=== PATIENT | female | born 1955 ===

== ENCOUNTER 2020-04-24 10:12 | Outpatient (REF) | payer MEDICARE, SELFPAY ==
[2020-04-24 12:14] LABS: Thyroid Stimulating Hormone 0.33 uIU/mL (0.32-4.0)
== END 2020-04-24 10:13 | disposition home or self-care (01) ==
LOC: HO.HMGCLDS 10:12
PROVIDERS: PCP Internal Medicine; Visit Provider Internal Medicine
DX: E03.9 Hypothyroidism, unspecified (principal)
CPT/HCPCS: 84439; 84443

== ENCOUNTER 2020-05-15 13:51 | Outpatient (REF) | payer MEDICARE, SELFPAY ==
--- NOTE | 2020-05-15 13:56 | XR_ITS ---
EXAMINATION: XR HAND, RIGHT CLINICAL INFORMATION: Dog bite injury. COMPARISON: None TECHNIQUE: PA, lateral, and oblique views of the right hand. FINDINGS: There is mild soft tissue swelling and laceration along the proximal fourth finger. No radiographic radiopaque foreign body are fracture seen. Mild degenerative changes are seen along the PIP and DIP joints. XR/XR hand RT min 3V IMPRESSION: Soft tissue swelling proximal fourth finger with laceration. No radiopaque foreign body or fracture seen.
== END 2020-05-15 13:52 | disposition home or self-care (01) ==
LOC: HO.HMGCX 13:51
PROVIDERS: PCP Internal Medicine; Visit Provider Nurse Practitioner Family
DX: Z13.89 Encounter for screening for other disorder (principal)
CPT/HCPCS: 73130

== ENCOUNTER 2020-05-15 17:43 | Outpatient (REF) | payer MEDICARE, SELFPAY | END 2020-05-15 17:44 | disposition home or self-care (01) | LOC: HO.LAB 17:43 | PROVIDERS: Visit Provider Nurse Practitioner Family | DX: L03.90 Cellulitis, unspecified (principal); S61.259A Open bite of unspecified finger without damage to nail, initial encounter; W54.0XXA Bitten by dog, initial encounter | CPT/HCPCS: 73130; 87071; 87205 ==

== ENCOUNTER 2020-05-30 11:43 | Emergency (ER) | payer MEDICARE, SELFPAY ==
--- NOTE | 2020-05-30 12:16 | ED_ITS ---
HPI - Animal Bite General Chief Complaint: Animal Bite Stated Complaint: dog bite on finger Time Seen by Provider: 05/30/20 12:06 Source: patient Mode of arrival: ambulatory Limitations: no limitations History of Present Illness HPI narrative: 64-year-old female with a past medical history of COPD, hypothyroidism here with right 4th digit swelling, pain. The patient tells me on May 15 she broke up a fight between 2 dogs and was bitten on the right hand. She was seen at urgent care and started on doxycycline for presumed cellulitis. She had x-rays done which was negative for any foreign body or evidence of osteomyelitis. A wound culture was sent from the site and grew pasteurella. The patient was changed to Levaquin 2 days later by Urgent Care. She completed her course 05/28. She tells me initially her our entire hand extending over the wrist was swollen and red. She tells me that this is imp roved but her 4th digit is still swollen, painful and she has difficulty bending and extending the finger. She tells me this digit is where the initial bite was. No fevers or chills. complaint: animal bite Onset (ago): week(s) Animal: dog Description of animal: immunizations UTD and appeared well Mechanism: bite Location - Extremities: right: hand Pain description: dull Context: animals fighting Related Data Home Medications Medication Instructions Recorded Confirmed albuterol sulfate 90 mcg/actuation 2 puff INHALATION Q6H PRN 05/01/20 05/01/20 aerosol inhaler budesonide-formoterol HFA 160 2 puff INHALATION Q12H 05/01/20 05/01/20 mcg-4.5 mcg/actuation aerosol inhaler cetirizine 10 mg tablet 5 mg PO DAILY PRN 05/01/20 05/01/20 cholecalciferol (vitamin D3) 50 50 mcg PO DAILY 05/01/20 05/01/20 mcg (2,000 unit) capsule fluticasone propionate 50 1 spray INTRANASAL DAILY 05/01/20 05/01/20 mcg/actuation nasal spray,suspension flu vacc [id number](65yr up)-PF 240 ml IM 05/15/20 mcg/0.7 mL intramuscular syringe Previous Rx's Medication Instructions Recorded levothyroxine 112 mcg tablet 112 mcg PO DAILY #90 tab 04/16/20 doxycycline hyclate 100 mg tablet 100 mg PO BID 10 Days #20 tab 05/15/20 levofloxacin 750 mg tablet 750 mg PO DAILY 10 Days #10 tab 05/18/20 Allergies Allergy/AdvReac Type Severity Reaction Status Date / Time penicillin V Allergy Unknown hives Verified 05/15/20 13:04 Bee stings Allergy Unknown hives Uncoded 05/15/20 13:04 Review of Systems Review of Systems: Yes all other systems are reviewed and are negative Constitutional: Constitutional: Reports no additional constitutional complaints, Denies body ache(s), Denies chills, Denies fever(s), Denies headache(s) and Denies weakness Eyes: Eyes: Reports no additional eye complaints and Denies change in vision ENT: Reports system reviewed and no additional complaints, except as documented, Denies dizziness, Denies headache(s), Denies nasal congestion, Denies nasal discharge and Denies neck pain Cardiovascular: Cardiovascular: Reports no additional cardiovascular complaints, Denies chest pain, Denies leg edema and Denies dyspnea Respiratory: Respiratory: Reports no additional respiratory complaints, Denies cough and Denies dyspnea Gastrointestinal: Gastrointestinal: Reports no additional gastrointestinal complaints, Denies abdominal pain, Denies diarrhea, Denies nausea and Denies vom iting Genitourinary: Genitourinary: Reports no additional female genitourinary complaints and Denies urinary incontinence Musculoskeletal: Musculoskeletal: Reports no additional musculoskeletal complaints, Denies back pain, Reports arthralgias, Reports joint swelling, Reports limited range of motion, Denies neck pain, Denies numbness and Denies tingling Integumentary/Breasts: Skin/Breast: Reports system reviewed and no additional complaints, except as docu and Denies rash Neurologic: Reports system reviewed and no additional complaints, except as documented, Denies Abnormal speech present, Denies dizziness, Denies he adache(s), Denies numbness, Denies tingling and Denies weakness ON LICENSE OF [facility] Past Medical History Attestation statement: The following information was validated with the patient. Source: old records reviewed and nursing notes reviewed Medical History Acquired hypothyroidism Allergic rhinitis Colonoscopy refused COPD (chronic obstructive pulmonary disease) Graves disease Herpes zoster Osteopenia of left hip Urinary, incontinence, stress female Surgical History No pertinent past surgical history Family History Family History Father Diabetes mellitus Mother Diabetes mellitus Brother Bone cancer Daughter No problems noted. Daughter No problems noted. Social History Social History Alcohol intake: never Smoking Status: Former smoker Smoked in Last 30 Days: No Use of substances other than those prescribed or required for medical reasons: No Advance Directives: No Advance Directives Information Provided: Yes Physical Exam Vital Signs: Vital Signs: Last Vital Signs Temp 98.1 F 05/30/20 13:19 Pulse 70 05/30/20 13:19 Resp 16 05/30/20 13:19 BP 104/63 05/30/20 13:19 Pulse Ox 97 05/30/20 13:19 Const: General: cooperative, healthy appearing, comfortable and no acute distress Orientation/consciousness: patient oriented x3 Limitations: no limitations HENMT: Head: Yes normal to inspection Ears: hearing grossly normal bilaterally General nose exam: Normal external nose present Face and sinus: Yes normal facial exam Mouth: Normal oral and palatal mucosa present Throat: Yes posterior oropharynx normal Eyes: General: appearance normal, both eyes and all related structures Pupils: Equal, round and reactive pupils present Neck: Neck: Yes normal visual inspection Chest: Chest palpation & inspection: normal inspection of the chest Resp: Effort & Inspection: normal respiratory effort Auscultation: clear to auscultation bilaterally Cardio: Rate: regular rate Rhythm: regular rhythm Peripheral pulses: Peripheral pulses 2+ throughout GI: Inspection: Yes normal to inspection Palpation (GI): Soft to palpation and nontender Auscultation: normal bowel sounds Back/Spine/Pelvis: Thoracic/Lumbar Spine: thoracic and lumbar spine normal to inspection Skin: General skin exam: no rashes or lesions noted Neuro: General: patient oriented x3, no focal motor deficits and normal sensation to monofilament Cranial nerves: Yes Equal, round and reactive pupils present Cognition (Neuro): normal cognition Speech: No Abnormal speech present Gait exam (Neuro): Normal gait present Motor exam (neuro): 5/5 motor strength present throughout Extrem: Other: Normal cap refill, NV intact distally. Finger is in a partially flexed position and she is able to flex approximately 15 degrees. Unable to full extend. I am passively able to extend the finger although there is some mild pain. At the PIP there is more swelling but no induration or abscess, only mild tenderness. General: Yes normal to inspection Course Course Course Narrative: 64 yo female here with Right hand 4th digit swelling, tenderness and difficulty flexing and extending the finger. Of note, 2 weeks ago patient suffered a dog bite to this hand and had a subsequent Pasteurella + cellulitis treated with 48 hrs of doxycyline then 10 days of levaquin which she completed 2 days ago. She tells me overall she is feeling improved and the cellulitis is much better then previous. No fevers. On exam patient has swelling/tenderness to the PIP of the 4th digit and finger is held in a slight flexion. She is unable to full extend the digit. She is able to flex the digit approximately 15 more degrees. Will repeat imaging to r/o osteomyelitis. Discuss with orthopedics. 1330-x-ray shows arthritic changes. No obvious osteomyelitis. Call out to Orthopedics to discuss [id number]-discussed with Meg VELASQUEZ from Orthopedics. Recommended follow-up 1 week in office with Dr. Alvarez. Warm soaks 3-4 times daily. Passive range of motion. Agrees less likely tenosynovitis as patient has no pain over palmar or dorsa aspect and I am able to passively move the digit (mild pain with this). More likely inflammation of the tendon from the previous injury or may be a small tear. Reviewed worrisome signs and symptoms and when to return to the emergency department. Comfortable with discharge home. MDM - Animal Bite MDM Narrative Medical decision making narrative: Tendon laceration, tenosynovitis, osteomyelitis Medical Records Attestation: I reviewed the patient's medical records. Lab Data Attestation: I reviewed the patient's lab results. Imaging Data hand xray: Attestation: I personally reviewed and interpreted this imaging study as follows: Radiologist's impression: EXAMINATION: XR HAND, RIGHT CLINICAL INFORMATION: Swelling fourth digit. COMPARISON: None TECHNIQUE: PA, lateral, and oblique views of the right hand. FINDINGS: There is loss of PIP and DIP joint space with mild periarticular spurring first digit. No visible acute fracture, dislocation or subluxation seen. The soft tissues are normal. XR/XR hand RT 2V IMPRESSION: Mild degenerative changes PIP and DIP joints. No visible acute fracture, dislocation or lytic process seen. Discharge Plan Discharge Clinical Impression: Tendon dysfunction Patient Disposition: Home, Self-Care Instructions: Tendinitis (ED) Additional Instructions: I think there is some inflammation that is in the tendon from your previous injury. There may also be a small tear to the tendon. I spoke to the orthopedic team. They recommended following up with them within 1 week in the office. I have attached the number. They also recommended doing soaks 3-4 times daily with warm water. Do passive range of motion with her other finger several times a day as well. Return for fevers, increasing redness up the hand as discussed Prescriptions: No Action levothyroxine 112 mcg tablet 112 mcg PO DAILY Qty: 90 RF: 0 levofloxacin 750 mg tablet 750 mg PO DAILY 10 Days Qty: 10 RF: 0 budesonide-formoterol [Symbicort] 160-4.5 mcg/actuation HFA aerosol inhaler 2 puff inhalation Q12H RF: 0 albuterol sulfate [ProAir HFA] 90 mcg/actuation HFA aerosol inhaler 2 puff inhalation Q6H PRNRF: 0 cholecalciferol (vitamin D3) 50 mcg (2,000 unit) capsule 50 mcg PO DAILY RF: 0 cetirizine [All Day Allergy (cetirizine)] 10 mg tablet 5 mg PO DAILY PRNRF: 0 fluticasone propionate [Allergy Relief (fluticasone)] 50 mcg/actuation spray,suspension 1 spray intranasal DAILY RF: 0 Fluzone HighDose Quad 20-21 PF 240 mcg/0.7 mL syringe IM RF: 0 doxycycline hyclate 100 mg tablet 100 mg PO BID 10 Days Qty: 20 RF: 0 Referrals: Chata Alvarez MD [Physician] - 1 week Interventions: ED Discharge Assessment Last Done: 05/30/20 13:59 Discharge Date/Time: 05/30/20 14:00
[2020-05-30 13:19] VITALS: BP 104/63; PULSE 70; RESP 16; TEMP 36.7; O2SAT 97
--- NOTE | 2020-05-30 13:59 | PC.NURSE ---
pt states she will follow with ortho as instructed and return if she develops worsening SX, fever or increased swelling.
== END 2020-05-30 14:00 | disposition home or self-care (01) ==
PROVIDERS: Emergency Provider Emergency Medicine; PCP Internal Medicine
DX: M77.8 Other enthesopathies, not elsewhere classified (principal); M79.644 Pain in right finger(s)
CPT/HCPCS: 73120; 99283; 99284

== ENCOUNTER 2020-06-18 12:37 | Outpatient (REF) | payer MEDICARE, SELFPAY | END 2020-06-18 12:38 | disposition home or self-care (01) | LOC: HO.HOSX 12:37 | PROVIDERS: Visit Provider Orthopaedic Surgery | DX: Z13.89 Encounter for screening for other disorder (principal) ==

== ENCOUNTER 2020-10-16 08:35 | Outpatient (REF) | payer MEDICARE, SELFPAY ==
[2020-10-16 11:24] LABS: MANUAL DIFF FLAG NO
[2020-10-16 11:28] LABS: Basophils Absolute Auto 0.1 X10*3/uL (0.0-0.2); Basophils Percent Auto 0.8 % (0-2); Eosinophils Absolute Auto 0.1 X10*3/uL (0.0-0.4); Eosinophils Percent Auto 1.3 % (0-4); Hematocrit 43.8 % (37-47); Hemoglobin 13.4 g/dl (12.0-16.0); Imm Gran Abs Auto 0.03 X10*3/uL (0.00-0.03); Imm Gran Pct Auto 0.3 % (0.0-0.4); Lymphocytes Absolute Auto 3.4 X10*3/uL (1.2-4.9); Lymphocytes Percent Auto 32.4 % (20-40); Mean Corpuscular HGB Conc 30.6 g/dl (31.0-35.0); Mean Corpuscular Hemoglobin 21.2 pg (27.0-33.0); Mean Corpuscular Volume 69.4 fL (80-98); Mean Platelet Volume 10.3 fL (9.4-12.3); Monocytes Absolute Auto 0.8 X10*3/uL (0.1-1.2); Monocytes Percent Auto 7.5 % (2-11); Neutrophils Percent Auto 57.7 % (45-73); Platelet Count 325 X10*3/uL (160-400); Red Blood Count 6.31 X10*6/uL (4.20-5.50); Red Cell Distribution Width 17.7 % (11.0-16.0); White Blood Count 10.4 X10*3/uL (4.8-10.8)
[2020-10-16 11:56] LABS: Alanine Aminotransferase 14 U/L (0-31); Anion Gap 13 (12-20); Aspartate Amino Transferase 15 U/L (5-31); Blood Urea Nitrogen 12 mg/dL (9-16); Calcium 9.3 mg/dL (8.4-10.2); Carbon Dioxide 27 mmol/L (22-29); Chloride 102 mmol/L (96-108); Cholesterol 167 mg/dL; Estimated Glomerular Filt Rate > 60; Glucose Fasting 88 mg/dL (60-99); HDL Cholesterol 54 mg/dL; LDL Cholesterol Calculated 96 mg/dl; Potassium 4.3 mmol/L (3.3-5.1); Sodium 138 mmol/L (135-145); Triglycerides 87 mg/dL
[2020-10-16 12:02] LABS: Free T4 (Free Thyroxine) 1.11 ng/dL (0.71-1.85); Thyroid Stimulating Hormone 2.29 uIU/mL (0.32-4.0)
== END 2020-10-16 08:36 | disposition home or self-care (01) ==
LOC: HO.HMGCLDS 08:35
PROVIDERS: PCP Internal Medicine; Visit Provider Internal Medicine
DX: M85.852 Other specified disorders of bone density and structure, left thigh (principal); J43.9 Emphysema, unspecified; E03.9 Hypothyroidism, unspecified; I10 Essential (primary) hypertension; Z78.0 Asymptomatic menopausal state
CPT/HCPCS: 36415; 80048; 80061; 82306; 84439; 84443; 84450; 84460; 85025

== ENCOUNTER 2021-05-06 10:26 | Outpatient (REF) | payer MEDICARE, SELFPAY ==
--- NOTE | ~2021-05-06 | CT_ITS ---
EXAMINATION: CT CHEST SCREENING CLINICAL INFORMATION: Nicotine dependence. COMPARISON: CT chest 01/10/2019. TECHNIQUE: Multidetector volumetric CT imaging of the chest is performed without contrast using low dose technique. Additional 2D coronal and sagittal reformatted images and axial 3D maximum intensity projection (MIP) images are generated on the CT workstation. This CT examination was performed using dose optimization techniques as appropriate, variously including the following: *Automated exposure control *Adjustment of mA and/or kV according to patient size (this includes techniques or standardized protocols for targeted exams where dose is matched to indication/reason for exam; i.e. extremities or head) *Use of iterative reconstruction technique DLP: 49 mGy-cm FINDINGS: LUNGS: There is centrilobular and paraseptal emphysema. There are subpleural reticular markings throughout both upper lobes especially right lung. There are bilateral lung nodules. Previously seen 3 mm pulmonary nodule right upper lobe is not visualized at this time. There is however a 2 mm nodule in the right upper lobe axial image 185/6. A 4 mm nodule in the right lower lobe on axial image 287/6 adjacent to the right major fissure is stable. 2 mm nodule left lower lobe axial image 348/6 appears new. Minimal atelectatic changes in the lung bases. MEDIASTINUM: The thyroid lobes are symmetrical and normal. Central trachea and the bronchi are widely patent. The heart size and the great vessels are normal caliber. No abnormal-sized mediastinal or hilar lymph node seen. There is no pericardial effusion. PLEURA: There is no pleural effusion. No pleural mass or thickening. AXILLA: No lymphadenopathy. UPPER ABDOMEN: Visualized liver, spleen, pancreas and bilateral adrenal glands are unremarkable. OSSEOUS STRUCTURES: There is mild spondylosis throughout dorsal spine. No lytic or sclerotic process seen. CT/CT lung screening IMPRESSION: Centrilobular and paraseptal emphysema predominately in the upper lobes. There are bilateral subcentimeter pulmonary nodules. One nodule has resolved and there is a new nodule measuring 2 mm suggestive of waxing and waning nodules. No acute consolidation. No abnormal mediastinal lymphadenopathy. ASSESSMENT: Lung-RADS category 2: Benign. RECOMMENDATION: Annual low-dose chest CT follow-up recommended.
== END 2021-05-06 10:27 | disposition home or self-care (01) ==
LOC: HO.CT 10:26
PROVIDERS: PCP Internal Medicine; Visit Provider Physician Assistant Medical
DX: Z12.2 Encounter for screening for malignant neoplasm of respiratory organs (principal); F17.210 Nicotine dependence, cigarettes, uncomplicated
CPT/HCPCS: 71271

== ENCOUNTER 2021-05-08 09:05 | Outpatient (REF) | payer MEDICARE, SELFPAY ==
[2021-05-08 12:11] LABS: Free T4 (Free Thyroxine) 1.02 ng/dL (0.71-1.85); Thyroid Stimulating Hormone 2.87 uIU/mL (0.32-4.0)
== END 2021-05-08 09:06 | disposition home or self-care (01) ==
LOC: HO.HMGCLDS 09:05
PROVIDERS: PCP Internal Medicine; Visit Provider Internal Medicine
DX: E03.9 Hypothyroidism, unspecified (principal)
CPT/HCPCS: 36415; 84439; 84443

== ENCOUNTER 2022-03-11 08:18 | Outpatient (REF) | payer MEDICARE, SELFPAY ==
[2022-03-11 12:29] LABS: Free T4 (Free Thyroxine) 1.69 ng/dL (0.71-1.85); Thyroid Stimulating Hormone 0.39 uIU/mL (0.32-4.0); Vitamin D 25-OH Total 56.1 ng/mL (>30)
== END 2022-03-11 08:19 | disposition home or self-care (01) ==
LOC: HO.HMGCLDS 08:18
PROVIDERS: PCP Internal Medicine; Visit Provider Internal Medicine
DX: M85.852 Other specified disorders of bone density and structure, left thigh (principal); N95.9 Unspecified menopausal and perimenopausal disorder; E03.9 Hypothyroidism, unspecified
CPT/HCPCS: 36415; 82306; 84439; 84443

== ENCOUNTER 2022-03-28 10:45 | Outpatient (REF) | payer MEDICARE, SELFPAY ==
--- NOTE | ~2022-03-28 | MM_ITS ---
EXAMINATION: BONE DENSITOMETRY CLINICAL INDICATION: Osteopenia. COMPARISON: Previous BD dated 01/22/2017 and baseline BD dated 01/09/2011. TECHNIQUE: Using a [employer] DXA System (software version: 13.1) manufactured by [employer], dual-energy x-ray absorptiometry was performed of the lumbar spine and left hip. The images are of good technical quality. Summary results are attached. FINDINGS: AP SPINE L1-L4: Current: BMD 1.010 g/cm2, Z-score 0.2, T-score -1.4, osteopenia, 1.5% decrease from previous, 8.0% decrease from baseline (<5% change is not significant). Prior: BMD 1.025 g/cm2. Baseline: BMD 1.098 g/cm2. LEFT FEMUR, NECK: Current: BMD 0.747 g/cm2, Z-score -0.5, T-score -2.1, osteopenia. Prior: BMD 0.801 g/cm2. Baseline: BMD 0.898 g/cm2. LEFT FEMUR, TOTAL: Current: BMD 0.760 g/cm2, Z-score -0.6, T-score -2.0, osteopenia, 9.4% decrease from previous, 21.9% decrease from baseline (<5% change is not significant). Prior: BMD 0.839 g/cm2. Baseline: BMD 0.973 g/cm2. IDENTIFIED RISK FACTORS: Menopause, tobacco use (current smoker). HISTORY OF FRACTURE: None listed. MEDICATIONS: Vitamin D. MM/XR DEXA axial skeleton IMPRESSION: 1. DIAGNOSIS: Osteopenia based on the lowest T-score value of -2.1 in the femoral neck applying World Health Organization criteria. 2. 10-YEAR FRACTURE RISK PREDICTION, FRAX: Major osteoporotic fracture (clinical spine, forearm, hip or shoulder) 12.4%. Hip fracture 3.8%. 3. Treatment Recommendations: NOF guidelines recommend consideration for treatment in postmenopausal women and men age 50 and older presenting with the following: -A hip or vertebral (clinical or morphometric) fracture. -T-score less than or equal to -2.5 at the femoral neck or spine after appropriate evaluation to exclude secondary causes. -Low bone mass at the hip or spine and a 10-year fracture probability by FRAX of greater than or equal to 3% for hip fracture or greater than or equal to 20% for major osteoporotic fracture based on the [place] adapted WHO algorithm. 4. Other Recommendations: All treatment decisions require clinical judgment and consideration of individual patient factors, including patient preferences, comorbidities, previous drug use, risk factors not captured in the FRAX model (e.g. frailty, falls, vitamin D deficiency, increased bone turnover, interval significant decline in bone density) and possible under or overestimation of fracture risk by FRAX. Additional medical evaluation for secondary cause of low bone mineral density may be appropriate. FUTURE SCAN RECOMMENDATION: People with diagnosed cases of osteoporosis or at high risk for fracture should have regular bone mineral density tests. For patients eligible for Medicare, routine testing is allowed once every 2 years. The testing frequency can be increased to one year for patients who have rapidly progressing disease, those who are receiving or discontinuing medical therapy to restore bone mass, or have additional risk factors. .
--- NOTE | ~2022-03-28 | MM_ITS ---
EXAMINATION: MM SCREENING DIGITAL BREAST TOMOSYNTHESIS, BILATERAL CLINICAL INFORMATION: Screening. Asymptomatic. The lifetime risk of breast cancer based on the Tyrer-Cuzick Model is 5%. COMPARISON: Mammography: 03/24/2018 and studies dating back to 04/05/2007. TECHNIQUE: Digital breast tomosynthesis is performed in both the craniocaudal and mediolateral oblique views along with computer-aided detection (CAD). Synthesized 2D images are generated from the tomosynthesis. FINDINGS: There are scattered areas of fibroglandular density (ACR BI-RADS breast composition Category b). There is a stable parenchymal pattern of the right breast. Question somewhat ill-defined density not seen on prior studies about the deep lateral aspect of the left breast, approximately 10 cm from the nipple, measuring 4 mm in diameter. Recommend spot compression view and rolled craniocaudal views for further evaluation. I do not see a corresponding mediolateral oblique image finding. MM/MM tomosynthesis screening BI IMPRESSION: Left breast density for further evaluation. ASSESSMENT: BI-RADS 0: Incomplete - Need Additional Imaging Evaluation RECOMMENDATION: 1. Additional views of the left breast. 2. Targeted ultrasound if warranted after review of the additional views. 3. Radiology department staff will contact the patient for additional imaging. This patient's information was entered into a reminder system with a target due date for their next mammogram.
== END 2022-03-28 10:46 | disposition home or self-care (01) ==
LOC: HO.MAMMO 10:45
PROVIDERS: PCP Internal Medicine; Visit Provider Internal Medicine
DX: Z12.31 Encounter for screening mammogram for malignant neoplasm of breast (principal); Z13.820 Encounter for screening for osteoporosis; M85.852 Other specified disorders of bone density and structure, left thigh; Z78.0 Asymptomatic menopausal state
CPT/HCPCS: 77063; 77067; 77080

== ENCOUNTER 2022-04-09 12:41 | Outpatient (REF) | payer MEDICARE, SELFPAY ==
--- NOTE | ~2022-04-09 | MM_ITS ---
EXAMINATION: MM DIAGNOSTIC DIGITAL BREAST TOMOSYNTHESIS, LEFT CLINICAL INFORMATION: Asymmetric density deep lateral aspect of the left breast. COMPARISON: Mammography: March 28, 2022 and studies dating back to January 09, 2011 TECHNIQUE: Digital breast tomosynthesis is performed. 2D images are generated from the tomosynthesis. The following views are obtained: Rolled craniocaudal views and spot compression view in craniocaudal projection. FINDINGS: There are scattered areas of fibroglandular density (ACR BI-RADS breast composition Category b). Additional views show no significant mass, architectural abnormality, or abnormal calcifications. Results are provided to the patient at time of visit by the technologist. MM/MM tomosynthesis added views L IMPRESSION: No persistent left breast abnormality appreciated. ASSESSMENT: BI-RADS 1: Negative RECOMMENDATION: Routine annual mammography screening. This patient's information was entered into a reminder system with a target due date for their next mammogram.
== END 2022-04-09 12:42 | disposition home or self-care (01) ==
LOC: HO.MAMMO 12:41
PROVIDERS: PCP Internal Medicine; Visit Provider Internal Medicine
DX: R92.2 Inconclusive mammogram (principal)
CPT/HCPCS: 77061; 77065

== ENCOUNTER 2023-01-02 09:58 | Outpatient (REF) | payer MEDICARE, SELFPAY ==
--- NOTE | ~2023-01-02 | CT_ITS ---
EXAMINATION: CT CHEST SCREENING CLINICAL INFORMATION: Current smoker. 50 pack-year history. COMPARISON: Previous chest CT most recent April 2021 TECHNIQUE: Multidetector volumetric CT imaging of the chest is performed without contrast using low dose technique. Additional 2D coronal and sagittal reformatted images and axial 3D maximum intensity projection (MIP) images are generated on the CT workstation. This CT examination was performed using dose optimization techniques as appropriate, variously including the following: *Automated exposure control *Adjustment of mA and/or kV according to patient size (this includes techniques or standardized protocols for targeted exams where dose is matched to indication/reason for exam; i.e. extremities or head) *Use of iterative reconstruction technique DLP: 35 mGy-cm FINDINGS: LUNGS: There is evidence of severe emphysema. There is biapical pleural and parenchymal scarring. There are increased peripheral reticular markings suggestive of interstitial lung disease. Pulmonary nodules are stable. Largest pulmonary nodule measures 4 mm in the right lower lobe axial image 302 series 5. There are scattered areas of mild bronchial wall thickening and bronchial soft tissue opacification or mucus plugging. No suspicious endobronchial or endotracheal lesion. MEDIASTINUM: Normal heart size. Normal caliber tortuous thoracic aorta. No enlarged hilar or mediastinal lymph nodes. CORONARY ARTERY CALCIFICATION: Mild PLEURA: There is no pleural effusion. No pleural mass or thickening. AXILLA: No lymphadenopathy. UPPER ABDOMEN: Atherosclerotic disease. Question partially visualized abdominal aortic aneurysm. This measures 3.2 cm in maximum AP dimension. OSSEOUS STRUCTURES: Degenerative changes of the spine. CT/CT lung screening IMPRESSION: Severe emphysema. Biapical pleural parenchymal scarring and question mild peripheral interstitial disease. Stable small pulmonary nodules. Question partially visualized abdominal aortic aneurysm. Follow-up abdominal aortic ultrasound recommended. ASSESSMENT: Lung-RADS category 2S RECOMMENDATION: Annual low-dose chest CT follow-up.Follow-up abdominal aortic ultrasound recommended.
== END 2023-01-02 09:59 | disposition home or self-care (01) ==
LOC: HO.CT 09:58
PROVIDERS: PCP Internal Medicine; Visit Provider Physician Assistant Medical
DX: Z12.2 Encounter for screening for malignant neoplasm of respiratory organs (principal); F17.210 Nicotine dependence, cigarettes, uncomplicated
CPT/HCPCS: 71271

== ENCOUNTER 2023-05-15 08:55 | Outpatient (REF) | payer MEDICARE, SELFPAY ==
[2023-05-15 13:17] LABS: Alanine Aminotransferase 10 U/L (0-31); Aspartate Amino Transferase 14 U/L (5-31); Cholesterol 125 mg/dL (<200); Glucose Fasting 101 mg/dL (60-99); HDL Cholesterol 47 mg/dL (>40); LDL Cholesterol Calculated 66 mg/dL (<100); Triglycerides 60 mg/dL (<150)
[2023-05-15 13:36] LABS: Thyroid Stimulating Hormone 0.29 uIU/mL (0.32-4.0); Vitamin D 25-OH Total 55.3 ng/mL (>30)
== END 2023-05-15 08:56 | disposition home or self-care (01) ==
LOC: HO.HMGCLDS 08:55
PROVIDERS: PCP Internal Medicine; Visit Provider Internal Medicine
DX: I71.40 Abdominal aortic aneurysm, without rupture, unspecified (principal); E03.9 Hypothyroidism, unspecified; M85.80 Other specified disorders of bone density and structure, unspecified site; J43.9 Emphysema, unspecified; F17.210 Nicotine dependence, cigarettes, uncomplicated; N39.3 Stress incontinence (female) (male); L03.90 Cellulitis, unspecified
CPT/HCPCS: 36415; 80061; 82306; 82947; 84443; 84450; 84460

== ENCOUNTER 2023-07-06 10:41 | Outpatient (AMB) | payer MEDICARE, SELFPAY ==
--- NOTE | 2023-07-06 12:44 | MHC.OFFWIV ---
Intake Vital Signs 07/06/23 13:12 Weight 114 lb 8 oz BP 132/78 Blood Pressure Location Rt brachial Position Sitting Pulse 82 Pulse Source Pulse Oximeter Temp 97.2 F Temp Source Temporal Artery Scan Pulse Oximetry (%) 95 Oxygen Delivery Method Room Air Intake Visit Reasons: EST/COPD flair up(carmine,black/hensley) Intake Note: Pt is here c/o COPD flair up. Pt states her ribs, back hurt when she coughs. Pt has history of bronchitis. Patient Tobacco Use Status: Current everyday Tobacco user Allergies penicillin V Allergy (Unknown, Verified 07/06/23 13:15) hives Bee stings Allergy (Unknown, Uncoded 07/06/23 13:15) hives HPI HPI Comments History of Present Illness Details Patient presents to the office today evaluation management of cough and shortness of breath for past 2 weeks Patient history of COPD, still smoking less than 1 pack a day. Using albuterol MDI at home with minimal improvement Reports cough minimally productive of clear to yellow sputum Endorses tightness in her back that is somewhat improves with albuterol. Denies fevers, chills, night sweats, chest pain, palpitations, edema, syncope, weakness [facility] Medical History (Updated 07/06/23 @ 13:34 by Elsa Avalos APRN, DRAIN TECHNICIAN) Nicotine dependence, cigarettes, uncomplicated Osteopenia (~2016) Colon cancer screening Dog bite of finger Allergic rhinitis Herpes zoster Colonoscopy refused Urinary, incontinence, stress female COPD (chronic obstructive pulmonary disease) Graves disease Acquired hypothyroidism (~2004) Surgical History No pertinent past surgical history Family History Father Diabetes mellitus Mother Diabetes mellitus Brother Bone cancer Daughter No problems noted. Daughter No problems noted. Social History Alcohol intake: never Patient Tobacco Use Status: Current everyday Tobacco user Review of Systems Const All systems reviewed & are unremarkable except as noted in HPI and below Physical Exam Vital Signs: Last Vital Signs Temp 97.2 F 07/06/23 13:12 Pulse 82 07/06/23 13:12 BP 132/78 07/06/23 13:12 Pulse Ox 95 07/06/23 13:12 Oxygen Delivery Method Room Air 07/06/23 13:12 General: awake, alert, oriented. Answers questions appropriately. Fully engaged in examination. Skin: warm, dry, intact HEENT: TMs intact bilaterally, without erythema or exudate. Posterior pharynx without erythema or exudate. Sclera without icterus or injection. Cardiac: External chest normal in appearance. Respiratory: Lung sounds diminished throughout with prolonged expiratory wheeze. Abdomen: without gross distension. Neurological: Oriented to person, place, time and situation. Thought process intact. Psychiatric: Appropriate mood and affect. Good judgment and insight. Office Procedures Nebulizer Treatment Nebulizer Treatment [id number] RX initial, or Nebulizer Subsequent Treatment Office Meds albuterol sulfate 2.5 mg/3 mL (0.083 %) solution for nebulization Performing Provider: Elsa Avalos APRN, DRAIN TECHNICIAN Performing Location: [facility] (formerly [facility]) Administered by: Mireya Armstrong RN on 07/06/23 14:12 Dose Route Admin Location Dispensed Lot Number Expiration Date [facility] Postal Clerk 2.5 mg inhalation 3 mL [id number] 08/06/24 74730-702-58 [facility] Results Reviewed Results Reviewed: Chest x-ray: No infiltrate or effusion Assessment & Plan Assessment & Plan (1) Shortness of breath: Code(s): R06.02 - Shortness of breath Plan COPD exacerbation: Symptoms improved after albuterol nebulizer treatment Chest x-ray ordered and independently reviewed, no effusion or infiltrate Ambulation trial, saturation remained above 93% Prednisone 40 mg p.o. daily for 5 days Azithromycin as directed Patient declined refill of her albuterol MDI. Continue to use as prescribed Patient advised to seek treatment in the emergency room for any new or worsening shortness of breath, chest pain, palpitations, syncope, weakness or other concerns Follow-up with PCP or return here as needed Orders: Orders XR chest 2V 07/06/23 R06.02 - Shortness of breath AMB Nebulizer Treatment 07/06/23 R06.02 - Shortness of breath Medications: New prednisone 40 mg (2 x 20 mg) PO DAILY 5 days 10 tabs 0RF azithromycin For 250 mg dose pack: take 500 mg today (day 1), then 250 mg for 4 days (days 2-5) PO 6 tabs 0RF Coding Level of Care Code Est Pt Level 4 (74466) Diagnoses Shortness of breath R06.02 CPT Codes Nebulizer Treatment - Nebulizer Treatment, initial or subsequent: [id number]/[id number] RX initial, or Nebulizer Subsequent Treatment ([id number])
[2023-07-06 13:12] VITALS: BP 132/78; PULSE 82; TEMP 36.2; O2SAT 95
== END 2023-07-06 15:17 | disposition home or self-care (01) ==
PROVIDERS: PCP Internal Medicine; Visit Provider Registered Nurse Emergency
DX: R06.02 Shortness of breath (principal)
CPT/HCPCS: 94640; 99214; J7613

== ENCOUNTER 2023-07-06 13:38 | Outpatient (REF) | payer MEDICARE, SELFPAY ==
--- NOTE | ~2023-07-06 | XR_ITS ---
EXAMINATION: XR CHEST CLINICAL INFORMATION: Shortness of breath. COMPARISON: None available. TECHNIQUE: 2 views of the chest were obtained. FINDINGS: The lungs are hyperinflated without acute consolidation. Heart size and pulmonary vascularity is normal. No gross bony abnormality seen. XR/XR chest 2V IMPRESSION: Hyperinflated lungs without acute process.
== END 2023-07-06 13:39 | disposition home or self-care (01) ==
LOC: HO.HMGCX 13:38
PROVIDERS: Visit Provider Registered Nurse Emergency
DX: R06.02 Shortness of breath (principal)
CPT/HCPCS: 71046

== ENCOUNTER 2023-07-13 08:15 | Outpatient (AMB) | payer MEDICARE, SELFPAY ==
--- NOTE | 2023-07-13 08:28 | A.OFFVIS_ITS ---
Intake Vital Signs 07/13/23 08:32 Height 5 ft 7 in Weight 116 lb BMI 18.2 BP 118/64 Blood Pressure Location Rt brachial Position Sitting Pulse 72 Pulse Source Pulse Oximeter Pulse Oximetry (%) 97 Oxygen Delivery Method Room Air Intake Visit Reasons: AWV Intake Note: Pt is here today for her AWV Allergies penicillin V Allergy (Unknown, Verified 07/13/23 08:38) hives Bee stings Allergy (Unknown, Uncoded 07/13/23 08:38) hives Medication List - Last Reconciled 07/13/23 by Kristin Miranda MD albuterol sulfate 90 mcg/actuation (ProAir HFA) 2 puffs inhalation Q6H PRN budesonide-formoterol 160-4.5 mcg/actuation (Symbicort) 2 puffs inhalation Q12H cholecalciferol (vitamin D3) 50 mcg PO DAILY levothyroxine 112 mcg PO DAILY HPI AWV HPI Details SWV ? 67 year old acquired hypothyroidism, osteopenia, COPD with emphysema, presents for her subsequent? Annual Wellness Visit,. She is up-to-date with her bone density scan done 03/28/2022 which showed presence of osteopenia in her left femoral neck and lumbar spine, due for her screening mammogram, last done in 2021, no longer gets Pap smears or cervical cancer screening, and has never had a colonoscopy, refused procedure but wants to do Cologuard testing instead . She is currently getting yearly low-dose CT scan for lung cancer screening, sees Dr. Reyna. She is up-to-date with her vaccines but has not yet had his shingles vaccine or the RSV vaccine. ? Medical / Social History Reviewed? Past Medical History ?Yes . ? [place] of Care / Care Team list updated ?Yes . ? Surgical/Hospitalization History ?Yes . ? Current Medications (including OTC and supplements) ?Yes . ? Family History ?Yes . ? Tobacco Control form ?Yes . ? AUDIT-C (Alcohol use) form ?Yes . ? Illicit drug use in Social History ?Yes . ? Current diagnosis of depression? ?No ? Appropriate PHQ2/PHQ9 completed ?Yes . ? Data entered by ?[employer] and reviewed by provider ? Fall Risk ? Fall History? Have you had any falls with injury in the past year? ?No . ? Have you had two or more falls in the past year? ?No . ? Fall Risk Assessment: ?No falls in the past year . ? HRA filled out by the patient, reviewed by Provider and scanned. ? IPPE/AWV ? Balance? Romberg ?Yes . ? Tandem walk ?Yes . ? Walk and Turn ?Yes . ? Rise from sit to stand ?Yes . ?Vision? Corrective lens ?Yes ? Vision screen ? Up-to-date, goes to [facility] ?Hearing? Whisper test ?pass . ?Written Plan?Completed. See Patient Documents.? HPI Comments History of Present Illness Details 67-year-old lady with severe emphysema, active cigarette smoker, has abdominal aortic aneurysm, acquired hypothyroidism, and osteopenia of multiple sites, here today wanting help with quitting smoking. Has been on bupropion and Chantix in the past which has helped, would like to try medications again to help quit has severe emphysema, still complaining of recurrent cough things spells accompanied by shortness of breath on exertion, currently on Symbicort and ProAir, Has been under lot of stress lately taking care of her who is ill, PHQ-9 and nicole score came back positive, [facility] Medical History (Updated 07/13/23 @ 09:25 by Kristin Miranda MD) Nicotine dependence, cigarettes, uncomplicated Osteopenia (~2016) Colon cancer screening Dog bite of finger Herpes zoster Colonoscopy refused Urinary, incontinence, stress female COPD (chronic obstructive pulmonary disease) Graves disease Acquired hypothyroidism (~2004) Surgical History No pertinent past surgical history Family History Father Diabetes mellitus Mother Diabetes mellitus Brother Bone cancer Daughter No problems noted. Daughter No problems noted. Social History Alcohol intake: never Patient Tobacco Use Status: Current everyday Tobacco user Questionnaire Medicare Wellness Checkup What [age]?: [age] What gender do you identify with?: female During the past 4 weeks, how much have you been bothered by emotional problems such as feeling anxious, depressed, irritable, sad or downhearted, and blue?: slightly During the past 4 weeks, has your physical & emotional health limited your social activities with family, friends, neighbors, or groups?: not at all During the past 4 weeks, how much bodily pain have you generally had?: mild pain During the past 4 weeks, was someone available to help you if you needed & wanted help?: yes, quite a bit During the past 4 weeks, what was the hardest physical activity you could do for at least 2 minutes?: moderate Can you get to places out of walking distance without help? (For eg., can you travel alone on buses, taxis or drive your car?): Yes Can you go shopping for groceries or clothes without someone's help?: Yes Can you prepare your own meals?: Yes Can you do your housework without help?: Yes Because of any health problems, do you need the help of another person with your personal care needs such as eating, bathing, dressing or getting around the house?: No Can you handle your own money without help?: Yes During the past 4 weeks, how would you rate your health in general?: good During the past 4 weeks how have things been going for you?: good & bad parts about equal Are you having difficulties driving your car?: no Do you always fasten your seat belt when you are in a car?: yes, usually During past 4 weeks, have you been bothered by the following: never: Problems using the telephone?, seldom: Falling or dizzy when standing up and Trouble eating well? and sometimes: Sexual problems?, Teeth or denture problems? and Tiredness or fatigue? Have you fallen 2 or more times in the past year?: No Are you afraid of falling?: No Are you a smoker?: yes, but I'm not ready to quit During the past 4 weeks, how many drinks of wine, beer, or other alcoholic beverages did you have?: no alcohol at all Do you exercise for about 20 minutes 3 or more times a week?: no, I usually do not exercise this much Have you been given information to help with the following?: yes: Hazards in your house that might hurt you? and yes: Keeping track of your medications? How often do you have trouble taking medicines the way you have been told to take them?: I always take medicine as prescribed How confident are you that you can control & manage most of your health problems?: very confident What is your race?: White Mini Mental State Exam (MMSE) Orientation What is the (year) (season) (date) (day) (month)?: year (2023), season (winter), date (07/13/23), day (Thursday) and month (july) Where are we (state) (county) (town or city) (hospital) (floor)?: state ([place]), [facility]), town or city ([place]) and hospital/clinic ([facility]) Score Score: 9 Activity of Daily Living Bathing - sponge bath, tub bath or shower: receives no assistance (gets in/out by self, if usual bathing means Dressing - getting clothes from closets & drawers, including inner/outer garments & fasteners.: gets clothes & gets completely dressed without help Transfer: moves in & out of bed and chair without help (may use support object) Continence: controls urination/bowel movements completely by self Feeding: feeds self without help Total Score: 0 Information obtained from: patient Using telephone: independent Traveling: independent Shopping: independent Preparing meals: independent Housework: independent Taking medicine: independent Managing money: independent PHQ-9 Over the last 2 weeks, how often have you been bothered by any of the following problems? 1. Little interest or pleasure in doing things: not at all 2. Feeling down, depressed, or hopeless: several days 3. Trouble falling or staying asleep, or sleeping too much: not at all 4. Feeling tired or having little energy: several days 5. Poor appetite or overeating: not at all 6. Feeling bad about yourself - or that you are a failure or have let yourself or your family down: not at all 7. Trouble concentrating on things, such as reading the newspaper or watching television: several days 8. Moving or speaking so slowly that other people could have noticed. Or the opposite - being so fidgety or restless that you have been moving around a lot more than usual: not at all 9. Thoughts that you would be better off or of hurting yourself in some way: not at all Total score: 3 Depression Screening Interpretation: Positive Depression Screening Follow-up: Existing condition, New Medication prescribed and Community Mental Health Worker F/U Depression Screening Done: Yes [id number] - PHQ-9 Billing: Yes Source: Developed by Drs. Gopi Hawkins, Rosanna Aguilar, Krishan Singh and colleagues, with an educational marlene from [email or web address]. Thrive Questionnaire Date Thrive assessed: 07/13/23 I am a: Patient What is your living situation today?: I have a steady place to live Within the past 12 months, did the food you bought not last and you didn't have the money to get more?: Never true Within the past 12 months, did you worry whether your food would run out before you got money to buy more?: Never true Do you have trouble paying for medicines?: No Do you have trouble getting transportation to medical appointments?: No Do you have trouble paying your heating and electricity bill?: No Do you have trouble taking care of your child, family member or friend?: No Do you have trouble with day-to-day activities such as bathing, preparing meals, shopping, managing finances, etc.?: No Are you currently unemployed and looking for a job?: No Are you interested in more education?: No THRIVE Score: 0 Review of Systems Const Denies body aches, Denies fever(s), Denies headache(s) and Denies weakness Eyes Details: Goes to [facility] Denies change in vision ENT Denies dizziness, Denies headache(s), Denies nasal congestion, Denies nasal discharge and Denies sore throat Card Denies chest pain, Denies lightheadedness, Denies palpitations and Reports dyspnea on exertion Resp Reports cough, Denies excessive phlegm production, Reports dyspnea on exertion and Denies wheezing GI Denies abdominal pain, Denies change in bowel habits and Denies heartburn Denies urinary frequency, Denies dysuria and Denies urinary urgency Skin/Breast Reports unusual bruising Neuro Denies Abnormal speech present, Denies dizziness, Denies headache(s) and Denies weakness Psych Reports no additional complaints and Reports as per HPI Endo Denies polydipsia, Denies polyuria and Denies palpitations Delroy/Lymph Reports easy bruising Aller/Immun Denies seasonal rhinorrhea and Denies wheezing Physical Exam Vital Signs: Last Vital Signs Pulse 72 07/13/23 08:32 BP 118/64 07/13/23 08:32 Pulse Ox 97 07/13/23 08:32 Oxygen Delivery Method Room Air 07/13/23 08:32 BMI result Body Mass Index 18.2 Const General: comfortable and no acute distress Nutritional Appearance: average body habitus Orientation/consciousness: patient oriented x3 HEENT Head: Yes normal to inspection Ears: hearing grossly normal bilaterally General nose exam: Normal external nose present Face and sinus: Yes face symmetric Mouth: Normal oral and palatal mucosa present, oropharynx normal and moist mucous membranes Throat: Yes posterior oropharynx normal Eyes General: appearance normal, both eyes and all related structures Pupils: Equal, round and reactive pupils present Neck Neck: Yes normal visual inspection, Yes full ROM, Yes no lymphadenopathy, Yes supple and Yes no JVD Resp Effort & Inspection: able to speak in complete sentences Auscultation: diminished lung sounds Cardio Rate: regular rate Rhythm: regular rhythm Bruits: no abdominal aortic bruits GI Inspection: Yes normal to inspection Palpation (GI): No Abdominal aortic bruit present, Soft to palpation and nontender Auscultation: normal bowel sounds Skin General skin exam: dry skin and ecchymosis (On hands and forearm) Neuro General: patient oriented x3, gait normal, moves all extremities, Normal light touch and pain sensation, no focal motor deficits, CN's II-XI intact bilaterally and normal sensation to monofilament Cranial nerves: Yes Equal, round and reactive pupils present Cognition (Neuro): normal cognition Speech: No Abnormal speech present Gait exam (Neuro): Normal gait present Motor exam (neuro): 5/5 motor strength present throughout Extrem General: Yes full ROM, Yes no clubbing, cyanosis or edema and Yes normal gait Psych Appearance: grossly normal and well kempt Mental Status: mental status grossly normal Speech and movement: Normal speech and movement present Affect: normal affect Attitude: cooperative Thought process: Normal thought process present Thought content: Normal thought content present Results Reviewed Results Reviewed: Name: Yaima Crowder Age/Sex: 67/F : 1955 Unit#: [id number] Attend Dr: Kristin Miranda MD Re05/15/23 Status: DEP REF Location: [facility] Disch: SPEC : [id number] PASCUAL: 05/15/23 STATUS: COMP REQ : [id number] RECD: 05/15/23-[address]: Kristin Miranda MD COMP: 05/15/23 ENTERED: 05/15/[address]: ORDERED: Glu Fasting, AST, ALT, Lipid Panel, Vitamin D 25-OH, TSH Test Result Flag Reference FBS 101 H 60-99 mg/dL A fasting glucose from 100-125 mg/dl is considered impaired (pre-diabetes). AST (GOT) 14 5-31 U/L ALT (GPT) 10 0-31 U/L Triglyceride 60 <150 mg/dL Desirable Triglyceride: less than 150 mg/dL Borderline High Triglyceride 150-199 mg/dL High Triglyceride: 200-499 mg/dL Very High Triglyceride: greater than or equal to 5OO mg/dL Cholesterol 125 <200 mg/dL Desirable Cholesterol: less than 200 mg/dL Borderline High Cholesterol: 200-239 mg/dL High Cholesterol: greater than 239 mg/dL LDL Calculated 66 <100 mg/dL Desirable LDL: less than 100 mg/dL Near Optimal/Above Optimal LDL: 110-129 mg/dL Borderline High LDL: 130-159 mg/dL High LDL: 160-189 mg/dL Very High LDL: greater than or equal to 190 mg/dL HDL 47 >40 mg/dL Desirable HDL: greater than 40 mg/dL Note: This HDL assay may give artificially low results in patients with liver disease. Vit D 25-OH Tot 55.3 >30 ng/mL Health Based Reference Values* < 20 ng/mL Deficient 20-30 ng/mL Insufficient > 30 ng/mL Sufficient *Wiley BARTLETT. N Engl J Med. 2007;[id number]:266-280 Care must be taken in interpreting Vitamin D results from different laboratories and methodologies. Published data demonstrated that results from patients undergoing hemodialysis may show a negative bias when tested with various automated 25-OH vitamin D assays when compared to LC-MS/MS. When testing samples from patients whose predominant fo rm of Vitamin D is Vitamin D2, such as patients receiving Vitamin D2 supplementation, results that are subtherapeutic should be confirmed with another method such as LC-MS/MS. TSH 3rd Gen. 0.29 L 0.32-4.0 uIU/mL TSH 3rd Generation ([facility]) Assessment & Plan Assessment & Plan (1) Encounter for subsequent annual wellness visit (AWV) in Medicare patient: Code(s): Z00.00 - Encounter for general adult medical examination without abnormal findings Plan: Medical wellness checklist discussed with patient, reviewed and updated. Patient already completed a MOLST form, healthcare proxy form given to patient, states she wants to bring it home to complete and will bring back a copy to be placed into her medical record. Advised to get RSV vaccine and shingles vaccine, patient states that she already submitted a Cologuard test in 2021 but never received the result. Will check with [facility] for results of Cologuard test (2) Abdominal aortic aneurysm: Comment: (Question partially visualized abdominal aortic aneurysm, measuring 3.2 cm on 01/02/23 LDCT) Code(s): I71.40 - Abdominal aortic aneurysm, without rupture, unspecified Qualifiers: Abdominal aorta location: unspecified Presence of rupture: without rupture Qualified Code(s): I71.40 - Abdominal aortic aneurysm, without rupture, unspecified Plan: Ordered an ultrasound to screen for abdominal aortic aneurysm to see if any change in size. Importance of getting blood pressure, cholesterol levels under controlled and to quit smoking. (3) COPD (chronic obstructive pulmonary disease): Code(s): J44.9 - Chronic obstructive pulmonary disease, unspecified Qualifiers: COPD type: emphysema Emphysema type: unspecified Qualified Code(s): J43.9 - Emphysema, unspecified Plan: Continue with Symbicort and albuterol inhaler/nebulizer as needed strongly advised to quit smoking, referred back to see Dr. Nathan (4) Nicotine dependence, cigarettes, uncomplicated: Code(s): F17.210 - Nicotine dependence, cigarettes, uncomplicated Plan: Prescription sent for started pack of varenicline, to take as directed, and also prescribed bupropion HCL 150 mg per tablet to take once in the morning. Start cutting back on smoking, see you back in 4 weeks for follow-up (5) Acquired hypothyroidism: Onset Date: ~2004 Comment: (hx Graves s/p radioactive iodine tx in 2004 - now post-ablative hypothyroidism) Code(s): E03.9 - Hypothyroidism, unspecified Plan: Continue with current dose of levothyroxine, repeat TSH and free T4 in August 2019 (6) Osteopenia: Onset Date: ~2016 Comment: (Bone Dexa Femoral T-score: -1.6 on 01/22/17) Code(s): M85.80 - Other specified disorders of bone density and structure, unspecified site Qualifiers: Osteopenia location: multiple sites Qualified Code(s): M85.89 - Other specified disorders of bone density and structure, multiple sites Plan: Reviewed results of bone density scan from 2021 with patient, continue with taking vitamin-D 3 supplements at least 2000 units daily, adequate calcium from dietary sources and do regular weight-bearing exercise. Strongly advised to quit smoking. Repeat another bone density scan this year together with screening mammogram Orders: Orders Free T4 (Free Thyroxine) 08/07/23 E03.9 - Hypothyroidism, unspecified US abdominal aortic aneurysm Today I71.40 - Abdominal aortic aneurysm, without rupture, unspecified Thyroid Stimulating Hormone 08/06/24 E03.9 - Hypothyroidism, unspecified MM tomosynthesis screening BI Today M85.80 - Other specified disorders of bone density and structure, unspecified site, Z12.31 - Encounter for screening mammogram for malignant neoplasm of breast, Z78.0 - Asymptomatic menopausal state XR DEXA axial skeleton Today M85.80 - Other specified disorders of bone density and structure, unspecified site, Z12.31 - Encounter for screening mammogram for malignant neoplasm of breast, Z78.0 - Asymptomatic menopausal state Referrals Pulmonary Medicine Referral J44.9 - Chronic obstructive pulmonary disease, unspecified Medications: New varenicline (Chantix Starting Month Box) PO PER PKG DIR 53 ea 0RF F17.210 - Nicotine dependence, cigarettes, uncomplicated, J44.9 - Chronic obstructive pulmonary disease, unspecified bupropion HCl 150 mg PO QAM 30 tabs 1RF Quality Reporting (2019) Depression/Bipolar (159/160/161/177) PHQ-9: Total score: 3 Coding Level of Care Code Medicare Subsequent (G0439) Est Pt Level 4 (06439) Diagnoses Encounter for subsequent annual wellness visit (AWV) in Medicare patient Z00.00 Abdominal aortic aneurysm (AAA) without rupture, unspecified part I71.40 Abdominal aorta location: unspecified Presence of rupture: without rupture Pulmonary emphysema, unspecified emphysema type J43.9 COPD type: emphysema Emphysema type: unspecified Nicotine dependence, cigarettes, uncomplicated F17.210 Acquired hypothyroidism E03.9 Osteopenia of multiple sites M85.89 Osteopenia location: multiple sites CPT Codes Advance Care Planning - Advance Care Planning discussion: On file, no changes ([id number]) Advance Care Planning - Time spent: 1-15 minutes, on File ([id number]) Advance Care Planning Advance Care Planning discussion: On file, no changes Date of discussion: 07/13/23 Who was present: Patient Forms completed: [facility] Time spent: 1-15 minutes, on File Actual minutes spent: 15
[2023-07-13 08:32] VITALS: BP 118/64; PULSE 72; O2SAT 97; BMI 18.2
== END 2023-07-13 09:24 | disposition home or self-care (01) ==
PROVIDERS: PCP Internal Medicine; Visit Provider Internal Medicine
DX: Z00.00 Encounter for general adult medical examination without abnormal findings (principal); I71.40 Abdominal aortic aneurysm, without rupture, unspecified; J43.9 Emphysema, unspecified; F17.210 Nicotine dependence, cigarettes, uncomplicated; E03.9 Hypothyroidism, unspecified; M85.89 Other specified disorders of bone density and structure, multiple sites
CPT/HCPCS: 1123F; 99214; G0439

== ENCOUNTER 2023-07-20 08:25 | Outpatient (REF) | payer MEDICARE, SELFPAY ==
--- NOTE | ~2023-07-20 | US_ITS ---
EXAMINATION: US RETROPERITONEAL LIMITED (AORTA) CLINICAL INFORMATION: Abdominal aortic aneurysm. History of smoking.. COMPARISON: Chest CT dated 01/02/2023. TECHNIQUE: Collazo-scale, color Doppler and spectral Doppler evaluation of the abdominal aorta. FINDINGS: The aorta is normal. The measurements of the aorta in maximum AP and transverse dimensions respectively are as follows: Proximal: 3.2 x 2.9 cm. Mid: 6.0 x 5.4 cm. Fusiform. Contains mural thrombus. Distal: 2.8 x 2.6 cm. PSV: 86 cm/s. The measurements of the common iliac arteries in maximum AP and TRV dimensions are as follows: Right Common Iliac Artery: 1.4 x 1.4 cm. Left Common Iliac Artery: 1.6 x 1.5 cm. US/US abdominal aortic aneurysm IMPRESSION: 6.0 x 5.4 cm, fusiform mid infrarenal abdominal aortic aneurysm containing mural thrombus. Recommend vascular surgical consultation.
== END 2023-07-20 08:26 | disposition home or self-care (01) ==
LOC: HO.HMGCX 08:25
PROVIDERS: PCP Internal Medicine; Visit Provider Internal Medicine
DX: I71.40 Abdominal aortic aneurysm, without rupture, unspecified (principal)
CPT/HCPCS: 76706

== ENCOUNTER 2023-07-22 08:17 | Outpatient (AMB) | payer MEDICARE, SELFPAY ==
[2023-07-22 08:36] VITALS: BP 120/78; PULSE 73; TEMP 36.4; O2SAT 98; BMI 17.9
--- NOTE | 2023-07-22 08:36 | AM.OFFWIN_ITS ---
Intake Vital Signs 07/22/23 08:36 Height 5 ft 7 in Weight 114 lb BMI 17.9 BP 120/78 Blood Pressure Location Lt brachial Position Sitting Pulse 73 Pulse Source Pulse Oximeter Temp 97.6 F Temp Source Oral Pulse Oximetry (%) 98 Oxygen Delivery Method Room Air Intake Visit Reasons: EP RT side pain No Cell in lobby Intake Note: pt is here for c/o right side pain Patient Tobacco Use Status: Current everyday Tobacco user Allergies penicillin V Allergy (Unknown, Verified 07/22/23 08:37) hives Bee stings Allergy (Unknown, Uncoded 07/13/23 08:38) hives Medication List - Last Reconciled 07/22/23 by Sirisha Matias MD albuterol sulfate 90 mcg/actuation (ProAir HFA) 2 puffs inhalation Q6H PRN budesonide-formoterol 160-4.5 mcg/actuation (Symbicort) 2 puffs inhalation Q12H bupropion HCl 150 mg PO QAM cholecalciferol (vitamin D3) 50 mcg PO DAILY levothyroxine 100 mcg PO DAILY 90 days varenicline (Chantix Starting Month Box) PO PER PKG DIR Do you need a note to return to daycare/school/sports/work: No HPI EP RT side pain No Cell in lobby HPI Details Patient is 67-year-old female came in today to be evaluated for right upper quadrant pain abdomen Which comes and goes, she has no nausea vomiting Patient is complaining of feeling constipated, she says that if she takes laxative then she started having diarrhea so she is struggling with that Also tells me that the bottle says that she can not take it more than 7 days. She has not had colonoscopy, I tried to convince her that we should have the procedure done. She said that she will think about it Meanwhile she is to balance the laxative so she can move her bowel daily, she can take MiraLax, Senokot, Colace, Dulcolax, whichever works for her or in combination Also need to drink more water I also noticed that her TSH level was low, patient says that she is taking 112 mcg of levothyroxine for years, however she is willing to try the lower dose I have sent 100 mcg Patient is to discuss it further with her primary care. Urinalysis does not show any signs of infection since her right upper quadrant pain sometimes radiates to the back. I have ordered abdominal ultrasound for the patient to rule out gallbladder stones She had labs done in May her LFTs were within normal limit. [facility] Medical History Nicotine dependence, cigarettes, uncomplicated Osteopenia (~2016) Colon cancer screening Dog bite of finger Herpes zoster Colonoscopy refused Urinary, incontinence, stress female COPD (chronic obstructive pulmonary disease) Graves disease Acquired hypothyroidism (~2004) Surgical History No pertinent past surgical history Family History Father Diabetes mellitus Mother Diabetes mellitus Brother Bone cancer Daughter No problems noted. Daughter No problems noted. Social History Alcohol intake: never Patient Tobacco Use Status: Current everyday Tobacco user Review of Systems Const Denies chills and Denies fever(s) ENT Denies epistaxis and Denies nasal discharge Card Denies chest pain Resp Denies chest congestion, Denies cough and Denies hemoptysis GI Denies nausea Skin/Breast Denies rash Neuro Reports no additional complaints Psych Reports no additional complaints Endo Reports no additional complaints Physical Exam Vital Signs: Last Vital Signs Temp 97.6 F 07/22/23 08:36 Pulse 73 07/22/23 08:36 BP 120/78 07/22/23 08:36 Pulse Ox 98 07/22/23 08:36 Oxygen Delivery Method Room Air 07/22/23 08:36 BMI result Body Mass Index 17.9 Const General: cooperative, comfortable and no acute distress Orientation/consciousness: patient oriented x3 HEENT Head: Yes normocephalic Eyes General: appearance normal, both eyes and all related structures Neck Other: Supple Neck: Yes supple Resp Effort & Inspection: normal respiratory effort, no cough and no stridor Cardio Rhythm: regular rhythm Heart sounds: S1 normal heart sound present and S2 normal heart sound present GI Other: No pain with palpation today, bowel sounds positive Skin General skin exam: turgor normal Neuro Other: Motor sensory intact General: patient oriented x3, tone normal and moves all extremities Extrem Other: No lower extremity swelling. Right lower extremity: no edema Left lower extremity: no edema Psych Other: Normal effect, speech clear Results AMB Urinalysis, Automated UA Leukoctes 0 Ludmila/uL Last Edit by Freedom Marquis CMA on 07/22/23 08:54 UA Nitrite Negative Last Edit by Freedom aMrquis CMA on 07/22/23 08:54 UA Urobilinogen 0.2 mg/dL Last Edit by Freedom Marquis CMA on 07/22/23 08 :54 UA Protein 0 mg/dL Last Edit by Freedom Marquis CMA on 07/22/23 08:54 UA pH 6.5 Last Edit by Freedom Marquis CMA on 07/22/23 08:54 UA Blood 0 Kenneth/uL Last Edit by Freedom Marquis CMA on 07/22/23 08:54 UA Specific [place] 1.015 Last Edit by Freedom Marquis CMA on 07/22/23 08:54 UA Ketone Negative Last Edit by Freedom Marquis CMA on 07/22/23 08:54 UA Bilirubin 0 mg/dL Last Edit by Freedom Marquis CMA on 07/22/23 08:54 UA Glucose 0 mg/dL Last Edit by Freedom Marquis CMA on 07/22/23 08:54 Results Reviewed Results Reviewed: Laboratory Last Values Urine pH (Auto) 6.5 07/22/23 08:46 Specific [place] (Auto) 1.015 07/22/23 08:46 Urine Protein (Auto) 0 mg/dL 07/22/23 08:46 Glucose (UA)(Auto) 0 mg/dL 07/22/23 08:46 Urine Ketones (Auto) Negative 07/22/23 08:46 Urine Blood (Auto) 0 Kenneth/uL 07/22/23 08:46 Urine Nitrite (Auto) Negative 07/22/23 08:46 Urine Bilirubin (Auto) 0 mg/dL 07/22/23 08:46 Urine Urobilinogen (Auto) 0.2 mg/dL 07/22/23 08:46 Leukocyte Esterase (Auto) 0 Ludmila/uL 07/22/23 08:46 Assessment & Plan Assessment & Plan (1) RUQ abdominal pain: Code(s): R10.11 - Right upper quadrant pain (2) Constipation by delayed colonic transit: Code(s): K59.01 - Slow transit constipation (3) Other specified hypothyroidism: Code(s): E03.8 - Other specified hypothyroidism (4) Colonoscopy refused: Code(s): Z53.20 - Procedure and treatment not carried out because of patient's decision for unspecified reasons Plan Patient is 67-year-old female came in today to be evaluated for right upper quadrant pain abdomen Which comes and goes, she has no nausea vomiting Patient is complaining of feeling constipated, she says that if she takes laxati ve then she started having diarrhea so she is struggling with that Also tells me that the bottle says that she can not take it more than 7 days. She has not had colonoscopy, I tried to convince her that we should have the procedure done. She said that she will think about it Meanwhile she is to balance the laxative so she can move her bowel daily, she can take MiraLax, Senokot, Colace, Dulcolax, whichever works for her or in combination Also need to drink more water I also noticed that her TSH level was low, patient says that she is taking 112 mcg of levothyroxine for years, however she is willing to try the lower dose I have sent 100 mcg Patient is to discuss it further with her primary care. Urinalysis does not show any signs of infection since her right upper quadrant pain sometimes radiates to the back. I have ordered abdominal ultrasound for the patient to rule out gallbladder stones She had labs done in May her LFTs were within normal limit. Orders: Orders AMB Urinalysis Automated Today Z13.9 - Encounter for screening, unspecified Beau Dempsey MD US abdomen complete Today R10.11 - Right upper quadrant pain Sirisha Matias MD Medications: Changed From levothyroxine 112 mcg PO DAILY 90 tabs 0RF To levothyroxine 100 mcg PO DAILY 90 days 90 tabs 0RF Sirisha Matias MD Coding Level of Care Code Est Pt Level 4 (31502) Diagnoses RUQ abdominal pain R10.11 Constipation by delayed colonic transit K59.01 Other specified hypothyroidism E03.8 Colonoscopy refused Z53.20
== END 2023-07-22 09:48 | disposition home or self-care (01) ==
PROVIDERS: PCP Internal Medicine; Visit Provider Internal Medicine
DX: R10.11 Right upper quadrant pain (principal); K59.01 Slow transit constipation; E03.8 Other specified hypothyroidism; Z53.20 Procedure and treatment not carried out because of patient's decision for unspecified reasons
CPT/HCPCS: 81003; 99214

== ENCOUNTER 2023-08-20 08:40 | Outpatient (REF) | payer MEDICARE, SELFPAY ==
[2023-08-20 10:04] LABS: Blood Urea Nitrogen 8 mg/dL (9-16); Estimated Glomerular Filt Rate > 60
[2023-08-20 10:26] LABS: Thyroid Stimulating Hormone 0.97 uIU/mL (0.32-4.0)
== END 2023-08-20 08:41 | disposition home or self-care (01) ==
LOC: HO.LAB 08:40
PROVIDERS: PCP Internal Medicine; Visit Provider Surgery Vascular Surgery
DX: I71.40 Abdominal aortic aneurysm, without rupture, unspecified (principal); E03.9 Hypothyroidism, unspecified
CPT/HCPCS: 36415; 82565; 84439; 84443; 84520

== ENCOUNTER 2023-08-21 09:36 | Outpatient (REF) | payer MEDICARE, SELFPAY ==
--- NOTE | ~2023-08-21 | CT_ITS ---
EXAMINATION: CT ANGIOGRAM ABDOMEN AND PELVIS CLINICAL INFORMATION: Abdominal aortic aneurysm without rupture. COMPARISON: Chest CT from 01/02/2023. Abdominal aorta ultrasound from 07/20/2023. TECHNIQUE: Multiple axial images were obtained through the abdomen and pelvis following the administration of 80 mL of Omnipaque 350 intravenous contrast. Images were acquired in the arterial phase, and standard multiplanar reformatted images and maximum intensity projection images were generated at the sterile processing technologist workstation. Note that no image postprocessing was performed on any independent workstations. There are no three-dimensional images. This CT examination was performed using dose optimization techniques as appropriate, variously including the following: *Automated exposure control *Adjustment of mA and/or kV according to patient size (this includes techniques or standardized protocols for targeted exams where dose is matched to indication/reason for exam; i.e. extremities or head) *Use of iterative reconstruction technique DLP: 252 mGy-cm FINDINGS: LUNG BASES: No pulmonary consolidation or pleural effusion. Centrilobular and paraseptal emphysema within the visualized bases. HEPATOBILIARY: Liver has normal size, shape, and attenuation. Gallbladder has a normal appearance. No dilated bile ducts. PANCREAS: No edema, pancreatic ductal dilatation or mass. SPLEEN: Unremarkable. ADRENAL GLANDS: Unremarkable. KIDNEYS AND URETERS: Kidneys are normal in size and enhance symmetrically. No stones, hydronephrosis or perinephric edema. Small simple cyst of the lower pole the left kidney. No renal imaging follow-up recommended. BLADDER: Normal. BOWEL AND PERITONEUM: Stomach and small bowel are unremarkable. No dilated loops. The appendix is normal. Multiple diverticula of the descending and sigmoid colon. There is no evidence of bowel wall hyperenhancement or mesenteric fat stranding. No abdominal free fluid or free air. ABDOMINAL WALL: Unremarkable. VASCULATURE: Atherosclerotic disease of a tortuous abdominal aorta. Because of the aorta tortuosity, measurements of aorta size acquired on axial images are less accurate than those obtained on coronal and sagittal reformatted images. Proximal abdominal aorta is 2.5 cm transverse and 2.5 cm AP. At the level of the renal arteries, the abdominal aorta is 2.6 cm transverse and 2.6 cm AP. Infrarenal abdominal aorta aneurysm begins approximately 3 cm below the level of the renal arteries. There is mild amount of inner wall thrombus of the aneurysm that measures up to 6 cm transverse and 5.5 cm AP. No aortic dissection. The aorta returns to normal caliber just above the bifurcation. The celiac artery and its branches are widely patent. Superior mesenteric artery is normal. There appears to be focal moderate stenosis at the origin of the inferior mesenteric artery from the aorta. There is no significant stenosis of renal arteries. Although there is extensive atherosclerotic plaque of iliac arteries, no evidence of any flow-limiting stenosis or vessel occlusion. The right and left common iliac arteries measure up to 1.4 cm and 1.8 cm maximum transverse diameter. The left internal iliac artery measures up to 1.3 cm and right internal iliac 0.9 cm transverse diameter. The external iliac, common femoral and superficial femoral arteries are normal in caliber. LYMPH NODES: No pathologic sized lymph nodes in the abdomen or pelvis. No inguinal lymphadenopathy. PELVIC VISCERA: No uterine or adnexal mass. No pelvic free fluid. MUSCULOSKELETAL: No acute or suspicious osseous abnormality. Moderate multilevel discovertebral degenerative changes of the lumbar spine. CT/CT angio abdomen pelvis IMPRESSION: * The fusiform infrarenal abdominal aorta aneurysm measures up to 6 cm maximum transverse diameter. * Colonic diverticulosis without diverticulitis.
[2023-08-21] MEDS: iohexoL 350 MG/ML 100 ML INFUS..BTL IV (11:08)
== END 2023-08-21 09:37 | disposition home or self-care (01) ==
LOC: HO.CT 09:36
PROVIDERS: PCP Internal Medicine; Visit Provider Surgery Vascular Surgery
DX: I71.40 Abdominal aortic aneurysm, without rupture, unspecified (principal)
CPT/HCPCS: 74174; Q9967

== ENCOUNTER 2023-08-25 12:52 | Outpatient (AMB) | payer MEDICARE, SELFPAY ==
--- NOTE | 2023-08-25 12:58 | A.OFFVIS_ITS ---
Intake Vital Signs 08/25/23 13:01 Height 5 ft 7 in Weight 116 lb BMI 18.2 Intake Visit Reasons: [employer]/PCP referral 6.0 AAA Intake Note: [employer] stat referral for AAA 6.0 cm. Had CTA Abd/pelvis 08/21/23 and Abd US for Abd pain 07/22/23 for Right flank pain at walk in clinic. AAA was partially seen on CT Lung last December 2022 Accompanied by: Self / Same As Patient Allergies penicillin V Allergy (Unknown, Verified 08/25/23 13:05) hives Bee stings Allergy (Unknown, Uncoded 08/25/23 13:05) hives HPI [employer]/PCP referral 6.0 AAA HPI Details Very pleasant 67-year-old female presents for evaluation for abdominal aortic aneurysm. This all began as routine surveillance workup. She has been asymptomatic from this. She denies any abdominal pain. She had an ultrasound which demonstrated an increase in size. Upon workup it was discovered that she had a [address] scan. She has a history of smoking and reports that it is less than a pack per day. She does have a prior history of COPD and occasionally uses an inhaler. She is able to walk several blocks and climb a flight of stairs. She now presents for vascular evaluation. COUNTS INCLUDE 234 BEDS AT THE [facility] Medical History Nicotine dependence, cigarettes, uncomplicated Osteopenia (~2016) Colon cancer screening Dog bite of finger Herpes zoster Colonoscopy refused Urinary, incontinence, stress female COPD (chronic obstructive pulmonary disease) Graves disease Acquired hypothyroidism (~2004) Surgical History No pertinent past surgical history Family History Father Diabetes mellitus Mother Diabetes mellitus Brother Bone cancer Daughter No problems noted. Daughter No problems noted. Social History Alcohol intake: never Patient Tobacco Use Status: Current everyday Tobacco user Review of Systems Const All systems reviewed & are unremarkable except as noted in HPI and below Reports no additional complaints ENT Reports Normal hearing present Card Denies chest pain, Denies chest pain at rest, Denies chest pain with activity and Denies pedal edema Resp Denies cough GI Denies abdominal pain Musc Denies abnormal gait, Denies muscle cramps and Denies radiating pain into limb Skin/Breast Denies skin ulcer and Denies wounds Neuro Reports Normal hearing present and Denies abnormal gait Psych Reports no additional complaints Physical Exam Vital Signs: BMI result Body Mass Index 18.2 Const General: cooperative, healthy appearing and comfortable Orientation/consciousness: oriented to person, oriented to place and oriented to time HEENT Head: Yes normal to inspection Neck Neck: Yes normal visual inspection Carotids: no bruits Chest Chest palpation & inspection: normal inspection of the chest Resp Effort & Inspection: normal respiratory effort and able to speak in complete sentences Auscultation: clear to auscultation bilaterally, no crackles, no rales, no rhonchi and no wheezes Cardio Rate: regular rate Rhythm: regular rhythm Heart sounds: S1 normal heart sound present and S2 normal heart sound present Bruits: no carotid bruits Peripheral pulses: Peripheral pulses 2+ throughout GI Inspection: Yes normal to inspection Skin Wounds: no wounds Hair: normal Neuro General: oriented to person, oriented to place and oriented to time Cranial nerves: Yes CN's II-XII intact bilaterally and Yes Normal hearing present Cognition (Neuro): normal cognition Motor exam (neuro): 5/5 motor strength present throughout Extrem Other: venous exam: No significant superficial varicosities or spider telangiectasias, minimal edema General: No clubbing, No cyanosis and No edema Psych Appearance: grossly normal Mental Status: mental status grossly normal Speech and movement: Normal speech and movement present Results Reviewed Results Reviewed: CT angiogram dated 08/21/2023 demonstrates 6 cm fusiform mid infrarenal abdominal aortic aneurysm. In true AP diameter is about 5.5 cm. Written report and images were reviewed. Assessment & Plan Assessment & Plan (1) AAA (abdominal aortic aneurysm) without rupture: Code(s): I71.40 - Abdominal aortic aneurysm, without rupture, unspecified Qualifiers: Abdominal aorta location: infrarenal aorta Qualified Code(s): I71.43 - Infrarenal abdominal aortic aneurysm, without rupture Plan: In short patient has radiologic evidence of a AAA on on CT of 6 cm. We have discussed the pathophysiology of aortic aneurysms and the risk of ruptures. We have discussed rupture risk based on size. The patient will require endovascular abdominal aortic aneurysm repair possible open repair. Risks benefits complications including but not limited to bleeding infection stroke and were discussed in detail with the patient. They are in agreement and would like to proceed. The patient will require cardiac risk stratification. In addition she does have a history of COPD and will require pulmonary risk stratification as well. Thank you for allowing us to assist in her care. If there are any questions or concerns please do not hesitate to contact us. Orders: Orders Creatinine 08/20/23 I71.40 - Abdominal aortic aneurysm, without rupture, unspecified CT angio abdomen pelvis 08/21/23 I71.40 - Abdominal aortic aneurysm, without rupture, unspecified Blood Urea Nitrogen 08/20/23 I71.40 - Abdominal aortic aneurysm, without rupture, unspecified Coding Level of Care Code New Pt Level 4 (70016) Diagnoses Infrarenal abdominal aortic aneurysm (AAA) without rupture I71.43 Abdominal aorta location: infrarenal aorta
[2023-08-25 13:01] VITALS: BMI 18.2
== END 2023-08-25 13:38 | disposition home or self-care (01) ==
PROVIDERS: PCP Internal Medicine; Visit Provider Surgery Vascular Surgery
DX: I71.43 Infrarenal abdominal aortic aneurysm, without rupture (principal)
CPT/HCPCS: 99204

== ENCOUNTER → 2023-08-25 12:52 | Outpatient (BNVA) | payer MEDICARE, SELFPAY | PROVIDERS: PCP Internal Medicine; Visit Provider Surgery Vascular Surgery | DX: I71.43 Infrarenal abdominal aortic aneurysm, without rupture (principal) | CPT/HCPCS: 99202 ==

== ENCOUNTER 2023-08-28 12:49 | Outpatient (AMB) | payer MEDICARE, SELFPAY ==
--- NOTE | 2023-08-28 12:20 | MHC.OFFVIS ---
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: Relay Mechanic offered & declined Accompanied by: Self / Same As Patient Allergies penicillin V Allergy (Unknown, Verified 08/28/23 13:26) hives Bee stings Allergy (Unknown, Uncoded 08/28/23 13:26) hives Medication List - Last Reconciled 08/28/23 by Tiana Posey LPN albuterol sulfate 90 mcg/actuation (ProAir HFA) 2 puffs inhalation Q6H PRN bupropion HCl 150 mg PO QAM cholecalciferol (vitamin D3) 50 mcg PO DAILY levothyroxine 100 mcg PO DAILY 90 days Symbicort 160-4.5 mcg/actuation (budesonide-formoterol) 2 puffs inhalation Q12H 3 months NS varenicline (Chantix Starting Month Box) PO PER PKG DIR HPI Pre Op - AAA Repair - 09/13 HPI Details Yaima is a pleasant 67 year old female, current 1.5 ppd smoker with 80+ pack year history with underlying aortic abdominal aneurysm, COPD, and Graves disease. She was referred by Dr. Day for perioperative pulmonary evaluation for upcoming AAA repair on 09/14/23. Recent imaging revealed AAA measuring 6 cm. She last had a PFT in 2008 which revealed severe COPD with post FEV1 63 and DLCO 55. At baseline, she has been moderately controlled on symbicort and albuterol PRN. She reports dyspnea with moderate exertion, occasional chest tightness, wheezing and productive cough with clear sputum. She last reports COPD exacerbation secondary to URI at the end of June where she was given azithromycin and prednisone x 5 days. She reports resolution of symptoms after treatment. She recently received Chantix and is hopeful that she can quit smoking. She reports mother with UIP related to occupational exposures otherwise, denies any pertinent family history. She denies any history of asthma or allergies. She denies any occupational exposures. She is apart of the lung cancer screening program with noted nodules <4mm, last 12/28. [facility] Medical History Nicotine dependence, cigarettes, uncomplicated Osteopenia (~2016) Colon cancer screening Dog bite of finger Herpes zoster Colonoscopy refused Urinary, incontinence, stress female COPD (chronic obstructive pulmonary disease) Graves disease Acquired hypothyroidism (~2004) Surgical History No pertinent past surgical history Family History Father Diabetes mellitus Mother Diabetes mellitus Brother Bone cancer Daughter No problems noted. Daughter No problems noted. Social History (Updated 08/28/23 @ 13:28 by Tiana Posey LPN) Alcohol intake: never Patient Tobacco Use Status: Current everyday Tobacco user Tobacco use type: Cigarette Cigarette Packs Per Day: 1.5 Years Smoked: 55 Smoked in Last 30 Days: Yes Review of Systems Const Denies chills, Denies excessive sweating, Denies fever(s), Denies headache(s) and Denies night sweats Eyes Denies dry eyes, Denies irritation and Denies itchy eyes ENT Reports Normal hearing present, Denies headache(s), Denies nasal congestion, Denies nasal discharge, Denies post nasal drip and Denies sore throat Card Denies chest pain, Denies chest pain at rest, Denies chest pain with activity, Denies claudication, Denies leg edema, Denies orthopnea and Denies paroxysmal nocturnal dyspnea Resp Denies chest congestion, Denies excessive phlegm production, Denies pain on inspiration, Denies pain with cough and Denies stridor Musc Denies myalgias Neuro Reports Normal hearing present and Denies headache(s) Endo Denies excessive sweating Delroy/Lymph Denies lymphadenopathy Aller/Immun Denies itchy eyes and Denies seasonal rhinorrhea Physical Exam Vital Signs: Last Vital Signs Pulse 73 08/28/23 13:22 BP 126/64 08/28/23 13:22 Pulse Ox 96 08/28/23 13:22 Oxygen Delivery Method Room Air 08/28/23 13:22 BMI result Body Mass Index 18.3 Const General: cooperative, healthy appearing, comfortable, no acute distress, well developed and alert Orientation/consciousness: patient oriented x3 Limitations: no limitations HEENT Head: Yes normal to inspection, Yes normocephalic and Yes atraumatic Ears: hearing grossly normal bilaterally and external ears normal Eyes General: appearance normal, both eyes and all related structures Eyelids: Yes eyelids normal Sclerae: sclerae normal EOM: EOMs intact bilaterally Neck Neck: Yes normal visual inspection and Yes no lymphadenopathy Lymphatic: no lymphadenopathy noted Chest Chest palpation & inspection: normal inspection of the chest Resp Effort & Inspection: normal respiratory effort, able to speak in complete sentences, no audible wheezes, no cough, no stridor, not tachypneic, no tripod positioning and no use of accessory muscles Cardio Jugular venous distension: no JVD Rate: regular rate Rhythm: regular rhythm Skin Other: warm, dry General skin exam: no rashes or lesions noted Neuro General: patient oriented x3 Cranial nerves: Yes Normal hearing present Cognition (Neuro): normal cognition Gait exam (Neuro): Normal gait present Extrem General: Yes normal to inspection, Yes capillary refill normal, Yes no clubbing, cyanosis or edema and Yes no pedal edema Psych Appearance: grossly normal and well kempt Speech and movement: Normal speech and movement present and Clear speech present Affect: normal affect Attitude: cooperative Thought process: Normal thought process present Thought content: Normal thought content present Insight: Good insight present (Psych) Judgement: Good judgement present (Psych) Office Procedures 6 Minute Walk Time:: 13:53 SPO2 % at rest: 98 Pulse at rest: 68 SPO2 % during excercise: 95 Pulse during excercise: 84 SPO2 % after excercise: 97 Pulse after excercise: 72 Distance in yards walked: 1,500 Waldemar Score: 4 Performance Observations:: Patient walked unassisted on level ground at a moderate pace. Patient maintained O2 saturation of 95% or greater for the entire walk with pulse of 84 or less. Patient tolerated walking without any shortness of breath. She reports she gets short of breath with stair or walking on an incline. No supplemental O2 needed. [address] - 6 Minute Walk Assessment & Plan Assessment & Plan (1) Encounter for preoperative pulmonary examination: Code(s): Z01.811 - Encounter for preprocedural respiratory examination (2) COPD (chronic obstructive pulmonary disease): Code(s): J44.9 - Chronic obstructive pulmonary disease, unspecified Qualifiers: COPD type: emphysema Emphysema type: unspecified Qualified Code(s): J43.9 - Emphysema, unspecified (3) Nicotine dependence, cigarettes, uncomplicated: Code(s): F17.210 - Nicotine dependence, cigarettes, uncomplicated (4) Abdominal aortic aneurysm: Code(s): I71.40 - Abdominal aortic aneurysm, without rupture, unspecified Qualifiers: Abdominal aorta location: unspecified Presence of rupture: without rupture Qualified Code(s): I71.40 - Abdominal aortic aneurysm, without rupture, unspecified Plan Yaima presents for preoperative pulmonary evaluation for upcoming AAA repair with Dr. Day on 09/14/23. On exam, no wheezing or rhonchi appreciated, with diminished lung sounds throughout. Last COPD exacerbation two months ago, with resolution of symptoms after prednisone and antibiotics. Patient reports moderate control with symbicort however continues to report dyspnea on exertion, wheezing, cough and chest tightness. Will trial trelegy. 6MWT performed and patient does not require supplemental oxygen. At this time, patient would be considered intermediate risk for pulmonary complications, according to ARISCAT risk index. Consider bronchodilators in the preoperative period. All questions were answered and patient is in agreement of plan. Will follow up in three months or sooner if needed. Orders: Orders AMB 6 minute walk Today I71.40 - Abdominal aortic aneurysm, without rupture, unspecified, J44.9 - Chronic obstructive pulmonary disease, unspecified Medications: New mctqkaptbvp-folorvmkx-fejrjwhj 200-62.5-25 mcg (Trelegy Ellipta) 1 inh inhalation DAILY 60 ea 3RF Coding Level of Care Code New Pt Level 4 (63654) Diagnoses Encounter for preoperative pulmonary examination Z01.811 Pulmonary emphysema, unspecified emphysema type J43.9 COPD type: emphysema Emphysema type: unspecified Nicotine dependence, cigarettes, uncomplicated F17.210 Abdominal aortic aneurysm (AAA) without rupture, unspecified part I71.40 Abdominal aorta location: unspecified Presence of rupture: without rupture CPT Codes Coding ([id number])
[2023-08-28 13:22] VITALS: BP 126/64; PULSE 73; O2SAT 96; BMI 18.3
--- NOTE | 2023-08-28 14:05 | MHC.OFFVIS ---
Intake Vital Signs 08/28/23 13:22 08/28/23 14:10 Height 5 ft 7 in Weight 116 lb 13.52 oz BMI 18.3 18.3 BP 126/64 Blood Pressure Location Lt brachial Position Standing Pulse 73 Pulse Source Pulse Oximeter Pulse Oximetry (%) 96 Oxygen Delivery Method Room Air Intake Visit Reasons: Pre Op - AAA Repair - Barb - 09/13 Allergies penicillin V Allergy (Unknown, Verified 08/28/23 13:26) hives Bee stings Allergy (Unknown, Uncoded 08/28/23 13:26) hives Medication List - Last Reconciled 08/28/23 by Tiana Posey LPN albuterol sulfate 90 mcg/actuation (ProAir HFA) 2 puffs inhalation Q6H PRN bupropion HCl 150 mg PO QAM cholecalciferol (vitamin D3) 50 mcg PO DAILY levothyroxine 100 mcg PO DAILY 90 days Symbicort 160-4.5 mcg/actuation (budesonide-formoterol) 2 puffs inhalation Q12H 3 months NS varenicline (Chantix Starting Month Box) PO PER PKG DIR PFSH Medical History Nicotine dependence, cigarettes, uncomplicated Osteopenia (~2016) Colon cancer screening Dog bite of finger Herpes zoster Colonoscopy refused Urinary, incontinence, stress female COPD (chronic obstructive pulmonary disease) Graves disease Acquired hypothyroidism (~2004) Surgical History No pertinent past surgical history Family History Father Diabetes mellitus Mother Diabetes mellitus Brother Bone cancer Daughter No problems noted. Daughter No problems noted. Social History (Updated 08/28/23 @ 13:28 by Tiana Posey LPN) Alcohol intake: never Patient Tobacco Use Status: Current everyday Tobacco user Tobacco use type: Cigarette Cigarette Packs Per Day: 1.5 Years Smoked: 55 Smoked in Last 30 Days: Yes Physical Exam Vital Signs: Last Vital Signs Pulse 73 08/28/23 13:22 BP 126/64 08/28/23 13:22 Pulse Ox 96 08/28/23 13:22 Oxygen Delivery Method Room Air 08/28/23 13:22 BMI result Body Mass Index 18.3 Office Procedures 6 Minute Walk Time:: 13:53 SPO2 % at rest: 98 Pulse at rest: 68 SPO2 % during excercise: 95 Pulse during excercise: 84 SPO2 % after excercise: 97 Pulse after excercise: 72 Distance in yards walked: 1,500 Waldemar Score: 4 Performance Observations:: Patient walked unassisted on level ground at a moderate pace. Patient maintained O2 saturation of 95% or greater for the entire walk with pulse of 84 or less. Patient tolerated walking without any shortness of breath. She reports she gets short of breath with stair or walking on an incline. No supplemental O2 needed. 36803 - 6 Minute Walk Assessment & Plan Assessment & Plan (1) Encounter for preoperative pulmonary examination: Code(s): Z01.811 - Encounter for preprocedural respiratory examination (2) COPD (chronic obstructive pulmonary disease): Code(s): J44.9 - Chronic obstructive pulmonary disease, unspecified Qualifiers: COPD type: emphysema Emphysema type: unspecified Qualified Code(s): J43.9 - Emphysema, unspecified (3) Nicotine dependence, cigarettes, uncomplicated: Code(s): F17.210 - Nicotine dependence, cigarettes, uncomplicated (4) Abdominal aortic aneurysm: Code(s): I71.40 - Abdominal aortic aneurysm, without rupture, unspecified Qualifiers: Abdominal aorta location: unspecified Presence of rupture: without rupture Qualified Code(s): I71.40 - Abdominal aortic aneurysm, without rupture, unspecified Plan Yaima presents for preoperative pulmonary evaluation for upcoming AAA repair with Dr. Day on 09/14/23. On exam, no wheezing or rhonchi appreciated, with diminished lung sounds throughout. Last COPD exacerbation two months ago, with resolution of symptoms after prednisone and antibiotics. Patient reports moderate control with symbicort however continues to report dyspnea on exertion, wheezing, cough and chest tightness. Will trial trelegy. 6MWT performed and patient does not require supplemental oxygen. At this time, patient would be considered intermediate risk for pulmonary complications, according to ARISCAT risk index. Consider bronchodilators in the preoperative period. All questions were answered and patient is in agreement of plan. Will follow up in three months or sooner if needed. Orders: Orders AMB 6 minute walk Today I71.40 - Abdominal aortic aneurysm, without rupture, unspecified, J44.9 - Chronic obstructive pulmonary disease, unspecified Medications: New ejoncwemrwv-okxpfwjxk-wkjedkvv 200-62.5-25 mcg (Trelegy Ellipta) 1 inh inhalation DAILY 60 ea 3RF Coding Diagnoses Encounter for preoperative pulmonary examination Z01.811 Pulmonary emphysema, unspecified emphysema type J43.9 COPD type: emphysema Emphysema type: unspecified Nicotine dependence, cigarettes, uncomplicated F17.210 Abdominal aortic aneurysm (AAA) without rupture, unspecified part I71.40 Abdominal aorta location: unspecified Presence of rupture: without rupture CPT Codes Coding ([id number])
[2023-08-28 14:10] VITALS: PULSE 68; O2SAT 98
== END 2023-08-28 14:22 | disposition home or self-care (01) ==
PROVIDERS: PCP Internal Medicine; Visit Provider Nurse Practitioner Family
DX: Z01.811 Encounter for preprocedural respiratory examination (principal); J43.9 Emphysema, unspecified; F17.210 Nicotine dependence, cigarettes, uncomplicated; I71.40 Abdominal aortic aneurysm, without rupture, unspecified
CPT/HCPCS: 94618; 99204

== ENCOUNTER → 2023-08-28 12:49 | Outpatient (BNVA) | payer MEDICARE, SELFPAY | PROVIDERS: PCP Internal Medicine; Visit Provider Nurse Practitioner Family | DX: Z01.811 Encounter for preprocedural respiratory examination (principal); J43.9 Emphysema, unspecified; I71.40 Abdominal aortic aneurysm, without rupture, unspecified; F17.210 Nicotine dependence, cigarettes, uncomplicated | CPT/HCPCS: 94618; 99202 ==

== ENCOUNTER 2023-09-01 14:01 | Outpatient (AMB) | payer MEDICARE, SELFPAY ==
[2023-09-01 14:25] VITALS: BP 114/76; PULSE 74; BMI 18.0
--- NOTE | 2023-09-01 14:25 | MHC.OFFVIS ---
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 Intake Note: NPV w/ EKG Event Organizer Required: No Accompanied by: Self / Same As Patient Allergies penicillin V Allergy (Unknown, Verified 09/01/23 14:26) hives Bee stings Allergy (Unknown, Uncoded 09/01/23 14:26) hives Medication List - Last Reconciled 09/01/23 by Colby Oconnor MD albuterol sulfate 90 mcg/actuation (ProAir HFA) 2 puffs inhalation Q6H PRN bupropion HCl 150 mg PO QAM cholecalciferol (vitamin D3) 50 mcg PO DAILY fluticasone propion-salmeterol 250-50 mcg/dose (Wixela Inhub) 1 inh inhalation Q12H hpwbcykdzjn-waczqluwp-hgvpdwax 200-62.5-25 mcg (Trelegy Ellipta) 1 inh inhalation DAILY levothyroxine 100 mcg PO DAILY 90 days varenicline (Chantix Starting Month Box) PO PER PKG DIR HPI HPI Comments History of Present Illness Details This is a cardiology consultation regarding preoperative risk stratification for abdominal aortic aneurysm repair. Patient herself does not have any known history of coronary artery disease or myocardial infarction or cardiomyopathy or in fact any other cardiac issues. She is a chronic smoker and still smokes. She does get short of breath with activity, presumably from COPD. Does not have any clear-cut angina. [facility] Medical History Nicotine dependence, cigarettes, uncomplicated Osteopenia (~2016) Colon cancer screening Dog bite of finger Herpes zoster Colonoscopy refused Urinary, incontinence, stress female COPD (chronic obstructive pulmonary disease) Graves disease Acquired hypothyroidism (~2004) Surgical History No pertinent past surgical history Family History Father Diabetes mellitus Mother Diabetes mellitus Brother Bone cancer Daughter No problems noted. Daughter No problems noted. Social History Alcohol intake: never Patient Tobacco Use Status: Current everyday Tobacco user Tobacco use type: Cigarette Cigarette Packs Per Day: 1.5 Years Smoked: 55 Review of Systems Const Denies chills, Denies daytime sleepiness, Denies fatigue, Denies fever(s), Denies frequent falls, Denies night sweats, Denies snoring, Denies weakness, Denies weight gain and Denies weight loss Eyes Denies loss of vision ENT Denies dizziness and Denies hearing loss Card Denies chest pain, Denies chest pain with activity, Denies syncope, Denies rapid heart rate, Denies edema, Denies claudication, Denies leg edema, Denies lightheadedness, Denies palpitations, Denies dyspnea on exertion and Denies orthopnea Resp Denies cough, Denies excessive phlegm production, Denies dyspnea on exertion, Denies snoring and Denies wheezing GI Denies abdominal pain, Denies hematochezia, Denies change in bowel habits, Denies change in stool character, Denies heartburn, Denies nausea and Denies vomiting Denies hematuria, Denies urinary frequency and Denies dysuria Musc Denies arthralgias, Denies muscle weakness, Denies numbness and Denies tingling Skin/Breast Denies nail changes and Denies rash Neuro Denies Abnormal speech present, Denies dizziness, Denies syncope, Denies frequent falls, Denies loss of vision, Denies memory loss, Denies numbness, Denies tingling and Denies weakness Psych Denies depression and Denies memory loss Endo Denies fatigue and Denies palpitations Aller/Immun Denies wheezing Physical Exam Vital Signs: Last Vital Signs Pulse 74 09/01/23 14:25 BP 114/76 09/01/23 14:25 BMI result Body Mass Index 18.0 Const General: comfortable and no acute distress Orientation/consciousness: patient oriented x3 HEENT Other: Unremarkable Head: Yes normal to inspection Neck Neck: Yes normal visual inspection Chest Chest palpation & inspection: normal inspection of the chest Resp Auscultation: clear to auscultation bilaterally Cardio Palpation: normal PMI Heart sounds: S1 normal heart sound present, S2 normal heart sound present, no gallops, no murmurs and no rubs GI Palpation (GI): Soft to palpation Back/Spine/Pelvis Other: unremarkable Skin General skin exam: no rashes or lesions noted Neuro General: patient oriented x3 Speech: No Abnormal speech present Extrem General: Yes normal to inspection Psych Mental Status: mental status grossly normal Office Procedures EKG Details: EKG with sinus rhythm at 74/Min; low voltage complexes in lead 1/aVL and could be related to body habitus/emphysema. Can not exclude prior infar[place] [id number], Complete Assessment & Plan Assessment & Plan (1) Preoperative cardiovascular examination: Code(s): Z01.810 - Encounter for preprocedural cardiovascular examination (2) AAA (abdominal aortic aneurysm) without rupture: Code(s): I71.40 - Abdominal aortic aneurysm, without rupture, unspecified Qualifiers: Abdominal aorta location: infrarenal aorta Qualified Code(s): I71.43 - Infrarenal abdominal aortic aneurysm, without rupture Plan Long-term smoker, chronic shortness of breath, COPD, significant vascular disease, plan for abdominal aortic aneurysm repair. Recommend echocardiogram and pharmacological stress perfusion imaging study for further evaluation. Once these are reviewed, addendum can be made to this note. Orders: Orders CA lexiscan stress w peetr Today I20.9 - Angina pectoris, unspecified, Z01.810 - Encounter for preprocedural cardiovascular examination CA echo transthoracic complete Today I25.10 - Atherosclerotic heart disease of [place] coronary artery without angina pectoris, Z01.810 - Encounter for preprocedural cardiovascular examination NM cardiolite stress test Today R07.2 - Precordial pain, Z01.810 - Encounter for preprocedural cardiovascular examination Medications: Changed From bupropion HCl 150 mg PO QAM 30 tabs 1RF To bupropion HCl 150 mg PO QAM Discontinued Symbicort 160-4.5 mcg/actuation (budesonide-formoterol) Discontinued Reason: Insurance Denied 2 puffs inhalation Q12H 3 months 3 inhalers 2RF NS J43.9 - Emphysema, unspecified Coding Level of Care Code New Pt Level 4 (94639) Diagnoses Preoperative cardiovascular examination Z01.810 Infrarenal abdominal aortic aneurysm (AAA) without rupture I71.43 Abdominal aorta location: infrarenal aorta CPT Codes EKG - CPT: 25173-[id number], Complete ([id number])
== END 2023-09-01 14:51 | disposition home or self-care (01) ==
PROVIDERS: PCP Internal Medicine; Visit Provider Internal Medicine
DX: Z01.810 Encounter for preprocedural cardiovascular examination (principal); I71.43 Infrarenal abdominal aortic aneurysm, without rupture
CPT/HCPCS: 93010; 99204

== ENCOUNTER → 2023-09-01 14:01 | Outpatient (BNVA) | payer MEDICARE, SELFPAY | PROVIDERS: PCP Internal Medicine; Visit Provider Internal Medicine | DX: Z01.810 Encounter for preprocedural cardiovascular examination (principal); I71.43 Infrarenal abdominal aortic aneurysm, without rupture | CPT/HCPCS: 93005; 99202 ==

== ENCOUNTER → 2023-09-02 09:13 | Outpatient (REF) | payer MEDICARE, SELFPAY ==
--- NOTE | ~2023-09-02 | NM_ITS ---
Myocardial perfusion study Indication: Precordial pain, preoperative cardia vascular stratification Technique: The patient was brought in for a Lexiscan perfusion study on 09/02/2023. Patient performed low-level exercise and was injected 0.4 mg of Lexiscan intravenously. Within a minute of injection, 25 mCi of sestamibi was given intravenously. Images were obtained using the SPECT gamma camera interlaced with the gating device. Images were obtained in supine position. Resting perfusion study was performed on 09/04/2023. Patient was administered 25 mCi of sestamibi intravenously at rest. Images were then obtained in supine position. Images obtained with and without CT attenuation. Total DLP 91 mGy-cm. Images were processed with the software and compared side to side in short axis, horizontal long axis and vertical long axis views. Findings: Both stress and rest perfusion study limited due to intense subdiaphragmatic uptake interfering with myocardial uptake as well as arms down position during imaging The stress perfusion study showed non attenuated images show mildly reduced uptake in the apex as well as the inferoapical wall of the LV myocardium. Remainder of the LV myocardium is normally perfused. Attenuation corrected images show normal uptake in all segments of LV myocardium. There is suggestion of left ventricle hypertrophy.. The gated study shows normal LV systolic function with calculated LVEF of greater than 60%. LV cavity is normal in size. The gated study shows normal systolic wall thickening and contraction of segments. Resting study shows non attenuated images show mildly reduced uptake in the inferoapical wall of the LV myocardium. Remainder of the LV myocardium is normally perfused. Attenuation corrected images show mildly reduced uptake in the apex of the LV myocardium.. Gating at rest reveals normal systolic wall motion with ejection fraction at 65%. The findings are consistent with findings are equivocal as there is reversible defect noted on non attenuated images which is not noted on attenuated corrected images. Likely normal myocardial perfusion. NM/NM cardiolite stress test Impression: 1. Myocardial perfusion imaging study shows likely normal myocardial perfusion 2. Gated LVEF is 65% 3. Transient ischemic dilatation not present EKG is Nondiagnostic for ischemia
--- NOTE | 2023-09-02 09:16 | CA_ITS ---
Acquisition Time: 2023-09-02 09:37:53 Total Exercise Time: 00:02:00 Test Indications: Dyspnea Medications: ALBUTEROL BUPROPION WIXELA TRELEGY LEVOTHYROXINE CHANTIX Protocol: LEXISCAN Max HR: 103 BPM 68% of Pred: 151 BPM Max BP: 108/062 mmHG Max Work Load: 1.0 METS Pharmacological stress test with Lexiscan injection while sitting and marching in place, without anginal symptoms, without arrhythmais, with normtoenisve response to injection, with nondiagnoisirtic EKGs. Aminophylline 75mg IVP given to reverse Lexiscan . Nuclear images pending. Test reviewed with Dr. Curry. Referred By: Colby Oconnor Overread By: Keely Liang
== END ==
LOC: HO.CARD 09:13
PROVIDERS: PCP Internal Medicine; Visit Provider Internal Medicine
DX: Z01.810 Encounter for preprocedural cardiovascular examination (principal); R07.2 Precordial pain; I20.9 Angina pectoris, unspecified
CPT/HCPCS: 78452; 93017; A9500; J0280; J2785

== ENCOUNTER → 2023-09-02 09:16 | Outpatient (BNV) | payer MEDICARE, SELFPAY | PROVIDERS: PCP Internal Medicine; Visit Provider Nurse Practitioner | DX: R06.00 Dyspnea, unspecified (principal) | CPT/HCPCS: 78452; 93016; 93018 ==

== ENCOUNTER → 2023-09-04 12:56 | Outpatient (REF) | payer MEDICARE, SELFPAY ==
--- NOTE | 2023-09-04 13:04 | CA_ITS ---
Transthoracic Echocardiogram Patient (Last, First, Middle): Yaima Crowder, Gender: Female Date of : 1955 Age: 68 Procedure Date: 09/04/2023 Procedure Type: Transthoracic Echocardiogram Location: OP Height: 170.18 cm Weight: 51.26 kg BSA: 1.59 m2 Heart Rate: 71 bpm BP: 118 / 74 mmHg Manager Party: SB Referring MD: Colby Oconnor MD Symptoms: I25.10 - Atherosclerotic heart disease of [place] coronary artery without... Study Quality: Adequate ECG Rhythm: Sinus Conclusions: - Normal left ventricular size and systolic function. The visually estimated ejection fraction is between 60-65%. There is evidence of regional wall motion abnormalities. Diastolic function is normal for age. There is severe septal asymmetric hypertrophy. - The basal inferior segment is akinetic. - Normal right ventricular cavity size and systolic function. - Mildly elevated right atrial pressure. - The inferior vena cava is dilated and collapses greater than 50% with inspiration. Findings Left Ventricle Normal left ventricular size and systolic function. The visually estimated ejection fraction is between 60-65%. There is evidence of regional wall motion abnormalities. Diastolic function is normal for age. There is severe septal asymmetric hypertrophy. Wall Motion Rest Echo Findings The basal inferior segment is akinetic. Right Ventricle Normal right ventricular cavity size and systolic function. Atria The left atrium is normal in size. The right atrium is normal in size. Aortic Valve Normal aortic valve structure and function. There is no aortic valve stenosis. There is no aortic valve regurgitation. Mitral Valve The mitral valve appears normal. There is no mitral valve regurgitation. There is no mitral valve stenosis. Pulmonic Valve The pulmonic valve is likely normal. Tricuspid Valve Normal tricuspid valve structure. There is no tricuspid valve regurgitation. Mildly elevated right atrial pressure. There is no evidence of pulmonary hypertension. Great Vessels All visible segments of the aorta are normal in size. Venous The inferior vena cava is dilated and collapses greater than 50% with inspiration. Pericardium/Pleural There is no evidence of pericardial effusion. Prior Study Comparison No prior study available for comparison. Measurements 2D Linear Measurements IVSd: 0.83 0.6-0.9/0.6-1.0 cm LVIDd: 4.52 3.9-5.3/4.2-5.9 cm LVIDd Index: 2.84 2.4-3.2/2.2-3.1 cm/m2 LVIDs: 3.09 2.0-3.6 cm LVPWd: 0.63 0.7-1.1 cm LA Diam: 2.40 2.7-3.8/3.0-4.0 cm LAIDs Index: 1.51 1.5-2.3 cm/m2 LV Mass: 126.14 67-162/88-224 g LV Mass Index: 79.33 43-95/49-115 g/m2 LVOT Diam: 2.10 3.0+(-)1.3 cm 2D Systolic Function EF 4C: 60.20 >55% EF 2C: 71.60 >55% EF BiP: 65.60 >55% Mitral Valve MV Pk E: 0.88 MV PK A: 0.54 MV Decel Time: 214.00 E/A: 1.60 E'Lateral: 8.27 E'Medial: 7.40 E/E' Med: 11.90 E/E' Lat: 10.70 PHT: 63.00 MVA PHT: 3.49 Decel [place]: 4.13 Aortic Valve AoV Pk Arturo: 1.16 AoV Pk Grad: 5.00 EARL: 3.40 LVOT LVOT Pk Arturo: 1.14 LVOT Mn Arturo: 0.83 LVOT VTI: 0.27 LVOT Pk Grad: 5.00 LVOT Mn Grad: 3.00 LVOT Diam: 2.10 LVOT Area: 3.46 Diastolic Function MV Pk E: 0.88 MV Pk A: 0.54 E/A: 1.60 E'Medial: 7.40 E/E' Med: 11.90 E' Laterial: 8.27 E/E' Lat: 10.70 Right Ventricle TAPSE (mm): 25.40 TVS' Arturo: 12.10 Tricuspid Valve TR Pk Arturo: 2.62 TR Pk Grad: 27.00 RA Press: 8.00 RVSP: 35.00 Great Vessels Aorta Sinus of Valsalva: 3.30 2.0-3.5 cm Pulmonary Valve PV Pk Arturo: 1.08 Peak PV Grad: 5.00 Updated in Other Vendor System with Status of Final Mohit Curry MD electronically signed on 09/06/2023 11:25:53 AM with status of Final
== END ==
LOC: HO.CARD 12:56
PROVIDERS: PCP Internal Medicine; Visit Provider Internal Medicine
DX: Z01.810 Encounter for preprocedural cardiovascular examination (principal); I25.10 Atherosclerotic heart disease of native coronary artery without angina pectoris
CPT/HCPCS: 93306

== ENCOUNTER → 2023-09-04 13:04 | Outpatient (BNV) | payer MEDICARE, SELFPAY | PROVIDERS: PCP Internal Medicine; Visit Provider Internal Medicine Cardiovascular Disease | DX: I25.10 Atherosclerotic heart disease of native coronary artery without angina pectoris (principal); I42.2 Other hypertrophic cardiomyopathy | CPT/HCPCS: 93350 ==

== ENCOUNTER 2023-09-14 06:02 | Inpatient (IN) | payer MEDICARE, SELFPAY ==
[2023-09-08 13:59] VITALS: BP 103/60; PULSE 64; RESP 16; O2SAT 98; BMI 18.2
[2023-09-08 16:18] LABS: Hematocrit 37.9 % (37.0-47.0); Hemoglobin 12.1 g/dl (12.0-16.0); Mean Corpuscular HGB Conc 31.9 g/dl (31.0-35.0); Mean Corpuscular Hemoglobin 21.4 pg (27.0-33.0); Mean Platelet Volume 9.9 fL (9.4-12.3); Platelet Count 263 X10*3/uL (160-400); Red Blood Count 5.66 X10*6/uL (4.20-5.50); Red Cell Distribution Width 19.8 % (11.0-16.0); White Blood Count 8.6 X10*3/uL (4.8-10.8)
[2023-09-08 16:21] LABS: INTERNATIONAL NORM RATIO 0.9 (0.9-1.1); Prothrombin Time 11.3 SEC (11.1-13.3)
[2023-09-08 16:23] LABS: Partial Thromboplastin Time 33.8 SEC (26.0-36.8)
[2023-09-08 16:34] LABS: Anion Gap 9 (12-20); Blood Urea Nitrogen 10 mg/dL (9-16); Calcium 9.4 mg/dL (8.4-10.2); Carbon Dioxide 29 mmol/L (22-29); Chloride 101 mmol/L (96-108); Estimated Glomerular Filt Rate > 60; Glucose Random 86 mg/dL (60-115); Potassium 4.2 mmol/L (3.3-5.1); Sodium 135 mmol/L (135-145)
[2023-09-14] VITALS (19 sets, daily range): BP systolic 95–123; BP diastolic 43–86; PULSE 67–96; RESP 12–20; TEMP 36.2–37.4; O2SAT 92–100; BMI 18.4
--- NOTE | ~2023-09-14 | FL_ITS ---
EXAMINATION: XR FLUOROSCOPY WITH IMAGES CLINICAL INFORMATION: Abdominal aortic aneurysm. COMPARISON: CTA abdomen and pelvis dated 08/21/2023. TECHNIQUE: Fluoroscopy Supervised By: Dr. Shmuel Day. Fluoroscopy Time: 46.1 minutes. Cumulative Dose: 384 mGy. DAP: 101 Gycm2. Images: 13. FINDINGS: The submitted images are obtained during placement of an aortobiiliac stent graft. FL/FL guidance in OR IMPRESSION: Intraoperative fluoroscopic guidance is provided during aortobiiliac stent graft placement. Please see the patient's Operative Report for full procedural details.
[2023-09-14] MEDS: Lactated Ringers 1,000 ML 100 ML IVCONT (06:48)
[2023-09-14 06:51] LABS: COVID-19 Test Negative (Negative); IDNOW Serial# 152EDE1D
[2023-09-14] MEDS: vancomycin HCL 1,000 MG in 0.9 % Sodium Chloride 250 ML 270 MG IV (07:02)
--- NOTE | 2023-09-14 07:35 | HO.ANESPROP2 ---
Documented by User: Arcelia Bustamante NP 09/11/23 08:57 HPI - Anesthesia Eval Consult details Narrative: 68yo F for Endovascular Abdominal Aortic Aneurysm Repair, possible open Cardiac cleared Pulmo cleared No recent illness No CP. CARLIN at baseline (stairs, carrying load) COPD. Stable, Scheduled inhalers as rx'd. Albuterol rare (with colds). Smoker. Chantix with decrease in smoking Mother with severe PONV. Pt with severe N/V with codeine (only took once) Graves ds s/p LEGGETT PMFSH Active Problems Active Problems: All Active Problems (Updated 09/08/23 @ 14:14 by Carito Brooks, RN) Preoperative cardiovascular examination (Acute) Encounter for preoperative pulmonary examination (Acute) AAA (abdominal aortic aneurysm) without rupture (Acute) Other specified hypothyroidism (Acute) Constipation by delayed colonic transit (Acute) RUQ abdominal pain (Acute) Abdominal aortic aneurysm (Acute) Acquired hypothyroidism (Acute ~2004) Osteopenia (Acute ~2017) COPD (chronic obstructive pulmonary disease) (Acute) Nicotine dependence, cigarettes, uncomplicated (Acute) Urinary, incontinence, stress female (Acute) Colonoscopy refused (Acute) Past Medical History Medical History (Updated 09/08/23 @ 14:27 by Carito Brooks, TOMMY) Seasonal allergies History of verrucae (wart) excision (~1973) Nicotine dependence, cigarettes, uncomplicated Osteopenia (~2016) Colon cancer screening Dog bite of finger (~2018) Herpes zoster Colonoscopy refused Urinary, incontinence, stress female COPD (chronic obstructive pulmonary disease) Graves disease Acquired hypothyroidism (~2004) Family History Family History Father Diabetes mellitus Mother Diabetes mellitus Brother Bone cancer Daughter No problems noted. Daughter No problems noted. Family history of problems with anesthesia: Yes (PONV) Surgical History Surgical History (Updated 09/08/23 @ 13:48 by Carito Brooks, RN) H/O excision of ganglion cyst (~1973) History of Problems with Anesthesia: No Social History Social History (Updated 09/08/23 @ 14:15 by Carito Brooks, TOMMY) Household Members: Spouse Housing: House Are you a primary customer care representative to a significant other at home: No Do you presently have visiting nurse or other home services: No Alcohol intake: never Patient Tobacco Use Status: Current everyday Tobacco user Tobacco use type: Cigarette Cigarette Packs Per Day: 0.5 Cigarettes Per Day: 10.0 Years Smoked: 50+ Smoked in Last 30 Days: Yes Patient Interested in Nicotine Replacement: Yes (currently taking varenicline BID) Second Hand Smoke Exposure: Yes () Use of substances other than those prescribed or required for medical reasons: Yes Substance Use Type: Marijuana Substance Use Frequency: Daily Have you been hit, kicked, punched, or otherwise hurt by someone within the past year? If so, by whom?: No Are you DNR?: No Advance Directives: No Advance Directives Information Provided: Yes Advance Directives on File: No Recently lost weight without trying: Yes How much weight loss: 14-23 pounds Eating poorly because of decreased appetite: Yes Nutrition screen score: 5 Poor oral hygiene: No Meds Allergies Allergy/AdvReac Type Severity Reaction Status Date / Time Penicillins Allergy Hives Verified 09/08/23 13:50 vancomycin Allergy Itching Verified 09/14/23 07:38 Bee stings Allergy Severe hives Uncoded 09/08/23 13:49 Home Medications ?Medication ?Instructions ?Recorded ?Confirmed ?Last Taken ?Type cholecalciferol (vitamin D3) 50 50 mcg PO DAILY 05/01/20 09/08/23 09/13/23 History mcg (2,000 unit) capsule budesonide-formoterol HFA 160 2 inh inhalation BID 09/08/23 09/08/23 09/14/23 05:30 History mcg-4.5 mcg/actuation aerosol inhaler (Symbicort) Exam Height,Weight and Vital Signs: Height 5 ft 7 in Weight 52.617 kg Last Vital Signs Pulse 64 09/08/23 13:59 Resp 16 09/08/23 13:59 BP 103/60 09/08/23 13:59 Pulse Ox 98 09/08/23 13:59 O2 Del Method Room Air 09/08/23 13:59 Pertinent Lab Results Pertinent Lab Results: Lab Results 09/08/23 09/08/23 Range/Units 14:50 14:54 WBC 8.6 (4.8-10.8) X10*3/uL RBC 5.66 H (4.20-5.50) X10*6/uL Hgb 12.1 (12.0-16.0) g/dl Hct 37.9 (37.0-47.0) % MCV 67.0 L (80.0-98.0) fL MCH 21.4 L (27.0-33.0) pg MCHC 31.9 (31.0-35.0) g/dl RDW 19.8 H (11.0-16.0) % Plt Count 263 (160-400) X10*3/uL MPV 9.9 (9.4-12.3) fL Absolute Nucleated RBC 0.000 (0.0-0.012) X10*3/uL Nucleated RBC % (auto) 0.0 (0.0-0.2) /100WBC PT 11.3 (11.1-13.3) SEC INR 0.9 (0.9-1.1) APTT 33.8 (26.0-36.8) SEC Sodium 135 (135-145) mmol/L Potassium 4.2 (3.3-5.1) mmol/L Chloride 101 (96-108) mmol/L Carbon Dioxide 29 (22-29) mmol/L Anion Gap 9 L (12-20) BUN 10 (9-16) mg/dL Creatinine 0.79 (0.5-1.4) mg/dL Estim Creat Clear Calc 55.0 Estimated GFR > 60 Random Glucose 86 (60-115) mg/dL Calcium 9.4 (8.4-10.2) mg/dL Blood Type O Positive Antibody Screen NEGATIVE Narrative Narrative: EKG 08/2023 Details: EKG with sinus rhythm at 74/Min; low voltage complexes in lead 1/aVL and could be related to body habitus/emphysema. Can not exclude prior infarct. Normal MA and corrected QT. ECHO 08/2023 Conclusions: - Normal left ventricular size and systolic function. The visually estimated ejection fraction is between 60-65%. There is evidence of regional wall motion abnormalities. Diastolic function is normal for age. There is severe septal asymmetric hypertrophy. - The basal inferior segment is akinetic. - Normal right ventricular cavity size and systolic function. - Mildly elevated right atrial pressure. - The inferior vena cava is dilated and collapses greater than 50% with inspiration. NM cardiolite stress test 08/2023 Impression: 1. Myocardial perfusion imaging study shows likely normal myocardial perfusion 2. Gated LVEF is 65% 3. Transient ischemic dilatation not present EKG is Nondiagnostic for ischemia CT angio abdomen pelvis 08/2023 IMPRESSION: * The fusiform infrarenal abdominal aorta aneurysm measures up to 6 cm maximum transverse diameter. * Colonic diverticulosis without diverticulitis. Airway Mallampati Class: II TM Dist: >3cm Neck ROM: Limited (OA) Loose/Missing/Broken Teeth: Yes (Missing throughout, #24 missing) Heart: RRR Lungs: CTAB Assessment and Plan Assessment Anesthesia Assessment: Anesthesia Plan Discussed, Smoking Cess. Discussed and PAT Visit Final Anesthetic Review Family History of Problems with Anesthesia: Yes (PONV) History of Problems with Anesthesia: No Documented by User: Beatriz Jackson DO 09/14/23 07:44 PMFSH Past Medical History Medical History (Updated 09/08/23 @ 14:27 by Carito Brooks, RN) Seasonal allergies History of verrucae (wart) excision (~1973) Nicotine dependence, cigarettes, uncomplicated Osteopenia (~2016) Colon cancer screening Dog bite of finger (~2018) Herpes zoster Colonoscopy refused Urinary, incontinence, stress female COPD (chronic obstructive pulmonary disease) Graves disease Acquired hypothyroidism (~2004) Family History Family History Father Diabetes mellitus Mother Diabetes mellitus Brother Bone cancer Daughter No problems noted. Daughter No problems noted. Family history of problems with anesthesia: Yes (PONV) Surgical History Surgical History (Updated 09/08/23 @ 13:48 by Carito Brooks, RN) H/O excision of ganglion cyst (~1973) History of Problems with Anesthesia: No Social History Social History (Updated 09/08/23 @ 14:15 by Carito Brooks, RN) Household Members: Spouse Housing: House Are you a primary customer care representative to a significant other at home: No Do you presently have visiting nurse or other home services: No Alcohol intake: never Patient Tobacco Use Status: Current everyday Tobacco user Tobacco use type: Cigarette Cigarette Packs Per Day: 0.5 Cigarettes Per Day: 10.0 Years Smoked: 50+ Smoked in Last 30 Days: Yes Patient Interested in Nicotine Replacement: Yes (currently taking varenicline BID) Second Hand Smoke Exposure: Yes () Use of substances other than those prescribed or required for medical reasons: Yes Substance Use Type: Marijuana Substance Use Frequency: Daily Have you been hit, kicked, punched, or otherwise hurt by someone within the past year? If so, by whom?: No Are you DNR?: No Advance Directives: No Advance Directives Information Provided: Yes Advance Directives on File: No Recently lost weight without trying: Yes How much weight loss: 14-23 pounds Eating poorly because of decreased appetite: Yes Nutrition screen score: 5 Poor oral hygiene: No Meds Allergies Allergy/AdvReac Type Severity Reaction Status Date / Time Penicillins Allergy Hives Verified 09/08/23 13:50 vancomycin Allergy Itching Verified 09/14/23 07:38 Bee stings Allergy Severe hives Uncoded 09/08/23 13:49 Home Medications ?Medication ?Instructions ?Recorded ?Confirmed ?Last Taken ?Type cholecalciferol (vitamin D3) 50 50 mcg PO DAILY 05/01/20 09/08/23 09/13/23 History mcg (2,000 unit) capsule budesonide-formoterol HFA 160 2 inh inhalation BID 09/08/23 09/08/23 09/14/23 05:30 History mcg-4.5 mcg/actuation aerosol inhaler (Symbicort) Exam Exam Date and Time: September 14, 2023 0735 Height,Weight and Vital Signs: Height 5 ft 7 in Weight 52.617 kg Last Vital Signs Pulse 64 09/08/23 13:59 Resp 16 09/08/23 13:59 BP 103/60 09/08/23 13:59 Pulse Ox 98 09/08/23 13:59 O2 Del Method Room Air 09/08/23 13:59 Vital Signs Pulse Rate 64 09/08/23 13:59 Respiratory Rate 16 09/08/23 13:59 Blood Pressure 103/60 09/08/23 13:59 Pulse Oximetry 98 09/08/23 13:59 Oxygen Delivery Method Room Air 09/08/23 13:59 Temperature 99.3 F 09/14/23 06:29 Pulse Rate 67 09/14/23 06:29 Respiratory Rate 16 09/14/23 06:29 Blood Pressure 123/73 09/14/23 06:29 Pulse Oximetry 98 09/14/23 06:29 Oxygen Delivery Method Room Air 09/14/23 06:29 Airway Mallampati Class: II TM Dist: >3cm Neck ROM: Limited Heart: S1S2 Assessment and Plan Assessment Anesthesia Assessment: Anesthesia Plan Discussed and Chart Reviewed Final Anesthetic Review Family History of Problems with Anesthesia: Yes (PONV) History of Problems with Anesthesia: No NPO: Yes ASA Class: III Final Preanesthetic Review: No Changes in Pt Med Stat, Meds/Allgs Chart Reviewed, Consent Obtained/Reviewed and Anes Risks/Benef Reviewed Patient Risk: Intermediate Procedure Risk: Intermediate Anesthetic Plan Anesthetic Plan: GA and Agree w/ Assess. and Plan Disposition: Standard PACU
--- NOTE | 2023-09-14 07:38 | PC.NURSE ---
patient was given half the dose of vancomycin and began to have itching in her head and neck area. stopped antibiotic. anesthesia by bedside. no sob or resp distress.
--- NOTE | 2023-09-14 07:42 | PC.NURSE ---
md schroeder aware of the antibiotic reaction.
--- NOTE | 2023-09-14 07:49 | MHC.SHP ---
Pre-Procedural Eval Section A - 24 Hr Update-Section A only Date of Service: 09/14/23 The patient is an INPATIENT: No Changes since office visit: Yes Patient answered all questions The patient has been examined within 24 hours of the surgical procedure. The History & Physical has been completed within 30 days and I have reviewed it.: Yes Section B - Complete if H&P > 30 days Chief Complaint: post op Allergies: Allergies Allergy/AdvReac Type Severity Reaction Status Date / Time Penicillins Allergy Hives Verified 09/08/23 13:50 vancomycin Allergy Itching Verified 09/14/23 07:38 Bee stings Allergy Severe hives Uncoded 09/08/23 13:49 Plan I have reviewed the history and physical and performed a pertinent physical examination on my patient. No changes have occurred unless specified. Time Spent With Patient Time: Total time managing care of this patient today ____ minutes.
--- NOTE | 2023-09-14 07:50 | PC.NURSE ---
awaiting the 24hour note and was having an allergic reaction to vancomycin
--- NOTE | 2023-09-14 10:03 | PM.CCHP ---
History of Present Illness Date of Service: 09/14/23 Chief Complaint: Abdominal Aortic Aneursym Repair Patient is a 67 Y F with tobacco use, COPD, grave's disease, and known 6 cm abdominal aortic aneurysm, s/p reportedly uneventful repair on 09/13, EBL 400 mL Review of Systems Review of Systems: Yes all other systems are reviewed and are negative [facility] Past Medical History Medical History (Updated 09/08/23 @ 14:27 by Carito Brooks, TOMMY) Seasonal allergies History of verrucae (wart) excision (~1973) Nicotine dependence, cigarettes, uncomplicated Osteopenia (~2016) Colon cancer screening Dog bite of finger (~2018) Herpes zoster Colonoscopy refused Urinary, incontinence, stress female COPD (chronic obstructive pulmonary disease) Graves disease Acquired hypothyroidism (~2004) Family History Family History Father Diabetes mellitus Mother Diabetes mellitus Brother Bone cancer Daughter No problems noted. Daughter No problems noted. Surgical History Surgical History (Updated 09/08/23 @ 13:48 by Carito Brooks RN) H/O excision of ganglion cyst (~1973) Social History Social History (Updated 09/08/23 @ 14:15 by Carito Brooks RN) Household Members: Spouse Housing: House Are you a primary customer care agent to a significant other at home: No Do you presently have visiting nurse or other home services: No Alcohol intake: never Patient Tobacco Use Status: Current everyday Tobacco user Tobacco use type: Cigarette Cigarette Packs Per Day: 0.5 Cigarettes Per Day: 10.0 Years Smoked: 50+ Smoked in Last 30 Days: Yes Patient Interested in Nicotine Replacement: Yes (currently taking varenicline BID) Second Hand Smoke Exposure: Yes () Use of substances other than those prescribed or required for medical reasons: Yes Substance Use Type: Marijuana Substance Use Frequency: Daily Have you been hit, kicked, punched, or otherwise hurt by someone within the past year? If so, by whom?: No Are you DNR?: No Advance Directives: No Advance Directives Information Provided: Yes Advance Directives on File: No Recently lost weight without trying: Yes How much weight loss: 14-23 pounds Eating poorly because of decreased appetite: Yes Nutrition screen score: 5 Poor oral hygiene: No Meds Allergies Allergy/AdvReac Type Severity Reaction Status Date / Time Penicillins Allergy Hives Verified 09/08/23 13:50 vancomycin Allergy Itching Verified 09/14/23 07:38 Bee stings Allergy Severe hives Uncoded 09/08/23 13:49 Active Medications: Current Medications Albuterol Sulfate (Albuterol Sulfate (0.083%) 2.5 Mg/3 Ml Vial.Neb) 2.5 mg INHALE ONCE PRN PRN Reason: Shortness of Breath/Wheezing Haloperidol Lactate (Haloperidol Lactate 5 Mg/Ml Vial) 0.5 mg IVPUSH ONCE PRN PRN Reason: Nausea and Vomiting Hydromorphone HCl (Hydromorphone Hcl 0.5 Mg/0.5 Ml Syringe) 0.5 mg IVPUSH Q5M PRN; Protocol PRN Reason: Pain, Severe (Pain Scale 7-10) Stop: 09/14/23 13:45 Lactated Ringer's (Lr) 1,000 mls @ 100 mls/hr IVCONT .Q10H RHIANNA Last Admin: 09/14/23 06:48 Dose: 100 mls/hr Pharmacy Consult (Consult Rx Vancomycin Dosing) 1 each MISCELLANE DAILY PRN PRN Reason: Consult order Home Medications ?Medication ?Instructions ?Recorded ?Confirmed ?Last Taken ?Type cholecalciferol (vitamin D3) 50 50 mcg PO DAILY 05/01/20 09/08/23 09/13/23 History mcg (2,000 unit) capsule budesonide-formoterol HFA 160 2 inh inhalation BID 09/08/23 09/08/23 09/14/23 05:30 History mcg-4.5 mcg/actuation aerosol inhaler (Symbicort) Physical Exam Vital Signs: Vital Signs: Last Vital Signs Temp 99.3 F 09/14/23 06:29 Pulse 67 09/14/23 06:29 Resp 16 09/14/23 06:29 BP 123/73 09/14/23 06:29 Pulse Ox 98 09/14/23 06:29 O2 Del Method Room Air 09/14/23 06:29 BMI result Body Mass Index 18.4 Const: General: cooperative, healthy appearing, comfortable, no acute distress, well developed, alert, awake and Physically active Orientation/consciousness: patient oriented x3 HEENT: Head: Yes normal to inspection, Yes normocephalic and Yes atraumatic Eyes: General: appearance normal, both eyes and all related structures Neck: Neck: Yes normal visual inspection, Yes full ROM, Yes trachea midline and Yes supple Chest: Chest palpation & inspection: normal inspection of the chest Resp: Other: no appreciable rales, rhonchi, wheezing Effort & Inspection: normal respiratory effort Cardio: Rate: regular rate Rhythm: regular rhythm GI: Inspection: Yes normal to inspection, No Abdominal wall edema and No distended Palpation (GI): Soft to palpation, not firm, nontender, no guarding and not rigid : External Female Exam: normal external appearance Skin: General skin exam: no rashes or lesions noted Neuro: General: patient oriented x3, tone normal, moves all extremities and no focal motor deficits Extrem: Other: peripheral pulses appreciated bilateral lower extremities; no appreciable fluctuance, induration, hematoma bilateral groin General: Yes normal to inspection, Yes capillary refill normal and Yes no clubbing, cyanosis or edema Psych: Appearance: grossly normal Results Labs 09/08/23 14:54 09/08/23 14:54 Labs: Laboratory Results - last 24 hr 09/08/23 09/14/23 14:50 06:20 COVID-19 ([facility]) Negative COVID-19 Clin Com See Note Blood Type O Positive Antibody Screen NEGATIVE Crossmatch See Detail Assessment and Plan (1) AAA (abdominal aortic aneurysm) without rupture: Qualifiers: Abdominal aorta location: infrarenal aorta Qualified Code(s): I71.43 - Infrarenal abdominal aortic aneurysm, without rupture Status: Acute (2) Acquired hypothyroidism: Status: Acute (3) COPD (chronic obstructive pulmonary disease): Qualifiers: COPD type: emphysema Emphysema type: unspecified Qualified Code(s): J43.9 - Emphysema, unspecified Status: Acute (4) Nicotine dependence, cigarettes, uncomplicated: Status: Acute Plan Patient is a 67 Y F with tobacco use, COPD, grave's disease, and known 6 cm abdominal aortic aneurysm, s/p reportedly uneventful repair on 09/13 N: no acute issues CV: abdominal aortic aneurysm, s/p repair R: no acute issues; COPD GI: advance diet per surgery : no acute issues H: EBL 400 mL, w/o appreciable hemodynamic instability; transfuse as needed ID: no acute issues E: graves disease, home levothyroxine P: no acute issues
--- NOTE | 2023-09-14 11:53 | W.PM.OPN ---
Operative Note Operative Note Date of Service: 09/14/23 Narrative: Operative note by [facility] Preoperative diagnosis: Abdominal aortic aneurysm Postoperative diagnosis: Same Procedure:1. Endovascular aortic aneurysm repair (Endologix Deadwood) 2. Bilateral femoral artery cutdown 3. Radiologic supervision and interpretation. Surgeon:Shmuel Day M.D. Contact And Service Clerks Supervisor: Dr. Varela Anesthesia: General by Dr. Jackson Specimens: None Drains: None Estimated blood loss: 400 mL Indications: Very pleasant 68-year-old female with incidental finding abdominal aortic aneurysm that measures approximately [address] angiogram. She now presents for endovascular intervention. The patient has signed the informed consent after reviewing risks, complications, benefits, and alternatives previously discussed with the patient. The patient was given the opportunity to ask any additional questions or voice any concerns. All questions were answered to the patient's satisfaction. Procedure in detail: Patient was brought to the operating room prior to which a time-out was performed for patient identification and site verification. We performed bilateral common femoral cutdowns using standard technique. We used transverse incisions dissected down to the common femoral artery. This was encircled with silastic loops. We inserted a 5 Fijian sheath into bilateral femoral vessels. And then we inserted a 035 Bentson wire. Angiogram was performed to measure vessel length and characterize anatomy and its topography. We then placed a the introducer sheath of 16 Fijian into the ipsilateral side. We loaded the main body Deadwood device measuring 26 mm. This was brought up over for on to a Lunderquist wire which had been previously placed at the aortic arch. We inserted the delivery system into the vasculature and advanced it until implant radial opaque markers were approximately 1 cm proximal to the intended landing site. We oriented the aortic body to the desired position for appropriate access to the contralateral aortic lid body limb which was more of a true AP location. We retracted the delivery system until the outer sheath and the retraction knob met the handle. Deployment 1st segment of the proximal stent by turning the 1st stent in not 1/4 turn counter-clockwise and then steadily pulled the knob from the wire handle. We removed the white cap from the balloon injecting the port and insufflated with saline in contrast to open the mid crown. Complete deflation of the integral balloon. Precise position implant radiopaque markers at the frog proximal landing site. We deployed the remainder of the proximal not by turning the 2nd stent release knob quarter turn counter-clockwise and steadily released the pull now and the wire from the handle. We removed the green fill cap from the polymer injection port and attached fill syringe to it. We injected the palmar until it was filled. We retracted the aortic body guidewire until the stiff 2 floppy transition was in the aortic body leg. We obtained contralateral limb lumen with a guidewire via using the integrated crossover lumen into the aortic body and snared it using the contralateral side. We then inserted a Mcguffey catheter and we inserted a 018 tavares wire into this. We inserted marker catheter into the contralateral side and performed angiogram to confirm the contralateral limb length. We loaded a 18 x 100 contralateral limb observation limb on to the contralateral side. We confirmed proximal iliac limb radiopaque markers were at the appropriate locations and that the iliac limb was in the contralateral lumen of the aortic bodies stent graft leg. We retracted the sheath to deployed the limb while maintaining catheter handle position. We then maintained position of the sheath and retracted the catheter handle to receive the nose cone in end of delivery system outer sheath. We readvanced the aortic body guidewire. We released catheter from aortic body turned release knob quarter turn counter-clockwise and steadily pulled the knob and wire from the handle. While maintaining guidewire position stabilize sheath and retracted catheter handle to receive the nose cone into the end of the delivery system an outside sheath. We sized and deployed the ipsilateral sheath which was a 14 x 100 ovation limb. Angioplasty balloons were used of a 12 x 40 in the proximal and each limb. We also used a noncompliant balloon to plasty out the left iliac limb. Completion angiogram demonstrated excellent result. We moved glidewire and introducer sheath. We closed the arteriotomies using 4-0 Prolene. Incisions were closed using 2 0 poly Sorb 3-0 poly Sorb and finally 4-0 Monocryl. Sterile dressings were applied. At the end the case sponge instrument counts were correct. Interpretation of films: 1. Initial angiogram demonstrated aortic aneurysm with significantly angulated neck. 2. Completion angiogram demonstrated appropriate placement of endograft with no evidence of endoleak. Conclusion: Successful placement of Endologix Deadwood aortic stent graft system This note is constructed using voice recognition software. While every effort has been made to ensure accuracy, guidance and control system engineer errors may have been included. Thank you for allowing me to participate in the care of your patient. Yours sincerely, Shmuel Day MD, FACS, R.P.V.I.
[2023-09-14] MEDS: 0.9 % Sodium Chloride 1,000 ML 80 ML IVCONT ×2 (13:43→23:40)
[2023-09-14] MEDS: Acetaminophen 325 MG TABLET 650 MG PO (13:57)
[2023-09-14 13:59] LABS: Basophils Absolute Auto 0.1 X10*3/uL (0.0-0.2); Basophils Percent Auto 0.4 % (0-2); Hematocrit 32.7 % (37.0-47.0); Hemoglobin 10.5 g/dl (12.0-16.0); Imm Gran Abs Auto 0.08 X10*3/uL (0.00-0.03); Imm Gran Pct Auto 0.6 % (0.0-0.4); Lymphocytes Absolute Auto 0.7 X10*3/uL (1.2-4.9); Lymphocytes Percent Auto 4.9 % (20-40); MANUAL DIFF FLAG SCAN; Mean Corpuscular HGB Conc 32.1 g/dl (31.0-35.0); Mean Corpuscular Hemoglobin 21.6 pg (27.0-33.0); Mean Corpuscular Volume 67.1 fL (80.0-98.0); Mean Platelet Volume 9.1 fL (9.4-12.3); Monocytes Absolute Auto 0.1 X10*3/uL (0.1-1.2); Neutrophils Absolute Auto 13.1 x10*3/uL (2.0-8.3); Neutrophils Percent Auto 93.1 % (45-73); Platelet Count 208 X10*3/uL (160-400); Red Blood Count 4.87 X10*6/uL (4.20-5.50); Red Cell Distribution Width 18.5 % (11.0-16.0); SCAN SMEAR FLAG 1; White Blood Count 14.1 X10*3/uL (4.8-10.8)
[2023-09-14 14:11] LABS: Anion Gap 9 (12-20); Blood Urea Nitrogen 9 mg/dL (9-16); Calcium 9.4 mg/dL (8.4-10.2); Carbon Dioxide 24 mmol/L (22-29); Chloride 107 mmol/L (96-108); Creatinine Clr Calc Pharmacy 66.6; Estimated Glomerular Filt Rate > 60; Glucose Random 151 mg/dL (60-115); Potassium 4.2 mmol/L (3.3-5.1); Sodium 136 mmol/L (135-145)
[2023-09-14 14:29] LABS: SLIDE REVIEW VERIFIED
[2023-09-14] MEDS: Lactated Ringers 500 ML IVCONT (15:21)
[2023-09-14] MEDS: 0.9 % Sodium Chloride Flush 3 ML SYRINGE IVFLUSH ×2 (15:21→23:45)
[2023-09-14] MEDS: Lidocaine 4 % Patch ADH..PATCH 2 PATCH TRANSDERMA (15:21)
--- NOTE | 2023-09-14 16:46 | PHA.MEDREC ---
Pharmacy Consult ? Medication Reconciliation Pharmacy has reviewed the medication reconciliation done by nursing staff and also spoke to patient (she said she is only on 2 inhalers - the albuterol and symbicort).
[2023-09-14] MEDS: oxyCODONE HCl Immed Release 5 MG TABLET PO (19:47)
[2023-09-14 20:38] LABS: Hematocrit 28.9 % (37.0-47.0); Hemoglobin 9.3 g/dl (12.0-16.0)
[2023-09-14] MEDS: ondansetron HCL 4 MG/2 ML VIAL IVPUSH (23:40)
[2023-09-15] VITALS (15 sets, daily range): BP systolic 95–126; BP diastolic 47–66; PULSE 60–93; RESP 12–22; TEMP 36.4; O2SAT 88–95; BMI 21.0
[2023-09-15 06:01] LABS: Basophils Absolute Auto 0.1 X10*3/uL (0.0-0.2); Basophils Percent Auto 0.3 % (0-2); Eosinophils Percent Auto 0.1 % (0-4); Hematocrit 26.4 % (37.0-47.0); Hemoglobin 8.4 g/dl (12.0-16.0); Imm Gran Abs Auto 0.11 X10*3/uL (0.00-0.03); Imm Gran Pct Auto 0.6 % (0.0-0.4); Lymphocytes Absolute Auto 2.4 X10*3/uL (1.2-4.9); Lymphocytes Percent Auto 12.4 % (20-40); MANUAL DIFF FLAG SCAN; Mean Corpuscular HGB Conc 31.8 g/dl (31.0-35.0); Mean Corpuscular Hemoglobin 21.4 pg (27.0-33.0); Mean Corpuscular Volume 67.3 fL (80.0-98.0); Mean Platelet Volume 9.5 fL (9.4-12.3); Monocytes Absolute Auto 1.7 X10*3/uL (0.1-1.2); Monocytes Percent Auto 8.8 % (2-11); NRBC Pct Auto 0.1 /100WBC (0.0-0.2); Neutrophils Absolute Auto 15.2 x10*3/uL (2.0-8.3); Neutrophils Percent Auto 77.8 % (45-73); Platelet Count 163 X10*3/uL (160-400); Red Blood Count 3.92 X10*6/uL (4.20-5.50); Red Cell Distribution Width 18.2 % (11.0-16.0); SCAN SMEAR FLAG 1; White Blood Count 19.5 X10*3/uL (4.8-10.8)
[2023-09-15] MEDS: Levothyroxine Sodium 100 MCG TABLET PO (06:10)
[2023-09-15 06:11] LABS: Anion Gap 9 (12-20); Blood Urea Nitrogen 8 mg/dL (9-16); Calcium 8.3 mg/dL (8.4-10.2); Carbon Dioxide 25 mmol/L (22-29); Chloride 105 mmol/L (96-108); Estimated Glomerular Filt Rate > 60; Glucose Random 105 mg/dL (60-115); Potassium 3.7 mmol/L (3.3-5.1); Sodium 135 mmol/L (135-145)
[2023-09-15 06:40] LABS: SLIDE REVIEW VERIFIED
[2023-09-15] MEDS: Cholecalciferol (Vitamin D3) 25 MCG TABLET 50 MCG PO (07:27)
--- NOTE | 2023-09-15 08:04 | PM.CCPN ---
Subjective Subjective Date of Service: 09/15/23 Interval History: no significant overnight events Critical Care Time (minutes): 0 Physical Exam Vital Signs: Vital Signs: Last Vital Signs Temp 97.3 F 09/14/23 23:00 Pulse 69 09/15/23 07:00 Resp 16 09/15/23 07:00 BP 101/55 L 09/15/23 07:00 Pulse Ox 93 09/15/23 07:00 O2 Del Method Nasal Cannula 09/15/23 07:00 O2 Flow Rate 2 09/15/23 07:00 Oxygen Flow Rate 2 09/15/23 06:57 BMI result Body Mass Index 21.0 Const: General: cooperative, healthy appearing, comfortable, no acute distress, well developed, alert, awake and Physically active Orientation/consciousness: patient oriented x3 HEENT: Head: Yes normal to inspection, Yes normocephalic and Yes atraumatic Eyes: General: appearance normal, both eyes and all related structures Neck: Neck: Yes normal visual inspection, Yes full ROM, Yes trachea midline and Yes supple Chest: Chest palpation & inspection: normal inspection of the chest Resp: Other: no appreciable rales, rhonchi, wheezing Cardio: Rate: regular rate Rhythm: regular rhythm GI: Inspection: Yes normal to inspection, No Abdominal wall edema and No distended Palpation (GI): Soft to palpation, not firm, nontender, no guarding and not rigid Skin: General skin exam: no rashes or lesions noted Neuro: General: patient oriented x3, tone normal, moves all extremities and no focal motor deficits Extrem: Other: no appreciable fluctuance, induration, hematoma bilateral groin General: Yes normal to inspection and Yes capillary refill normal Psych: Appearance: grossly normal Objective Data Labs 09/15/23 05:29 09/15/23 05:29 Labs: Laboratory Results - last 24 hr 09/08/23 09/14/23 09/14/23 14:50 13:52 20:29 WBC 14.1 H RBC 4.87 Hgb 10.5 L 9.3 L Hct 32.7 L 28.9 L MCV 67.1 L MCH 21.6 L MCHC 32.1 RDW 18.5 H Plt Count 208 MPV 9.1 L Immature Gran % (Auto) 0.6 H Neut % (Auto) 93.1 H Lymph % (Auto) 4.9 L [place] % (Auto) 1.0 L Eos % (Auto) 0.0 Baso % (Auto) 0.4 Lymph # (Auto) 0.7 L [place] # (Auto) 0.1 Eos # (Auto) 0.0 Baso # (Auto) 0.1 Abs Immat Gran (auto) 0.08 H Absolute Neuts (auto) 13.1 H Absolute Nucleated RBC 0.000 Nucleated RBC % (auto) 0.0 Smear Tech's Comments VERIFIED Sodium 136 Potassium 4.2 Chloride 107 Carbon Dioxide 24 Anion Gap 9 L BUN 9 Creatinine 0.66 Estim Creat Clear Calc 66.6 Estimated GFR > 60 Random Glucose 151 H Calcium 9.4 Blood Type O Positive Antibody Screen NEGATIVE Crossmatch See Detail 09/15/23 05:29 WBC 19.5 H RBC 3.92 L Hgb 8.4 L Hct 26.4 L MCV 67.3 L MCH 21.4 L MCHC 31.8 RDW 18.2 H Plt Count 163 MPV 9.5 Immature Gran % (Auto) 0.6 H Neut % (Auto) 77.8 H Lymph % (Auto) 12.4 L [place] % (Auto) 8.8 Eos % (Auto) 0.1 Baso % (Auto) 0.3 Lymph # (Auto) 2.4 [place] # (Auto) 1.7 H Eos # (Auto) 0.0 Baso # (Auto) 0.1 Abs Immat Gran (auto) 0.11 H Absolute Neuts (auto) 15.2 H Absolute Nucleated RBC 0.020 H Nucleated RBC % (auto) 0.1 Smear Tech's Comments VERIFIED Sodium 135 Potassium 3.7 Chloride 105 Carbon Dioxide 25 Anion Gap 9 L BUN 8 L Creatinine 0.61 Estim Creat Clear Calc 72.0 Estimated GFR > 60 Random Glucose 105 Calcium 8.3 L D Blood Type Antibody Screen Crossmatch Progress Note: A&P Assessment and plan (1) AAA (abdominal aortic aneurysm) without rupture: Status: Acute (2) COPD (chronic obstructive pulmonary disease): Status: Acute (3) Acquired hypothyroidism: Status: Acute (4) Nicotine dependence, cigarettes, uncomplicated: Status: Acute Plan Patient is a 67 Y F with tobacco use, COPD, grave's disease, and known 6 cm abdominal aortic aneurysm, s/p reportedly uneventful repair on 09/13 N: no acute issues CV: abdominal aortic aneurysm, s/p repair R: no acute issues; COPD GI: regular diet : no acute issues H: EBL 400 mL, w/o appreciable hemodynamic instability; transfuse as needed ID: no acute issues E: graves disease, home levothyroxine P: no acute issues D: per surgery, likely d/c later today Quality Stroke Does the patient have a stroke diagnosis?: No VTE Prior VTE?: No VTE Risk Level:: Medical - moderate - high VTE Device Contraindication: N/A - Device Ordered VTE Drug Contraindication: Treatment Not Tolerated
--- NOTE | 2023-09-15 11:11 | P.CDIM_ITS ---
PROVIDER RESPONSE TEXT: To clarify, the appropriate diagnosis supported by the clinical indicators: Acute blood loss anemia QUERY TEXT: PHYSICIAN'S DOCUMENTATION REQUEST Date of Query: 09/15/2023 10:39 AM EDT Patient Name: Yaima Crowder Admit Date: 09/14/2023 Dear Shmuel Day, A review of the medical record indicates additional documentation may be needed. Please review below and update the documentation accordingly. Clinical Indicators: H&H on 09/14/23: 10.5/32.7 H&H on 09/15/23: 8.4/26.4 Operative EBL on 09/14/23 400 ml Based on the above, could you clarify which of the following is the most likely type of anemia you ar e evaluating, treating, and/or monitoring? Acute blood loss anemia Acute blood loss anemia with baseline chronic anemia (specify type) Anemia of chronic disease indicate if neoplastic disease, CKD, or other Chronic iron deficiency anemia due to blood loss Vitamin B12 deficiency anemia indicate etiology, such as intrinsic factor deficiency, malabsorption, transcobalamin II deficiency, dietary, etc Folate deficiency anemia indicate etiology, such as dietary, drug-induced, etc Protein deficiency anemia Other (explain) Clinically unable to determine (explain) Thank you, Elsi Rhodes RN Use of terms such as suspected, likely, concern for, or probable (associated with a specific diagnosi s that is being evaluated, monitored, or treated as if it exists) are acceptable and can be coded in the inpatient se tting, when documented at the time of discharge. Please use your independent medical judgment in providing your response. THIS QUERY IS PART OF THE PERMANENT MEDICAL RECORD
[2023-09-15] MEDS: Lidocaine 4 % Patch ADH..PATCH 2 PATCH TRANSDERMA (11:12)
--- NOTE | 2023-09-15 11:20 | MHC.CM.PN ---
Met with pt to discuss d/c planning: Pt resides with spouse, has no services or DME and is independent with all care needs. Spouse to transport to home: IMM and HCP verified and in chart.
--- NOTE | 2023-09-15 13:00 | P.DS_ITS ---
DS: Providers Provider Date of Service: 09/15/23 Date of admission: 09/14/23 06:02 Primary care physician: Kristin Miranda MD DS: Diagnosis Discharge Diagnosis (1) AAA (abdominal aortic aneurysm) without rupture: Status: Acute (2) COPD (chronic obstructive pulmonary disease): Status: Acute (3) Acquired hypothyroidism: Status: Acute (4) Nicotine dependence, cigarettes, uncomplicated: Status: Acute DS: Summary Hospital Course Hospital Course: Patient underwent endovascular repair with ALTO aortic endograft dated 09/15/2023. No postoperative issues. She was observed in the ICU overnight. Postop day 1 was tolerating regular diet ambulating with no difficulty. She was subsequently discharged. Status at Discharge Functional status at discharge: independent ambulation Overall status at discharge: patient is back to baseline Time Attestation Total time managing care of this patient today: 35 mintues. Discharge Coordination Time (in mins): 35 minutes Quality: Safe Use of Opioids Does Pt have an Active Cancer Diagnosis on the Problem List?: No Quality: Stroke Does the patient have a stroke diagnosis?: No Physical Exam Vital Signs: Vital Signs: Last Vital Signs Temp 97.5 F 09/15/23 08:00 Pulse 84 09/15/23 12:00 Resp 13 09/15/23 12:00 BP 96/48 L 09/15/23 12:00 Pulse Ox 91 L 09/15/23 12:00 O2 Del Method Room Air 09/15/23 12:00 O2 Flow Rate 2 09/15/23 07:00 Oxygen Flow Rate 2 09/15/23 06:57 BMI result Body Mass Index 21.0 DS: Data Data Completed and Pending Labs on day of discharge: Laboratory Results - last 24 hr 09/08/23 09/14/23 09/14/23 14:50 13:52 20:29 WBC 14.1 H RBC 4.87 Hgb 10.5 L 9.3 L Hct 32.7 L 28.9 L MCV 67.1 L MCH 21.6 L MCHC 32.1 RDW 18.5 H Plt Count 208 MPV 9.1 L Immature Gran % (Auto) 0.6 H Neut % (Auto) 93.1 H Lymph % (Auto) 4.9 L [place] % (Auto) 1.0 L Eos % (Auto) 0.0 Baso % (Auto) 0.4 Lymph # (Auto) 0.7 L [place] # (Auto) 0.1 Eos # (Auto) 0.0 Baso # (Auto) 0.1 Abs Immat Gran (auto) 0.08 H Absolute Neuts (auto) 13.1 H Absolute Nucleated RBC 0.000 Nucleated RBC % (auto) 0.0 Smear Tech's Comments VERIFIED Sodium 136 Potassium 4.2 Chloride 107 Carbon Dioxide 24 Anion Gap 9 L BUN 9 Creatinine 0.66 Estim Creat Clear Calc 66.6 Estimated GFR > 60 Random Glucose 151 H Calcium 9.4 Crossmatch See Detail 09/15/23 05:29 WBC 19.5 H RBC 3.92 L Hgb 8.4 L Hct 26.4 L MCV 67.3 L MCH 21.4 L MCHC 31.8 RDW 18.2 H Plt Count 163 MPV 9.5 Immature Gran % (Auto) 0.6 H Neut % (Auto) 77.8 H Lymph % (Auto) 12.4 L [place] % (Auto) 8.8 Eos % (Auto) 0.1 Baso % (Auto) 0.3 Lymph # (Auto) 2.4 [place] # (Auto) 1.7 H Eos # (Auto) 0.0 Baso # (Auto) 0.1 Abs Immat Gran (auto) 0.11 H Absolute Neuts (auto) 15.2 H Absolute Nucleated RBC 0.020 H Nucleated RBC % (auto) 0.1 Smear Tech's Comments VERIFIED Sodium 135 Potassium 3.7 Chloride 105 Carbon Dioxide 25 Anion Gap 9 L BUN 8 L Creatinine 0.61 Estim Creat Clear Calc 72.0 Estimated GFR > 60 Random Glucose 105 Calcium 8.3 L D Crossmatch Discharge Plan Discharge Anticipated Discharge Date/Time: 09/15/23 12:56 Patient Disposition: Home, Self-Care Discharge Diagnosis: Status post endovascular aortic aneurysm repair Referrals: Kristin Miranda MD [Primary Care Provider] - 1 Week Discharge Medications: Continued albuterol sulfate [ProAir HFA] 90 mcg/actuation HFA aerosol inhaler 2 puff inhalation Q6H PRN (Reason: shortness of breath or wheezing) Qty: 8.5 0RF budesonide-formoterol [Symbicort] 160-4.5 mcg/actuation HFA aerosol inhaler 2 inh inhalation BID cholecalciferol (vitamin D3) 50 mcg (2,000 unit) capsule 50 mcg PO DAILY levothyroxine 100 mcg tablet 100 mcg PO DAILY 90 Days Qty: 90 0RF Discharge Orders: Discharge Order (Routine); Ordered 09/15/23 Ordered By: Shmuel Day Diet: Advance to usual diet Activity on Discharge: As tolerated Stand Alone Forms: Patient Portal Discharge page Print Language: Romansh Activity Restrictions/Additional Instructions: You may remove dressings and shower on Take it easy today and you may ambulate around the house. Within 24 hours you can resume normal activity You may climb a flight of stairs as tolerated Do not lift anything heavier than a gallon of milk See Dr. Day in follow-up in approximately 2 weeks time. You should already have an appointment if not please call my office at [phone] Please see above for any change in medications If you notice excessive bleeding from the groin please immediately call my office or return to the emergency room. Care Plan Goals: Surveillance follow-up of aneurysm Health Concerns: Abdominal aortic aneurysm Plan of Treatment: Status post endovascular repair. Will require surveillance follow-up Assessment: Status post endovascular repair of aortic aneurysm
--- NOTE | 2023-09-15 15:33 | HO.POSTANES ---
Post Anesthesia Evaluation Post Anesthesia Evaluation Date of Service: 09/15/23 Vital Signs: Vital Signs Temp Pulse Resp BP Pulse Ox O2 Del Method O2 Flow Rate 09/15/23 12:00 84 13 96/48 L 91 L Room Air 09/15/23 11:00 77 19 101/51 L 89 L Room Air 09/15/23 10:00 79 22 H 95/47 L 88 L Room Air 09/15/23 09:13 78 12 09/15/23 09:00 93 22 H 100/66 91 L Room Air 09/15/23 08:00 97.5 F 77 16 116/65 88 L Room Air 09/15/23 07:00 69 16 101/55 L 93 Nasal Cannula 2 09/15/23 07:00 66 17 119/58 L 94 Nasal Cannula 2 09/15/23 06:57 95 Nasal Cannula 09/15/23 06:00 67 17 102/52 L 95 Nasal Cannula 2 09/15/23 05:00 64 16 126/57 L 95 Nasal Cannula 2 09/15/23 04:00 67 12 101/47 L 95 Nasal Cannula 2 Anesthesia: General Endotracheal-GETA Mental Status: Awake Pain Control: Satisfactory Nausea/Vomiting: None Hydration: Adequate Anesthesia-Related Issues: No Anes. Related Issues
== END 2023-09-15 14:07 | disposition home or self-care (01) | DRG 269 ==
LOC: HO.SSSA 06:04 → HO.ICU 12:24
PROVIDERS: Internal Medicine Critical Care Medicine; Nurse Practitioner; Physician Assistant Medical; Admitting Provider Surgery Vascular Surgery; PCP Internal Medicine; Visit Provider Surgery Vascular Surgery
PROC: 04V03DZ Restriction of Abdominal Aorta with Intraluminal Device, Percutaneous Approach (ICD-10-PCS; principal; 2023-09-14 07:30)
DX: I71.40 Abdominal aortic aneurysm, without rupture, unspecified (principal); D62 Acute posthemorrhagic anemia; F17.210 Nicotine dependence, cigarettes, uncomplicated; E03.9 Hypothyroidism, unspecified; J44.9 Chronic obstructive pulmonary disease, unspecified; Z71.6 Tobacco abuse counseling; Z20.822 Contact with and (suspected) exposure to COVID-19; Z79.890 Hormone replacement therapy; Z79.899 Other long term (current) drug therapy
CPT/HCPCS: 36415; 80048; 85014; 85018; 85025; 85027; 85610; 85730; 86850; 86900; 86901; 86923; 87635; 94640; A4649; C1758; C1769; C1874; C1887; C1894; C2628; J0131; J1100; J1170; J1644; J2250; J2305; J2371; J2405; J2704; J2795; J3010; J3370; J7120; Q9967

== ENCOUNTER → 2023-09-14 06:02 | Outpatient (BNV) | payer MEDICARE, SELFPAY | PROVIDERS: Admitting Provider Surgery Vascular Surgery; PCP Internal Medicine; Visit Provider Internal Medicine Critical Care Medicine | DX: I71.43 Infrarenal abdominal aortic aneurysm, without rupture (principal); J43.9 Emphysema, unspecified; E03.9 Hypothyroidism, unspecified; F17.210 Nicotine dependence, cigarettes, uncomplicated | CPT/HCPCS: 99291 ==

== ENCOUNTER → 2023-09-14 06:02 | Outpatient (BNV) | payer MEDICARE, SELFPAY | PROVIDERS: Admitting Provider Surgery Vascular Surgery; PCP Internal Medicine; Visit Provider Surgery Vascular Surgery | DX: I71.43 Infrarenal abdominal aortic aneurysm, without rupture (principal); J43.9 Emphysema, unspecified; E03.9 Hypothyroidism, unspecified; F17.210 Nicotine dependence, cigarettes, uncomplicated | CPT/HCPCS: 34705; 34812; 99024 ==

== ENCOUNTER 2023-09-23 10:55 | Outpatient (AMB) | payer MEDICARE, SELFPAY ==
--- NOTE | 2023-09-23 11:02 | A.OFFPC_ITS ---
Vital Signs 09/23/23 11:05 Height 5 ft 7 in Weight 115 lb BMI 18.0 BP 112/60 Blood Pressure Location Lt brachial Position Sitting Pulse 75 Pulse Source Pulse Oximeter Pulse Oximetry (%) 100 Oxygen Delivery Method Room Air Intake Visit Reasons: [facility] [place] HDF AAA Intake Note: Pt is here today for HDF [facility] [place] AAA Allergies Penicillins Allergy (Verified 09/23/23 11:17) Hives vancomycin Allergy (Verified 09/23/23 11:17) Itching Bee stings Allergy (Severe, Uncoded 09/23/23 11:17) hives Medication List - Last Reconciled 09/23/23 by Kristin Miranda MD albuterol sulfate 90 mcg/actuation (ProAir HFA) 2 puffs inhalation Q6H PRN cholecalciferol (vitamin D3) 50 mcg PO DAILY crkrimzmxmb-deajvpyll-kgmnuljk 200-62.5-25 mcg (Trelegy Ellipta) 1 ea inhalation DAILY levothyroxine 100 mcg PO DAILY 90 days Tobacco use date assessed: 09/23/23 Fall risk assessment: No Falls in past year Last assessed Fall Risk: 09/23/23 Dental Screening Dental Screen Date: 09/23/23 Did you have a dental visit in the last 12 months?: No Was dental information given to patient?: Patient declined HPI [facility] [place] [facility] AAA HPI Details 68-year-old lady with acquired hypothyro idism, COPD, osteopenia, with history of abdominal aortic aneurysm status post atient endovascular repair with ALTO aortic endograft dated 09/15/2023, no postoperative issues, here today for her hospital discharge follow-up.. She has been feeling better, however she still complains of easy fatigability, and some discomfort over surgical site, and intermittent abdominal bloating. She has iron deficiency, currently not on any iron supplements. Denies any shortness breath or cough however she has continues to smoke cigarettes, with no desire to quit at present time. [facility] Medical History History of abdominal aortic aneurysm Iron deficiency anemia Seasonal allergies History of verrucae (wart) excision (~1973) Nicotine dependence, cigarettes, uncomplicated Osteopenia (~2016) Colon cancer screening Dog bite of finger (~2018) Herpes zoster Colonoscopy refused Urinary, incontinence, stress female COPD (chronic obstructive pulmonary disease) Graves disease Acquired hypothyroidism (~2004) Surgical History (Updated 09/23/23 @ 11:41 by Kristin Miranda MD) History of repair of aneurysm of abdominal aorta H/O excision of ganglion cyst (~1973) Family History Father Diabetes mellitus Mother Diabetes mellitus Brother Bone cancer Daughter No problems noted. Daughter No problems noted. Social History Household Members: Spouse and Children Housing: House Are you a primary floor care technician to a significant other at home: No Do you presently have visiting nurse or other home services: No Alcohol intake: never Patient Tobacco Use Status: Current everyday Tobacco user Tobacco use type: Cigarette Cigarette Packs Per Day: 0.5 Cigarettes Per Day: 10 Years Smoked: 50+ e-Cigarette/Vaping Use: Never Used Second Hand Smoke Exposure: No Substance Use Type: Marijuana service: No Cognitive needs: No Hearing needs: No Vision needs: Yes Questionnaire Thrive Questionnaire Date Thrive assessed: 09/15/23 Review of Systems Const Denies chills, Denies fever(s) and Denies weakness Eyes Denies change in vision ENT Denies dizziness Card Denies chest pain, Denies syncope, Denies rapid heart rate, Denies claudication, Denies leg edema, Denies lightheadedness, Denies palpitations and Denies orthopnea Resp Denies cough, Denies excessive phlegm production and Denies wheezing GI Denies abdominal pain, Denies hematochezia, Denies change in bowel habits, Denies heartburn, Denies nausea and Denies vomiting Denies hematuria, Denies urinary frequency and Denies dysuria Musc Denies numbness and Denies tingling Skin/Breast Denies nail changes and Denies rash Neuro Denies dizziness, Denies syncope, Denies numbness, Denies tingling and Denies weakness Psych Denies depression Endo Denies palpitations Delroy/Lymph Denies easy bleeding and Denies easy bruising Aller/Immun Denies wheezing Physical exam (Primary Care) Vital Signs: Last Vital Signs Pulse 75 09/23/23 11:05 BP 112/60 09/23/23 11:05 Pulse Ox 100 09/23/23 11:05 Oxygen Delivery Method Room Air 09/23/23 11:05 BMI result Body Mass Index 18.0 Tobacco/Smoking Status: Tobacco use Status Tobacco use date assessed 09/23/23 09/23/23 11:03 Patient Tobacco Use Status Current everyday Tobacco 09/23/23 11:03 Tobacco use type Cigarette 09/23/23 11:03 e-Cigarette/Vaping Use Never Used 09/23/23 11:10 Thrive Assessment: Date of Thrive Assessment Date Thrive assessed 09/15/23 09/23/23 11:03 Const General: comfortable, no acute distress and alert Orientation/consciousness: patient oriented x3 HENMT Ears: external ears normal, TM's normal bilaterally and EAC's normal General nose exam: Normal external nose present Mouth: Normal oral and palatal mucosa present, oropharynx normal and moist mucous membranes Eyes General: appearance normal, both eyes and all related structures Pupils: Equal, round and reactive pupils present EOM: EOMs intact bilaterally Neck Neck: Yes full ROM, Yes no lymphadenopathy and Yes supple Chest Other: Dry surgical scar on anterior chest and upper abdomen Resp Effort & Inspection: normal respiratory effort and able to speak in complete sentences Auscultation: clear to auscultation bilaterally Cardio Rate: regular rate Rhythm: regular rhythm Heart sounds: S1 normal heart sound present and S2 normal heart sound present GI Palpation (GI): Soft to palpation, nontender and no masses Auscultation: normal bowel sounds Back/Spine/Pelvis Back: No back tenderness Neuro General: patient oriented x3, gait normal, tone normal, moves all extremities, Normal light touch and pain sensation and no focal motor deficits Cranial nerves: Yes CN's II-XII intact bilaterally and Yes Equal, round and reactive pupils present Cognition (Neuro): normal cognition Extrem General: Yes full ROM, Yes no joint enlargement, Yes no clubbing, cyanosis or edema and Yes no calf tenderness Psych Appearance: grossly normal and well kempt Mental Status: mental status grossly normal Speech and movement: Normal speech and movement present Affect: normal affect Attitude: cooperative Thought process: Normal thought process present Results Reviewed Results Reviewed: Laboratory Tests 03/11/22 09/14/23 08:23 20:29 Hgb 9.3 L Hct 28.9 L yolanda: Yaima Crowder Age/Sex: 68/F : 1955 Unit#: [id number] Attend Dr: Shmuel Day MD Re09/14/23 Status: DIS IN Location: .[facility] 261-1 Disch: 09/15/23 SPEC : [id number] PASCUAL: 09/15/23 STATUS: COMP REQ : [id number] RECD: 09/15/[address]: Shmuel Day MD COMP: 09/15/23 ENTERED: 09/15/[address] [facility] [address]: Kristin Miranda MD ORDERED: CBC Auto Diff, SLIDE REVIEW Test Result Flag Reference WBC 19.5 H 4.8-10.8 X10*3/uL RBC 3.92 L 4.20-5.50 X10*6/uL HGB 8.4 L 12.0-16.0 g/dl HCT 26.4 L 37.0-47.0 % MCV 67.3 L 80.0-98.0 fL MCH 21.4 L 27.0-33.0 pg MCHC 31.8 31.0-35.0 g/dl RDW 18.2 H 11.0-16.0 % PLT 163 160-400 X10*3/uL MPV 9.5 9.4-12.3 fL Neut Pct Auto 77.8 H 45-73 % ImGran Pct Auto 0.6 H 0.0-0.4 % Lymp Pct Auto 12.4 L 20-40 % Sanborn Pct Auto 8.8 2-11 % Eos Pct Auto 0.1 0-4 % Baso Pct Auto 0.3 0-2 % NRBC Pct Auto 0.1 0.0-0.2 /100WBC ANC Neut Abs # 15.2 H 2.0-8.3 x10*3/uL ImGran Abs Auto 0.11 H 0.00-0.03 X10*3/uL Lymph Abs Auto 2.4 1.2-4.9 X10*3/uL Sanborn Abs Auto 1.7 H 0.1-1.2 X10*3/uL Eos Abs Auto 0.0 0.0-0.4 X10*3/uL Baso Abs Auto 0.1 0.0-0.2 X10*3/uL NRBC Abs Auto 0.020 H 0.0-0.012 X10*3/uL SLIDE REVIEW VERIFIED yolanda: Yaima Crowder Age/Sex: 68/F : 1955 Unit#: [id number] Attend Dr: Shmuel Day MD Re09/14/23 Status: DIS IN Location: .[facility] 261-1 Disch: 09/15/23 SPEC : [id number] PASCUAL: 09/15/23 STATUS: COMP REQ : [id number] RECD: 09/15/[address]: Shmuel Day MD COMP: 09/15/23 ENTERED: 09/15/23- OTHR DR: Kristin Miranda MD ORDERED: BMP Test Result Flag Reference Sodium 135 135-145 mmol/L Potassium 3.7 3.3-5.1 mmol/L CL 105 96-108 mmol/L CO2 25 22-29 mmol/L Gap 9 L 12-20 BUN 8 L 9-16 mg/dL Creat 0.61 0.5-1.4 mg/dL Estimated CrCl 72.0 Provided height and weight: 170.18 cm, 53.184 kg. eGFR (calculated from the MDRD study equation) and eCrCl (calculated from the Cockcroft-Gault equation) are based on different parameters and may not yield comparable results. If eCrCl result is absurd, please check patient's height/weight. EGFR > 60 NOTE: For -[place] individuals, multiply the result by 1.210. Chronic Kidney Disease: Estimated GFR < 60 mL/min/1.73m2 Severe Kidney Disease: Estimated GFR < 15 mL/min/1.73m2 Glucose, Random 105 60-115 mg/dL CA 8.3 # L 8.4-10.2 mg/dL Assessment and Plan Assessment & Plan (1) Iron deficiency anemia: Code(s): D50.9 - Iron deficiency anemia, unspecified Qualifiers: Iron deficiency anemia type: unspecified iron deficiency Qualified Code(s): D50.9 - Iron deficiency anemia, unspecified Plan: Repeat CBC and iron profile ordered, and will start iron supplements if indicated. (2) History of abdominal aortic aneurysm: Code(s): Z86.79 - Personal history of other diseases of the circulatory system Plan: Patient currently doing well after surgery, denies any abdominal pain, nausea, does have occasional bloating. Has an appointment already scheduled with her vascular surgeon for follow-up next week (3) COPD (chronic obstructive pulmonary disease): Code(s): J44.9 - Chronic obstructive pulmonary disease, unspecified Qualifiers: COPD type: emphysema Emphysema type: unspecified Qualified Code(s): J43.9 - Emphysema, unspecified Plan: Currently on Trelegy and albuterol inhaler as needed. Not ready to quit smoking, has an appointment for follow-up with Pulmonary next week (4) History of repair of aneurysm of abdominal aorta: Code(s): Z98.890 - Other specified postprocedural states (5) Nicotine dependence, cigarettes, uncomplicated: Code(s): F17.210 - Nicotine dependence, cigarettes, uncomplicated Plan: Patient strongly advised to stop smoking, as smoking damages blood vessels, degenerative of joints and spine, damage to lungs and heart., predisposes to developing certain cancers like lung, breast, bladder, colon. Recommended to try decreasing cigarette use by 1-2 cigarettes a day. Advised to monitor what triggers are for smoking so that this can be discussed on the next office visit. We can discuss different options to quit smoking when ready. Orders: Orders Complete Blood Count Auto Diff 09/23/23 D50.9 - Iron deficiency anemia, unspecified, Z86.79 - Personal history of other diseases of the circulatory system Lipid Panel 09/23/23 D50.9 - Iron deficiency anemia, unspecified, Z86.79 - Personal history of other diseases of the circulatory system Alanine Aminotransferase 09/23/23 D50.9 - Iron deficiency anemia, unspecified, Z86.79 - Personal history of other diseases of the circulatory system IRON PROFILE 09/23/23 D50.9 - Iron deficiency anemia, unspecified, Z86.79 - Personal history of other diseases of the circulatory system Vitamin D 25-OH Total 09/23/23 D50.9 - Iron deficiency anemia, unspecified, Z86.79 - Personal history of other diseases of the circulatory system Aspartate Amino Transferase 09/23/23 D50.9 - Iron deficiency anemia, unspecified, Z86.79 - Personal history of other diseases of the circulatory system Coding Level of Care Code Est Pt Level 4 (19123) Diagnoses Iron deficiency anemia, unspecified iron deficiency anemia type D50.9 Iron deficiency anemia type: unspecified iron deficiency History of abdominal aortic aneurysm Z86.79 Pulmonary emphysema, unspecified emphysema type J43.9 COPD type: emphysema Emphysema type: unspecified History of repair of aneurysm of abdominal aorta Z98.890 Nicotine dependence, cigarettes, uncomplicated F17.210
[2023-09-23 11:05] VITALS: BP 112/60; PULSE 75; O2SAT 100; BMI 18.0
== END 2023-09-23 14:08 | disposition home or self-care (01) ==
PROVIDERS: PCP Internal Medicine; Visit Provider Internal Medicine
DX: D50.9 Iron deficiency anemia, unspecified (principal); Z86.79 Personal history of other diseases of the circulatory system; J43.9 Emphysema, unspecified; Z98.890 Other specified postprocedural states; F17.210 Nicotine dependence, cigarettes, uncomplicated
CPT/HCPCS: 99214

== ENCOUNTER 2023-09-29 12:52 | Outpatient (AMB) | payer MEDICARE, SELFPAY ==
--- NOTE | 2023-09-29 12:59 | A.OFFVIS_ITS ---
Intake Visit Reasons: 2 week follow up AAA repair Intake Note: 2 week follow up AAA repair. Patient states she is feeling good. States the surgery went well and she has no concerns or complaints. Accompanied by: Self / Same As Patient Allergies Penicillins Allergy (Verified 09/29/23 13:06) Hives vancomycin Allergy (Verified 09/29/23 13:06) Itching Bee stings Allergy (Severe, Uncoded 09/23/23 11:17) hives HPI HPI 2 week follow up AAA repair: Details: Very pleasant 68-year-old female presents for follow-up status post endovascular aortic aneurysm repair with Endologix [place] graft. No postprocedure issues. She reports she is doing fairly well. Groins have gone on to heal. She now presents for routine follow-up [facility] Medical History History of abdominal aortic aneurysm Iron deficiency anemia Seasonal allergies History of verrucae (wart) excision (~1973) Nicotine dependence, cigarettes, uncomplicated Osteopenia (~2016) Colon cancer screening Dog bite of finger (~2018) Herpes zoster Colonoscopy refused Urinary, incontinence, stress female COPD (chronic obstructive pulmonary disease) Graves disease Acquired hypothyroidism (~2004) Surgical History History of repair of aneurysm of abdominal aorta H/O excision of ganglion cyst (~1973) Family History Father Diabetes mellitus Mother Diabetes mellitus Brother Bone cancer Daughter No problems noted. Daughter No problems noted. Social History Household Members: Spouse and Children Housing: House Are you a primary care management associate to a significant other at home: No Do you presently have visiting nurse or other home services: No Alcohol intake: never Patient Tobacco Use Status: Current everyday Tobacco user Tobacco use type: Cigarette Cigarette Packs Per Day: 0.5 Cigarettes Per Day: 10 Years Smoked: 50+ e-Cigarette/Vaping Use: Never Used Second Hand Smoke Exposure: No Substance Use Type: Marijuana service: No Cognitive needs: No Hearing needs: No Vision needs: Yes Review of Systems Const All systems reviewed & are unremarkable except as noted in HPI and below Reports no additional complaints ENT Reports Normal hearing present Card Denies chest pain, Denies chest pain at rest, Denies chest pain with activity and Denies pedal edema Resp Denies cough GI Denies abdominal pain Musc Denies abnormal gait, Denies muscle cramps and Denies radiating pain into limb Skin/Breast Denies skin ulcer and Denies wounds Neuro Reports Normal hearing present and Denies abnormal gait Psych Reports no additional complaints Physical Exam Const General: cooperative, healthy appearing and comfortable Orientation/consciousness: oriented to person, oriented to place and oriented to time HEENT Head: Yes normal to inspection Neck Neck: Yes normal visual inspection Carotids: no bruits Chest Chest palpation & inspection: normal inspection of the chest Resp Effort & Inspection: normal respiratory effort and able to speak in complete sentences Auscultation: clear to auscultation bilaterally, no crackles, no rales, no rhonchi and no wheezes Cardio Rate: regular rate Rhythm: regular rhythm Heart sounds: S1 normal heart sound present and S2 normal heart sound present Bruits: no carotid bruits Peripheral pulses: Peripheral pulses 2+ throughout GI Inspection: Yes normal to inspection Skin Other: Bilateral groins well-healed Wounds: no wounds Hair: normal Neuro General: oriented to person, oriented to place and oriented to time Cranial nerves: Yes CN's II-XII intact bilaterally and Yes Normal hearing present Cognition (Neuro): normal cognition Motor exam (neuro): 5/5 motor strength present throughout Extrem Other: venous exam: No significant superficial varicosities or spider telangiectasias, minimal edema General: No clubbing, No cyanosis and No edema Psych Appearance: grossly normal Mental Status: mental status grossly normal Speech and movement: Normal speech and movement present Assessment & Plan Assessment & Plan (1) AAA (abdominal aortic aneurysm) without rupture: Comment: 09/14/2023 - endovascular aortic aneurysm repair with Endologix [place] graft Code(s): I71.40 - Abdominal aortic aneurysm, without rupture, unspecified Category: Medical Qualifiers: Abdominal aorta location: infrarenal aorta Qualified Code(s): I71.43 - Infrarenal abdominal aortic aneurysm, without rupture Plan: In short patient is doing extremely well status post endovascular aortic aneurysm repair she will require [address] scan. We did discuss routine risk factor modification. Thank you for allowing us to assist in her care. Orders: Orders Blood Urea Nitrogen 3 Months Z98.890 - Other specified postprocedural states CT angio abdomen pelvis 3 Months Z98.890 - Other specified postprocedural states Creatinine 3 Months Z98.890 - Other specified postprocedural states Coding Level of Care Code Est Pt Level 4 (15414) Diagnoses Infrarenal abdominal aortic aneurysm (AAA) without rupture I71.43 Abdominal aorta location: infrarenal aorta
== END 2023-09-29 13:31 | disposition home or self-care (01) ==
PROVIDERS: PCP Internal Medicine; Visit Provider Surgery Vascular Surgery
DX: I71.43 Infrarenal abdominal aortic aneurysm, without rupture (principal)
CPT/HCPCS: 99024

== ENCOUNTER → 2023-09-29 12:52 | Outpatient (BNVA) | payer MEDICARE, SELFPAY | PROVIDERS: PCP Internal Medicine; Visit Provider Surgery Vascular Surgery | DX: I71.43 Infrarenal abdominal aortic aneurysm, without rupture (principal); D50.9 Iron deficiency anemia, unspecified; Z86.79 Personal history of other diseases of the circulatory system; Z98.890 Other specified postprocedural states | CPT/HCPCS: 99212 ==

== ENCOUNTER 2023-09-30 07:07 | Outpatient (REF) | payer MEDICARE, SELFPAY ==
[2023-09-30 10:25] LABS: MANUAL DIFF FLAG NO
[2023-09-30 10:38] LABS: Basophils Absolute Auto 0.1 X10*3/uL (0.0-0.2); Basophils Percent Auto 0.8 % (0-2); Eosinophils Absolute Auto 0.3 X10*3/uL (0.0-0.4); Eosinophils Percent Auto 2.8 % (0-4); Hematocrit 34.7 % (37.0-47.0); Hemoglobin 11.1 g/dl (12.0-16.0); Imm Gran Abs Auto 0.03 X10*3/uL (0.00-0.03); Imm Gran Pct Auto 0.3 % (0.0-0.4); Lymphocytes Absolute Auto 1.8 X10*3/uL (1.2-4.9); Lymphocytes Percent Auto 19.8 % (20-40); Mean Corpuscular Hemoglobin 21.3 pg (27.0-33.0); Mean Corpuscular Volume 66.7 fL (80.0-98.0); Mean Platelet Volume 9.2 fL (9.4-12.3); Neutrophils Absolute Auto 5.8 x10*3/uL (2.0-8.3); Neutrophils Percent Auto 65.3 % (45-73); Platelet Count 308 X10*3/uL (160-400); White Blood Count 8.8 X10*3/uL (4.8-10.8)
[2023-09-30 11:12] LABS: Alanine Aminotransferase 8 U/L (0-31); Aspartate Amino Transferase 13 U/L (5-31); Cholesterol 130 mg/dL (<200); HDL Cholesterol 49 mg/dL (>40); Iron 26 mcg/dL (30-160); LDL Cholesterol Calculated 69 mg/dL (<100); Percent Iron Saturation 11 % (15-50); Total Iron Binding Capacity 235 mcg/dL (228-428); Triglycerides 60 mg/dL (<150); Unsaturated Iron Binding 209 ug/dL
[2023-09-30 11:20] LABS: Free T4 (Free Thyroxine) 1.24 ng/dL (0.71-1.85); Vitamin D 25-OH Total 40.4 ng/mL (>30)
== END 2023-09-30 07:08 | disposition home or self-care (01) ==
LOC: HO.HMGCLDS 07:07
PROVIDERS: PCP Internal Medicine; Visit Provider Internal Medicine
DX: D50.9 Iron deficiency anemia, unspecified (principal); E03.9 Hypothyroidism, unspecified; I71.40 Abdominal aortic aneurysm, without rupture, unspecified; M85.80 Other specified disorders of bone density and structure, unspecified site; J43.9 Emphysema, unspecified; F17.210 Nicotine dependence, cigarettes, uncomplicated; N39.3 Stress incontinence (female) (male); Z86.79 Personal history of other diseases of the circulatory system
CPT/HCPCS: 36415; 80061; 82306; 83540; 84439; 84450; 84460; 85025

== ENCOUNTER 2023-11-30 09:06 | Outpatient (AMB) | payer MEDICARE, SELFPAY ==
--- NOTE | 2023-11-29 19:32 | MHC.OFFVIS ---
Vital Signs 11/30/23 09:07 Height 5 ft 7 in Weight 109 lb 2.061 oz BMI 17.1 BP 122/76 Blood Pressure Location Lt brachial Position Sitting Pulse 75 Pulse Source Pulse Oximeter Pulse Oximetry (%) 98 Oxygen Delivery Method Room Air Intake Visit Reasons: COPD Allergies Penicillins Allergy (Verified 11/30/23 09:10) Hives vancomycin Allergy (Verified 11/30/23 09:10) Itching Bee stings Allergy (Severe, Uncoded 11/30/23 09:10) hives HPI HPI COPD: Details: Yaima is a pleasant 68 year old female, current 0.75 ppd smoker with 80+ pack year history with underlying aortic abdominal aneurysm, severe COPD, and Graves disease. She was initially referred by Dr. Day for perioperative pulmonary evaluation for AAA repair completed on 09/14/23. At the last visit she reported suboptimal control on symbicort and was switched to Trelegy with good effect, however patient thought she developed a rash from Trelegy and it was discontinued. She then was switched to Breztri but reports suboptimal control. She discovered prior rash thought to be related to Trelegy was related to antibiotics. She would like to retry Trelegy as she continues with dyspnea on exertion and occasional productive cough with clear sputum. At the last visit, she trialed Chantix but was not successful with smoking cessation. [facility] Medical History History of abdominal aortic aneurysm Iron deficiency anemia Seasonal allergies History of verrucae (wart) excision (~1973) Nicotine dependence, cigarettes, uncomplicated Osteopenia (~2016) Colon cancer screening Dog bite of finger (~2018) Herpes zoster Colonoscopy refused Urinary, incontinence, stress female COPD (chronic obstructive pulmonary disease) Graves disease Acquired hypothyroidism (~2004) Surgical History History of repair of aneurysm of abdominal aorta H/O excision of ganglion cyst (~1973) Family History Father Diabetes mellitus Mother Diabetes mellitus Brother Bone cancer Daughter No problems noted. Daughter No problems noted. Social History Household Members: Spouse and Children Housing: House Are you a primary disabilities caregiver to a significant other at home: No Do you presently have visiting nurse or other home services: No Alcohol intake: never Patient Tobacco Use Status: Current everyday Tobacco user Tobacco use type: Cigarette Cigarette Packs Per Day: 0.5 Cigarettes Per Day: 10 Years Smoked: 50+ e-Cigarette/Vaping Use: Never Used Second Hand Smoke Exposure: No Substance Use Type: Marijuana service: No Cognitive needs: No Hearing needs: No Vision needs: Yes Review of Systems Const Denies chills, Denies excessive sweating, Denies fever(s), Denies headache(s) and Denies night sweats Eyes Denies dry eyes, Denies irritation and Denies itchy eyes ENT Reports Normal hearing present, Denies headache(s), Denies nasal congestion, Denies nasal discharge, Denies post nasal drip and Denies sore throat Card Denies chest pain, Denies chest pain at rest, Denies chest pain with activity, Denies claudication, Denies leg edema, Denies orthopnea and Denies paroxysmal nocturnal dyspnea Resp Denies chest congestion, Denies excessive phlegm production, Denies pain on inspiration, Denies pain with cough and Denies stridor Musc Denies myalgias Neuro Reports Normal hearing present and Denies headache(s) Endo Denies excessive sweating Delroy/Lymph Denies lymphadenopathy Aller/Immun Denies itchy eyes and Denies seasonal rhinorrhea Physical Exam Vital Signs: Last Vital Signs Pulse 75 11/30/23 09:07 BP 122/76 11/30/23 09:07 Pulse Ox 98 11/30/23 09:07 Oxygen Delivery Method Room Air 11/30/23 09:07 BMI result Body Mass Index 17.1 Const General: cooperative, healthy appearing, comfortable, no acute distress, well developed and alert Orientation/consciousness: patient oriented x3 Limitations: no limitations HEENT Head: Yes normal to inspection, Yes normocephalic and Yes atraumatic Ears: hearing grossly normal bilaterally and external ears normal Eyes General: appearance normal, both eyes and all related structures Eyelids: Yes eyelids normal Sclerae: sclerae normal EOM: EOMs intact bilaterally Neck Neck: Yes normal visual inspection and Yes no lymphadenopathy Lymphatic: no lymphadenopathy noted Chest Chest palpation & inspection: normal inspection of the chest Resp Effort & Inspection: normal respiratory effort, able to speak in complete sentences, no audible wheezes, no cough, no stridor, not tachypneic, no tripod positioning and no use of accessory muscles Cardio Jugular venous distension: no JVD Rate: regular rate Rhythm: regular rhythm Skin Other: warm, dry General skin exam: no rashes or lesions noted Neuro General: patient oriented x3 Cranial nerves: Yes Normal hearing present Cognition (Neuro): normal cognition Gait exam (Neuro): Normal gait present Extrem General: Yes normal to inspection, Yes capillary refill normal, Yes no clubbing, cyanosis or edema and Yes no pedal edema Psych Appearance: grossly normal and well kempt Speech and movement: Normal speech and movement present and Clear speech present Affect: normal affect Attitude: cooperative Thought process: Normal thought process present Thought content: Normal thought content present Insight: Good insight present (Psych) Judgement: Good judgement present (Psych) Assessment & Plan Assessment & Plan (1) COPD (chronic obstructive pulmonary disease): Code(s): J44.9 - Chronic obstructive pulmonary disease, unspecified Category: Medical Qualifiers: COPD type: emphysema Emphysema type: unspecified Qualified Code(s): J43.9 - Emphysema, unspecified (2) Nicotine dependence, cigarettes, uncomplicated: Code(s): F17.210 - Nicotine dependence, cigarettes, uncomplicated Category: Medical Plan Yaima reports suboptimal response to Breztri and interested in retrying Trelegy. She will start once she completes Breztri inhaler rx. Patient apart of the lung cancer screening program, last LDCT 12/2022 RADS [address] for next month. Will reach out to coordinator to ensure patient will be scheduled. We discussed smoking cessation and patient not ready to quit at this time. All questions were answered and patient is in agreement of plan. Will follow up in three months or sooner if needed. Medications: New gfhsshzetih-biggukqqk-dlpsbicp 200-62.5-25 mcg (Trelegy Ellipta) 1 inh inhalation DAILY 60 ea 3RF Coding Level of Care Code Est Pt Level 4 (50722) Diagnoses Pulmonary emphysema, unspecified emphysema type J43.9 COPD type: emphysema Emphysema type: unspecified Nicotine dependence, cigarettes, uncomplicated F17.210
[2023-11-30 09:07] VITALS: BP 122/76; PULSE 75; O2SAT 98; BMI 17.1
== END 2023-11-30 09:29 | disposition home or self-care (01) ==
PROVIDERS: PCP Internal Medicine; Visit Provider Nurse Practitioner Family
DX: J43.9 Emphysema, unspecified (principal); F17.210 Nicotine dependence, cigarettes, uncomplicated
CPT/HCPCS: 99214

== ENCOUNTER → 2023-11-30 09:06 | Outpatient (BNVA) | payer MEDICARE, SELFPAY | PROVIDERS: PCP Internal Medicine; Visit Provider Nurse Practitioner Family | DX: J43.9 Emphysema, unspecified (principal); F17.210 Nicotine dependence, cigarettes, uncomplicated | CPT/HCPCS: 99212 ==

== ENCOUNTER 2023-12-18 06:17 | Emergency (ER) | payer MEDICARE, SELFPAY ==
--- NOTE | 2023-12-18 | ECG_ITS ---
Test Reason : chest pain Blood Pressure : / mmHG Vent. Rate : 071 BPM Atrial Rate : 071 BPM P-R Int : 164 ms QRS Dur : 076 ms QT Int : 394 ms P-R-T Axes : 070 044 061 degrees QTc Int : 428 ms Normal sinus rhythm Possible Left atrial enlargement Low voltage QRS Cannot rule out Anterior infarct , age undetermined Abnormal ECG No previous ECGs available Referred By: Generic ED Physician Electronically Signed By:Mohit Curry
--- NOTE | ~2023-12-18 | CT_ITS ---
EXAMINATION: CT ANGIOGRAM OF THE CHEST WITH AND WITHOUT CONTRAST (CT PULMONARY ANGIOGRAM FOR PE) CLINICAL INFORMATION: Reason for Exam Hemoptysis, right-sided chest pain COMPARISON: CT scan of chest from 01/03/2020 TECHNIQUE: Prior to contrast administration, noncontrast localization images were obtained. Subsequently, multidetector volumetric imaging was performed from the thoracic inlet to below the diaphragms following the administration of 65 mL Omnipaque 350 intravenous contrast. No contrast reaction reported Sagittal, coronal, and MIP oblique sagittal reformatted images were obtained on the CT workstation, uploaded to PACS, and reviewed. This CT examination was performed using dose optimization techniques as appropriate, variously including the following: *Automated exposure control *Adjustment of mA and/or kV according to patient size (this includes techniques or standardized protocols for targeted exams where dose is matched to indication/reason for exam; i.e. extremities or head) *Use of iterative reconstruction technique Total exam dose-length product 170 mGy-cm FINDINGS: QUALITY OF STUDY/CONTRAST BOLUS: Satisfactory. PULMONARY ARTERIES: No pulmonary emboli. THORACIC AORTA: No aneurysm. LUNG: There are severe changes of emphysema seen bilaterally. There is large mass in the right upper lobe inseparable from the hilum and precarinal pleura with irregular, lobulated, measured approximately 12 x 5.4 x 7 cm. There is another small mass in the right lower lobe measured 1.7 x 1.9 x 1.3 cm and 0.4 cm nodule seen on image 32 series 8. There is groundglass opacity in the not involved by mass right upper lobe and septal thickening PLEURA: There is pleural thickening in the right upper lobe inseparable from the mass MEDIASTINUM: There is massive mediastinal and right hilar lymphadenopathy surrounding trachea, main right bronchus and inseparable from the mass. Lymphadenopathy surrounding main vessels. No evidence of septal bowing or right heart strain. CORONARY ARTERY CALCIFICATION: None visualized on this study. CHEST WALL/AXILLA: No axillary or internal mammary lymphadenopathy. OSSEOUS STRUCTURES: No acute or suspicious osseous abnormality. UPPER ABDOMEN: Unremarkable. No reflux of contrast into the hepatic veins to suggest elevated right heart pressures. CT/CT angio chest PE protocol IMPRESSION: 1. No evidence of pulmonary embolism. 2. Large mass in the right upper lobe inseparable from the hilum and precarinal pleura with massive mediastinal and right hilar lymphadenopathy. 3. Small mass in the right lower lobe and lung nodule. 4. Severe emphysema. VTE: negative.
[2023-12-18 06:24] VITALS: BP 146/83; PULSE 74; RESP 16; TEMP 36.6; O2SAT 99; BMI 17.6
[2023-12-18 06:47] LABS: MANUAL DIFF FLAG NO
--- NOTE | 2023-12-18 06:49 | ED.GENADULT ---
HPI - General Adult General Chief complaint: Upper Respiratory Symptoms Stated complaint: sob/coughing up blood Time Seen by Provider: 12/18/23 06:47 Source: patient Mode of arrival: ambulatory Limitations: no limitations History of Present Illness ED Provider: Belen GÓMEZ HPI narrative: This is a 68 year old female with history of abdominal aortic aneurysm, iron deficiency anemia, hypothyroidism, graves disease COPD current daily smoker presenting with cough, sob, and hemoptysis x 1 month. She also reports recent worsening night sweats and weight loss in the past month, reports 10-15 pound weight loss since the winter. She also reports left sided sharp rib pain x 1 week after bending over in a chair to pick something off of the ground, has been taking Tylenol with mild relief. She denies fevers, chills, abdominal pain, nausea, vomiting, diarrhea. Related Data Home Medications ?Medication ?Instructions ?Recorded ?Confirmed cholecalciferol (vitamin D3) 50 50 mcg PO DAILY 05/01/20 09/08/23 mcg (2,000 unit) capsule Previous Rx's ?Medication ?Instructions ?Recorded albuterol sulfate 90 mcg/actuation 2 puff inhalation Q6H PRN 08/02/23 aerosol inhaler (ProAir HFA) shortness of breath or wheezing #8.5 grams ferrous fumarate 325 mg (106 mg 325 mg PO DAILY #90 tabs 10/14/23 iron) tablet budesonide 160 mcg-glycopyr 9 2 inh inhalation BID #10.7 grams 10/23/23 mcg-formot 4.8 mcg/actuation HFA inhaler (Breztri Aerosphere) levothyroxine 100 mcg tablet 100 mcg PO DAILY 90 days #90 tabs 11/03/23 fluticasone fur. 200 mcg-umeclid 1 inh inhalation DAILY #60 ea 11/30/23 62.5 mcg-vilant 25 mcg inhalat.powder (Trelegy Ellipta) ipratropium bromide 21 mcg (0.03 2 spray intranasal BID #30 mL 11/30/23 %) nasal spray albuterol sulfate 90 mcg/actuation 2 inh inhalation Q4-6H PRN 12/18/23 breath activated powder inhaler shortness of breath or wheezing #1 ea doxycycline hyclate 100 mg capsule 100 mg PO BID 10 days #20 caps 12/18/23 prednisone 20 mg tablet 20 mg PO DAILY 5 days #5 tabs 12/18/23 Allergies Allergy/AdvReac Type Severity Reaction Status Date / Time Penicillins Allergy Hives Verified 12/18/23 06:25 vancomycin Allergy Itching Verified 12/18/23 06:25 Bee stings Allergy Severe hives Uncoded 12/18/23 06:25 [facility] Past Medical History Medical History (Updated 12/18/23 @ 09:59 by RON Trivedi) History of abdominal aortic aneurysm Iron deficiency anemia Seasonal allergies History of verrucae (wart) excision (~1973) Nicotine dependence, cigarettes, uncomplicated Osteopenia (~2016) Colon cancer screening Dog bite of finger (~2018) Herpes zoster Colonoscopy refused Urinary, incontinence, stress female COPD (chronic obstructive pulmonary disease) Graves disease Acquired hypothyroidism (~2004) Surgical History History of repair of aneurysm of abdominal aorta H/O excision of ganglion cyst (~1973) Family History Family History Father Diabetes mellitus Mother Diabetes mellitus Brother Bone cancer Daughter No problems noted. Daughter No problems noted. Social History Social History Household Members: Spouse and Children Housing: House Are you a primary client care coordinator to a significant other at home: No Do you presently have visiting nurse or other home services: No Alcohol intake: never Patient Tobacco Use Status: Current everyday Tobacco user Tobacco use type: Cigarette Cigarette Packs Per Day: 0.5 Cigarettes Per Day: 10 Years Smoked: 50+ Smoked in Last 30 Days: Yes e-Cigarette/Vaping Use: Never Used Second Hand Smoke Exposure: No Use of substances other than those prescribed or required for medical reasons: Yes Substance Use Type: Marijuana Advance Directives: Yes Advance Directives on File: Yes Advance Directives Date on File: 08/25/23 service: No Cognitive needs: No Hearing needs: No Vision needs: Yes Physical Exam ED Vital Signs: Vital Signs - 24 hr 12/18/23 06:24 12/18/23 08:06 12/18/23 08:07 Temperature 97.9 F Pulse Rate 74 70 Respiratory Rate 16 18 Blood Pressure 146/83 H 143/74 H Pulse Oximetry 99 99 98 Oxygen Delivery Method Room Air Room Air Room Air BMI result Body Mass Index 17.6 vss Appearance: Alert.? Oriented X3.? No acute distress.? Head: Normocephalic, atraumatic, no step-offs or deformities Eyes: Pupils equal, round and reactive to light.? ENT: Pharynx normal.??External ears normal, TMs normal bilaterally and EAC's normal. No pain with manipulation of external ears bilaterally. No mastoid tenderness. Neck: Normal inspection.? Neck supple.? CVS: Normal heart rate and rhythm.? Pulses normal.? Respiratory: No respiratory distress.? Scattered crackles appreciated throughout lung ferro. + ttp over left ribs. Skin: Skin warm and dry.? Normal skin color.? Normal skin turgor.? Extremities: No lower extremity edema.? No calf ttp. 5/5 strength to bilateral upper and lower extremities Neuro: Oriented X 3.? No motor deficit.? No sensory deficit. CN 2-12 intact Course Reevaluation(s) Reevaluation #1: CBC with slight leukocytosis no left shift. Chemistry with no acute findings requiring intervention. Normal lactic acid. Normal troponin, nonischemic EKG. VBG unremarkable. Flu versus COVID versus. CTA of the chest with no evidence of pulmonary embolism and VT negative. Large mass in the right upper lobe inseparable from the hilum and the precarinal pleura with massive mediastinal and right hilar lymphadenopathy. Small mass in the right lower lobe lung nodule. Severe emphysema. I did discuss this case with Hematology-Oncology who recommends me reach out to pulmonology. Call out to pulmonology. I did discuss these results with patient, patient would like to go home and think about things and she will follow up outpatient she reassures me she has follow-up with pulmonology and she will call them today to speak to them about these results. She will also call Hematology-Oncology. She is saturating 8-99% on room air. She appears nontoxic. Since she has been having a cough for a while will cover her with doxycycline and prednisone. Advised prompt Hematology Oncology and pulmonology follow-up. Educated patient on diagnosis and treatment plan, answered all question, patient verbalizes understanding. At this time patient will be discharged home, advised to return with new or worsening symptoms. Educated on worrisome signs and symptoms and when to return. At this time I feel comfortable discharge home. Time: 09:57 Medications Administered Discontinued Medications Generic Name Dose Route Start Last Admin Trade Name Live PRN Reason Stop Dose Admin Sodium Chloride 1,000 mls @ 999 mls/hr 12/18/23 06:45 12/18/23 08:02 Ns IV 12/18/23 07:45 999 mls/hr .Q1H1M STA Administration Iohexol 100 ml 12/18/23 08:04 12/18/23 08:05 Iohexol 350 Mg/Ml 100 Ml Infus..Btl IV 12/18/23 08:05 65 ml ONCE ONE Administration Medical Decision Making Medical Decision Making MDM Narrative: 68 year old female with history of COPD, current smoker presenting with cough, hemoptysis, and sob x 1 month, associated night sweats and weight loss. Also reports left sided rib pain x1 week after reaching for something on the ground from a chair. PE scattered crackles appreciated throughout lung ferro. + ttp over left ribs. Hx and PE concerning for lung malignancy versus COPD versus pneumonia. Also considering TB, pulmonary embolism. Rib pain likely contusion versus acute fracture. Unlikely ACS, dissection, acute respiratory distress, threat to airway. Plan - labs, imaging, EKG Differential Diagnosis Differential Diagnoses: The differential diagnosis associated with the presentation includes Hx and PE concerning for lung malignancy versus COPD versus pneumonia. Also considering TB, pulmonary embolism. Rib pain likely contusion versus acute fracture. Unlikely ACS, dissection, acute respiratory distress, threat to airway. Admission/Observation Consideration of admission/observation: Escalation of care including admission/observation considered possible Consult Healthcare Provider Management of the patient was discussed with: Classics Professor (Hem/Onc and pulmonology ) Lab Data 12/18/23 06:42 12/18/23 06:42 Labs: Lab Results 12/18/23 12/18/23 12/18/23 Range/Units 06:42 07:09 07:10 WBC 13.6 H (4.8-10.8) X10*3/uL RBC 5.94 H (4.20-5.50) X10*6/uL Hgb 11.6 L (12.0-16.0) g/dl Hct 37.2 (37.0-47.0) % MCV 62.6 L (80.0-98.0) fL MCH 19.5 L (27.0-33.0) pg MCHC 31.2 (31.0-35.0) g/dl RDW 20.8 H (11.0-16.0) % Plt Count 346 (160-400) X10*3/uL MPV 8.9 L (9.4-12.3) fL Immature Gran % (Auto) 1.0 H (0.0-0.4) % Neut % (Auto) 76.3 H (45-73) % Lymph % (Auto) 13.3 L (20-40) % [place] % (Auto) 8.0 (2-11) % Eos % (Auto) 0.6 (0-4) % Baso % (Auto) 0.8 (0-2) % Lymph # (Auto) 1.8 (1.2-4.9) X10*3/uL [place] # (Auto) 1.1 (0.1-1.2) X10*3/uL Eos # (Auto) 0.1 (0.0-0.4) X10*3/uL Baso # (Auto) 0.1 (0.0-0.2) X10*3/uL Abs Immat Gran (auto) 0.13 H (0.00-0.03) X10*3/uL Absolute Neuts (auto) 10.4 H (2.0-8.3) x10*3/uL Absolute Nucleated RBC 0.000 (0.0-0.012) X10*3/uL Nucleated RBC % (auto) 0.0 (0.0-0.2) /100WBC Smear Path Review SEE NOTE APTT 28.0 (26.0-36.8) SEC VBG pH (7.32-7.43) VBG pCO2 mmHg VBG pO2 mmHg VBG HCO3 (22-26) mmol/L VBG O2 Saturation % VBG Base Excess mmol/L Sodium 134 L (135-145) mmol/L Potassium 4.1 (3.3-5.1) mmol/L Chloride 100 (96-108) mmol/L Carbon Dioxide 25 (22-29) mmol/L Anion Gap 13 (12-20) BUN 11 (9-16) mg/dL Creatinine 0.74 (0.5-1.4) mg/dL Estim Creat Clear Calc 55.3 Estimated GFR > 60 Random Glucose 116 H (60-115) mg/dL Lactic Acid 1.4 (0.5-2.0) mmol/L Calcium 10.1 D (8.4-10.2) mg/dL Magnesium 2.2 (1.6-2.6) mg/dL Total Bilirubin 0.7 (0.0-1.0) mg/dL AST 15 (5-31) U/L ALT 11 (0-31) U/L Alkaline Phosphatase 85 (39-117) U/L Troponin I High Sens < 2.7 (<3.5-17.0) ng/L Total Protein 8.5 H (6.5-8.0) g/dL Albumin 4.2 (3.5-5.0) g/dL Lipase 36 (8-78) U/L Influenza Type A (PCR) NEGATIVE (Negative) Influenza Type B (PCR) NEGATIVE (Negative) RSV RNA Qual (PCR) NEGATIVE (Negative) SARS-CoV-2 RNA (RT-PCR) NEGATIVE (Negative) 12/18/23 Range/Units 07:14 WBC (4.8-10.8) X10*3/uL RBC (4.20-5.50) X10*6/uL Hgb (12.0-16.0) g/dl Hct (37.0-47.0) % MCV (80.0-98.0) fL MCH (27.0-33.0) pg MCHC (31.0-35.0) g/dl RDW (11.0-16.0) % Plt Count (160-400) X10*3/uL MPV (9.4-12.3) fL Immature Gran % (Auto) (0.0-0.4) % Neut % (Auto) (45-73) % Lymph % (Auto) (20-40) % [place] % (Auto) (2-11) % Eos % (Auto) (0-4) % Baso % (Auto) (0-2) % Lymph # (Auto) (1.2-4.9) X10*3/uL [place] # (Auto) (0.1-1.2) X10*3/uL Eos # (Auto) (0.0-0.4) X10*3/uL Baso # (Auto) (0.0-0.2) X10*3/uL Abs Immat Gran (auto) (0.00-0.03) X10*3/uL Absolute Neuts (auto) (2.0-8.3) x10*3/uL Absolute Nucleated RBC (0.0-0.012) X10*3/uL Nucleated RBC % (auto) (0.0-0.2) /100WBC Smear Path Review APTT (26.0-36.8) SEC VBG pH 7.36 (7.32-7.43) VBG pCO2 47 mmHg VBG pO2 32 mmHg VBG HCO3 27 H (22-26) mmol/L VBG O2 Saturation 47.0 % VBG Base Excess 1.2 mmol/L Sodium (135-145) mmol/L Potassium (3.3-5.1) mmol/L Chloride (96-108) mmol/L Carbon Dioxide (22-29) mmol/L Anion Gap (12-20) BUN (9-16) mg/dL Creatinine (0.5-1.4) mg/dL Estim Creat Clear Calc Estimated GFR Random Glucose (60-115) mg/dL Lactic Acid (0.5-2.0) mmol/L Calcium (8.4-10.2) mg/dL Magnesium (1.6-2.6) mg/dL Total Bilirubin (0.0-1.0) mg/dL AST (5-31) U/L ALT (0-31) U/L Alkaline Phosphatase (39-117) U/L Troponin I High Sens (<3.5-17.0) ng/L Total Protein (6.5-8.0) g/dL Albumin (3.5-5.0) g/dL Lipase (8-78) U/L Influenza Type A (PCR) (Negative) Influenza Type B (PCR) (Negative) RSV RNA Qual (PCR) (Negative) SARS-CoV-2 RNA (RT-PCR) (Negative) Critical Care Time Critical Care Time Critical Care Time: Yes Total Critical Care Time: 35 Attestation: I attest to this time spent taking care of the patient, obtaining history, physical, reviewing labs, imaging, speaking to my attending, specialist or hospitalist. Discharge Plan Discharge Clinical Impression: Bronchitis, Mass of right lung, Hemoptysis Patient Disposition: Home, Self-Care Instructions: Acute Bronchitis (ED), Hemoptysis (ED), How Your Lungs Work (ED), Needle Biopsy (DC) Additional Instructions: Take your medications as prescribed. If you were prescribed antibiotics today, it is important that you take your medication to their entirety, do not skip any doses, do not finish them early. Follow-up with your primary care provider this week. Return to the emergency department with new or worsening symptoms. Such as fevers, chills, chest pain, shortness of breath, nausea, vomiting, dizziness, headache, vision changes, lethargy In case of emergency call 911 You were noted to have a large mass in the right upper lobe and a small mass in the right lower lobe of your lungs, usually the next step is following up with specialists and they will likely do a biopsy to see what type of mass you have. Please follow-up with pulmonology and Hematology/Oncology. CT/CT angio chest PE protocol IMPRESSION: 1. No evidence of pulmonary embolism. 2. Large mass in the right upper lobe inseparable from the hilum and precarinal pleura with massive mediastinal and right hilar lymphadenopathy. 3. Small mass in the right lower lobe and lung nodule. 4. Severe emphysema. VTE: negative. Prescriptions: New doxycycline hyclate 100 mg capsule 100 mg PO BID 10 Days Qty: 20 0RF prednisone 20 mg tablet 20 mg PO DAILY 5 Days Qty: 5 0RF albuterol sulfate 90 mcg/actuation aerosol powdr breath activated 2 inh inhalation Q4-6H PRN (Reason: shortness of breath or wheezing) Qty: 1 0RF No Action albuterol sulfate [ProAir HFA] 90 mcg/actuation HFA aerosol inhaler 2 puff inhalation Q6H PRN (Reason: shortness of breath or wheezing) Qty: 8.5 0RF ferrous fumarate 325 mg (106 mg iron) tablet 325 mg PO DAILY Qty: 90 0RF Breztri Aerosphere 160-9-4.8 mcg/actuation HFA aerosol inhaler 2 inh inhalation BID Qty: 10.7 3RF levothyroxine 100 mcg tablet 100 mcg PO DAILY 90 Days Qty: 90 0RF cholecalciferol (vitamin D3) 50 mcg (2,000 unit) capsule 50 mcg PO DAILY Trelegy Ellipta 200-62.5-25 mcg blister with device 1 inh inhalation DAILY Qty: 60 3RF ipratropium bromide 21 mcg (0.03 %) spray,non-aerosol 2 spray intranasal BID Qty: 30 0RF Rx Instructions: administer into each nostril Referrals: [facility] [place] Pulmonology Services [Provider Group] - 1 day [facility] [place] Oncology/Hematology [Provider Group] - 1 day Kristin Miranda MD [Primary Care Provider] - 2 days Stand Alone Forms: Work/School Release Print Language: Guamanian
[2023-12-18 06:52] LABS: Basophils Absolute Auto 0.1 X10*3/uL (0.0-0.2); Basophils Percent Auto 0.8 % (0-2); Eosinophils Absolute Auto 0.1 X10*3/uL (0.0-0.4); Eosinophils Percent Auto 0.6 % (0-4); Hematocrit 37.2 % (37.0-47.0); Hemoglobin 11.6 g/dl (12.0-16.0); Imm Gran Abs Auto 0.13 X10*3/uL (0.00-0.03); Lymphocytes Absolute Auto 1.8 X10*3/uL (1.2-4.9); Lymphocytes Percent Auto 13.3 % (20-40); Mean Corpuscular HGB Conc 31.2 g/dl (31.0-35.0); Mean Corpuscular Hemoglobin 19.5 pg (27.0-33.0); Mean Platelet Volume 8.9 fL (9.4-12.3); Monocytes Absolute Auto 1.1 X10*3/uL (0.1-1.2); Neutrophils Absolute Auto 10.4 x10*3/uL (2.0-8.3); Neutrophils Percent Auto 76.3 % (45-73); Platelet Count 346 X10*3/uL (160-400); Red Blood Count 5.94 X10*6/uL (4.20-5.50); Red Cell Distribution Width 20.8 % (11.0-16.0); White Blood Count 13.6 X10*3/uL (4.8-10.8)
[2023-12-18 06:53] LABS: Mean Corpuscular Volume 62.6 fL (80.0-98.0)
[2023-12-18 07:00] LABS: Alanine Aminotransferase 11 U/L (0-31); Albumin Level 4.2 g/dL (3.5-5.0); Alkaline Phosphatase 85 U/L (39-117); Anion Gap 13 (12-20); Aspartate Amino Transferase 15 U/L (5-31); Bilirubin Total 0.7 mg/dL (0.0-1.0); Blood Urea Nitrogen 11 mg/dL (9-16); Calcium 10.1 mg/dL (8.4-10.2); Carbon Dioxide 25 mmol/L (22-29); Chloride 100 mmol/L (96-108); Creatinine Clr Calc Pharmacy 55.3; Estimated Glomerular Filt Rate > 60; Glucose Random 116 mg/dL (60-115); Potassium 4.1 mmol/L (3.3-5.1); Sodium 134 mmol/L (135-145); Total Protein 8.5 g/dL (6.5-8.0)
[2023-12-18 07:08] LABS: Troponin-I High Sensitivity < 2.7 ng/L (<3.5-17.0)
[2023-12-18 07:22] LABS: VBG Base Excess 1.2 mmol/L; VBG HCO3 27 mmol/L (22-26); VBG pCO2 47 mmHg; VBG pH 7.36 (7.32-7.43); VBG pO2 32 mmHg
[2023-12-18 07:23] LABS: Venous Blood Gas Refer to POC result
[2023-12-18 07:29] LABS: Lactic Acid 1.4 mmol/L (0.5-2.0)
[2023-12-18 07:33] LABS: Lipase 36 U/L (8-78); Magnesium 2.2 mg/dL (1.6-2.6)
[2023-12-18] MEDS: 0.9 % Sodium Chloride 1,000 ML 999 ML IV (08:02)
[2023-12-18] MEDS: iohexoL 350 MG/ML 100 ML INFUS..BTL IV (08:05)
[2023-12-18 08:06] VITALS: O2SAT 99
[2023-12-18 08:06] LABS: Influenza A PCR NEGATIVE (Negative); Influenza B PCR NEGATIVE (Negative); Resp Syncy Virus RNA Qual PCR NEGATIVE (Negative); SARS COV2 PCR INHOUSE NEGATIVE (Negative)
[2023-12-18 08:07] VITALS: BP 143/74; PULSE 70; RESP 18; O2SAT 98
[2023-12-18 10:03] VITALS: BP 130/78; PULSE 76; RESP 18; TEMP 36.6; O2SAT 100
== END 2023-12-18 10:15 | disposition home or self-care (01) ==
PROVIDERS: Emergency Medicine Emergency Medical Services; Emergency Provider Emergency Medicine; PCP Internal Medicine
DX: J40 Bronchitis, not specified as acute or chronic (principal); R91.8 Other nonspecific abnormal finding of lung field; R04.2 Hemoptysis; Z03.818 Encounter for observation for suspected exposure to other biological agents ruled out; R05.9 Cough, unspecified; R06.02 Shortness of breath; J44.9 Chronic obstructive pulmonary disease, unspecified; F17.210 Nicotine dependence, cigarettes, uncomplicated
CPT/HCPCS: 0241U; 36415; 71275; 80053; 82803; 83605; 83690; 83735; 84484; 85025; 85730; 87040; 93005; 99284; 99285; Q9967

== ENCOUNTER → 2023-12-18 06:39 | Outpatient (BNV) | payer MEDICARE, SELFPAY | PROVIDERS: Emergency Provider Emergency Medicine; PCP Internal Medicine; Visit Provider Internal Medicine Cardiovascular Disease | DX: R94.31 Abnormal electrocardiogram [ECG] [EKG] (principal) | CPT/HCPCS: 93010 ==

== ENCOUNTER 2023-12-24 10:15 | Outpatient (REF) | payer MEDICARE, SELFPAY ==
--- NOTE | ~2023-12-24 | CT_ITS ---
EXAMINATION: CT ANGIOGRAM ABDOMEN AND PELVIS CLINICAL INFORMATION: Abdominal aortic aneurysm, status post endograft repair COMPARISON: CTA abdomen from 08/21/2023. CTA chest from 12/18/2023 TECHNIQUE: Multiple axial images were obtained through the abdomen and pelvis following the administration of 80 mL of Omnipaque 350 intravenous contrast. Noncontrast and arterial phase images were obtained Images were reviewed on a dedicated 3-D workstation. This CT examination was performed using dose optimization techniques as appropriate, variously including the following: *Automated exposure control *Adjustment of mA and/or kV according to patient size (this includes techniques or standardized protocols for targeted exams where dose is matched to indication/reason for exam; i.e. extremities or head) *Use of iterative reconstruction technique DLP: 394 mGy-cm FINDINGS: VASCULAR: ABDOMINAL AORTA: There is a fusiform infrarenal abdominal aortic aneurysm. There is been interval placement of an abdominal aortic to bilateral common iliac artery bifurcated stent graft. The stent graft is widely patent. Aneurysm sac has probably decreased in size on transaxial imaging, measuring 5.7 x 4.3 cm, previously measuring 5.7 x 5.0 cm. No evidence of endoleak on the arterial phase images RIGHT LOWER EXTREMITY: Right common iliac artery stent graft limb is patent and normal caliber. The external iliac, internal iliac and visualized femoral arteries are normal caliber and patent. LEFT LOWER EXTREMITY: Left common iliac artery stent graft limb is patent and normal caliber. The external iliac, internal iliac and visualized femoral arteries are normal caliber and patent. CELIOMESENTERIC ARTERIES: Celiac artery and superior mesenteric artery are widely patent. 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 RENAL ARTERIES: Widely patent. NONVASCULAR: Lung Bases: Emphysematous changes seen in the lung bases. There is a spiculated mass in the right lower lobe measuring 2.0 x 1.2 cm which appears stable compared to the recent CTA of the chest. This is new compared to the CT of the abdomen from 08/21/2023 Liver, Gallbladder and Biliary Tree: There is a hypodense mass within the left lobe of the liver measuring 4.2 x 3.6 cm which was present on the recent CT of the chest but is new compared to the CT of the abdomen from 08/21/2023. Finding is concerning for new metastasis. The gallbladder is unremarkable with no evidence of radiopaque gallstones, gallbladder wall thickening, or obvious pericholecystic inflammatory changes. Pancreas: Unremarkable. Spleen: Unremarkable. Adrenal Glands: There is a new 2.8 x 1.8 cm left adrenal gland nodule concerning for metastasis. Kidneys and Ureters: The kidneys are normal in size, shape, and attenuation. No hydronephrosis, hydroureter, or calculi seen. No perinephric stranding. Bladder: There is a 2.4 x 1.8 cm hyperdense nodule in the right posterior aspect of the urinary bladder. This may have been present on the prior CT scan however is better visualized today due to improved distention of the bladder. Gastrointestinal Tract: The small and large bowel are unremarkable. The appendix is unremarkable. Abdominal Wall: No significant hernia is appreciated. Lymph Nodes: Normal. Pelvic Viscera: The uterus and adnexa are unremarkable. Osseous Structures: Unremarkable. CT/CT angio abdomen pelvis IMPRESSION: 1. Fusiform infrarenal abdominal aortic aneurysm with interval endograft repair. Aneurysm sac is slightly decreased in size. No evidence of endoleak. 2. Spiculated mass in the right lower lobe of the lung which is stable compared to the recent CTA of the chest. This is new compared to the CT of the abdomen from 08/21/2023. Findings are concerning for metastatic disease. 3. Hypodense mass in the left lobe of the liver which is new compared to the prior exam and concerning for metastasis. 4. New left adrenal gland nodule which is also concerning for metastasis. 5. Hyperdense nodule in the urinary bladder as described above.
[2023-12-24] MEDS: iohexoL 350 MG/ML 100 ML INFUS..BTL IV (10:39)
== END 2023-12-24 10:16 | disposition home or self-care (01) ==
LOC: HO.CT 10:15
PROVIDERS: PCP Student in an Organized Health Care Education/Training Program; Visit Provider Surgery Vascular Surgery
DX: Z98.890 Other specified postprocedural states (principal)
CPT/HCPCS: 74174; Q9967

== ENCOUNTER 2023-12-28 10:10 | Outpatient (AMB) | payer MEDICARE, SELFPAY ==
[2023-12-28 10:12] VITALS: BP 118/72; PULSE 88; O2SAT 99; BMI 18.0
--- NOTE | 2023-12-28 10:12 | MHC.OFFVIS ---
Vital Signs 12/28/23 10:12 Height 5 ft 6 in Weight 111 lb 5.335 oz BMI 18.0 BP 118/72 Blood Pressure Location Rt brachial Position Sitting Pulse 88 Pulse Source Pulse Oximeter Pulse Oximetry (%) 99 Oxygen Delivery Method Room Air Intake Visit Reasons: COPD/ [place] [place] Allergies Penicillins Allergy (Verified 12/28/23 11:26) Hives vancomycin Allergy (Verified 12/28/23 11:26) Itching Bee stings Allergy (Severe, Uncoded 12/28/23 11:26) hives HPI HPI COPD/ [place] [place] Details: Yaima is a pleasant 68 year old female, current 0.75 ppd smoker with 80+ pack year history with underlying aortic abdominal aneurysm, severe COPD, Graves disease and recent AAA repair on 09/14/[address] Day. At the last visit, she was switched from Breztri to Trelegy due to suboptimal effect but unfortunately patient was unable to obtain. She stated she will continue Breztri until completes prescription then will restart Trelegy. Since the last visit, patient was [place] [facility] [place] due to worsening dyspnea on exertion, productive cough with yellow blood tinged sputum and wheezing. CTA negative for PE, however significant RUL mass/consolidation as well as a nodule of the RLL. She was discharged on doxycyline 100 mg BID x 10 days as well as prednisone. Our office was called from ED to inform us of new CTA finding and prescribed vantin in addition to doxy/prednisone to treat for pneumonia. Today patient reports overall improvement. She continues to report productive cough occasionally blood tinged, dyspnea and wheezing. Of note, she had dental work performed around the time of the ED evaluation and has been had multiple exposures with her house being painted, performing yardwork as well as having her carpets taken out. She also continues to smoke 3/4 ppd. [facility] Medical History (Updated 12/28/23 @ 11:34 by Sharon Posada MD) History of abdominal aortic aneurysm Iron deficiency anemia Seasonal allergies History of verrucae (wart) excision (~1973) Nicotine dependence, cigarettes, uncomplicated Osteopenia (~2016) Colon cancer screening Dog bite of finger (~2018) Herpes zoster Colonoscopy refused Urinary, incontinence, stress female COPD (chronic obstructive pulmonary disease) Graves disease Acquired hypothyroidism (~2004) Surgical History (Updated 12/28/23 @ 11:34 by Sharon Posada MD) History of repair of aneurysm of abdominal aorta H/O excision of ganglion cyst (~1973) Family History Father Diabetes mellitus Mother Diabetes mellitus Brother Bone cancer Daughter No problems noted. Daughter No problems noted. Social History (Updated 12/28/23 @ 11:26 by Pat Gaytan) Household Members: Spouse and Children Housing: House Are you a primary career center advisor to a significant other at home: No Do you presently have visiting nurse or other home services: No Alcohol intake: never Patient Tobacco Use Status: Current everyday Tobacco user Tobacco use type: Cigarette Cigarette Packs Per Day: 0.5 Years Smoked: 50+ e-Cigarette/Vaping Use: Never Used Second Hand Smoke Exposure: No Substance Use Type: Marijuana Advance Directives Date on File: 08/25/23 service: No Current occupational status: retired Gender identity: Female Cognitive needs: No Hearing needs: No Vision needs: Yes Review of Systems Const Denies chills, Denies excessive sweating, Denies fever(s), Denies headache(s) and Denies night sweats Eyes Denies dry eyes, Denies irritation and Denies itchy eyes ENT Reports Normal hearing present, Denies headache(s), Denies nasal congestion, Denies nasal discharge, Denies post nasal drip and Denies sore throat Card Denies chest pain, Denies chest pain at rest, Denies chest pain with activity, Denies claudication, Denies leg edema, Denies orthopnea and Denies paroxysmal nocturnal dyspnea Resp Denies chest congestion, Denies excessive phlegm production and Denies stridor Musc Denies myalgias Neuro Reports Normal hearing present and Denies headache(s) Endo Denies excessive sweating Delroy/Lymph Denies lymphadenopathy Aller/Immun Denies itchy eyes and Denies seasonal rhinorrhea Physical Exam Vital Signs: Last Vital Signs Pulse 88 12/28/23 10:12 BP 118/72 12/28/23 10:12 Pulse Ox 99 12/28/23 10:12 Oxygen Delivery Method Room Air 12/28/23 10:12 BMI result Body Mass Index 18.0 Const General: cooperative, comfortable, no acute distress and alert Orientation/consciousness: patient oriented x3 Limitations: no limitations HEENT Head: Yes normal to inspection, Yes normocephalic and Yes atraumatic Ears: hearing grossly normal bilaterally and external ears normal Eyes General: appearance normal, both eyes and all related structures Eyelids: Yes eyelids normal Sclerae: sclerae normal EOM: EOMs intact bilaterally Neck Neck: Yes normal visual inspection and Yes no lymphadenopathy Lymphatic: no lymphadenopathy noted Chest Chest palpation & inspection: normal inspection of the chest Resp Other: wet cough throughout visit, no wheezing, crackles appreciated. Effort & Inspection: normal respiratory effort, able to speak in complete sentences, no audible wheezes, no stridor, not tachypneic, no tripod positioning and no use of accessory muscles Auscultation: no crackles, no rhonchi, no wheezes and diminished lung sounds Cardio Jugular venous distension: no JVD Rate: regular rate Rhythm: regular rhythm Skin Other: warm, dry General skin exam: no rashes or lesions noted Neuro General: patient oriented x3 Cranial nerves: Yes Normal hearing present Cognition (Neuro): normal cognition Gait exam (Neuro): Normal gait present Extrem General: Yes normal to inspection, Yes capillary refill normal, Yes no clubbing, cyanosis or edema and Yes no pedal edema Psych Appearance: grossly normal and well kempt Speech and movement: Normal speech and movement present and Clear speech present Affect: normal affect Attitude: cooperative Thought process: Normal thought process present Thought content: Normal thought content present Insight: Good insight present (Psych) Judgement: Good judgement present (Psych) Results Reviewed Results Reviewed: [address] [address] [address] Scan Report Signed Patient: Yaima Crowder MR#: [id number] : 1955 Acct:[id number] Age/Sex: 68 / F ADM Date: 12/18/23 Loc: .ED Attending Dr: Ordering Physician: Vivek Su MD Date of Service: 12/18/23 Procedure(s): CT angio chest PE protocol Accession Number(s): [id number] cc: Kristin Miranda MD; Vivek Su MD~ EXAMINATION: CT ANGIOGRAM OF THE CHEST WITH AND WITHOUT CONTRAST (CT PULMONARY ANGIOGRAM FOR PE) CLINICAL INFORMATION: Reason for Exam Hemoptysis, right-sided chest pain COMPARISON: CT scan of chest from 01/03/2020 TECHNIQUE: Prior to contrast administration, noncontrast localization images were obtained. Subsequently, multidetector volumetric imaging was performed from the thoracic inlet to below the diaphragms following the administration of 65 mL Omnipaque 350 intravenous contrast. No contrast reaction reported Sagittal, coronal, and MIP oblique sagittal reformatted images were obtained on the CT workstation, uploaded to PACS, and reviewed. This CT examination was performed using dose optimization techniques as appropriate, variously including the following: *Automated exposure control *Adjustment of mA and/or kV according to patient size (this includes techniques or standardized protocols for targeted exams where dose is matched to indication/reason for exam; i.e. extremities or head) *Use of iterative reconstruction technique Total exam dose-length product 170 mGy-cm FINDINGS: QUALITY OF STUDY/CONTRAST BOLUS: Satisfactory. PULMONARY ARTERIES: No pulmonary emboli. THORACIC AORTA: No aneurysm. LUNG: There are severe changes of emphysema seen bilaterally. There is large mass in the right upper lobe inseparable from the hilum and precarinal pleura with irregular, lobulated, measured approximately 12 x 5.4 x 7 cm. There is another small mass in the right lower lobe measured 1.7 x 1.9 x 1.3 cm and 0.4 cm nodule seen on image 32 series 8. There is groundglass opacity in the not involved by mass right upper lobe and septal thickening PLEURA: There is pleural thickening in the right upper lobe inseparable from the mass MEDIASTINUM: There is massive mediastinal and right hilar lymphadenopathy surrounding trachea, main right bronchus and inseparable from the mass. Lymphadenopathy surrounding main vessels. No evidence of septal bowing or right heart strain. CORONARY ARTERY CALCIFICATION: None visualized on this study. CHEST WALL/AXILLA: No axillary or internal mammary lymphadenopathy. OSSEOUS STRUCTURES: No acute or suspicious osseous abnormality. UPPER ABDOMEN: Unremarkable. No reflux of contrast into the hepatic veins to suggest elevated right heart pressures. CT/CT angio chest PE protocol IMPRESSION: 1. No evidence of pulmonary embolism. 2. Large mass in the right upper lobe inseparable from the hilum and precarinal pleura with massive mediastinal and right hilar lymphadenopathy. 3. Small mass in the right lower lobe and lung nodule. 4. Severe emphysema. VTE: negative. Dictated By: Talita Johnson MD Signed By: <Electronically signed by Talita Johnson MD in OV> 12/18/23 0844 DD/ 0755 TD/TT: Breast Surgeon: Assessment & Plan Assessment & Plan (1) COPD (chronic obstructive pulmonary disease): Code(s): J44.9 - Chronic obstructive pulmonary disease, unspecified Category: Medical Qualifiers: COPD type: emphysema Emphysema type: unspecified Qualified Code(s): J43.9 - Emphysema, unspecified (2) Nicotine dependence, cigarettes, uncomplicated: Comment: (current 1.5 ppd smoker with 80+ pack year history) Code(s): F17.210 - Nicotine dependence, cigarettes, uncomplicated Category: Medical (3) Lung mass: Code(s): R91.8 - Other nonspecific abnormal finding of lung field Category: Medical Plan Had long discussion with Yaima regarding chest CT. She reports improvements since discharge, today is the last day of both doxycyline and vantin. She is aware if symptoms begin to worsen, to call the office and will obtain CXR. At this time, patient has been treated for pneumonia, and will repeat chest CT mid January to assess for resolution. We did discuss the possibility that there may be an underlying malignancy, although her LDCT from 12/28 only revealed a 4mm nodule of the RLL. She was referred to oncology from the ED and has a consultation after this appointment. We discussed smoking cessation and patient not ready to quit at this time. All questions were answered and patient is in agreement of plan. Will follow up to review repeat chest CT or sooner if needed. Orders: Orders CT chest wo IV con 4 Weeks R91.8 - Other nonspecific abnormal finding of lung field Medications: New ipratropium-albuterol 0.5 mg-3 mg(2.5 mg base)/3 mL 3 mL inhalation Q6H PRN 180 mL 0RF wheezing Coding Level of Care Code Est Pt Level 4 (66556) Diagnoses Pulmonary emphysema, unspecified emphysema type J43.9 COPD type: emphysema Emphysema type: unspecified Nicotine dependence, cigarettes, uncomplicated F17.210 Lung mass R91.8
== END 2023-12-28 11:48 | disposition home or self-care (01) ==
PROVIDERS: PCP Internal Medicine; Visit Provider Nurse Practitioner Family
DX: J43.9 Emphysema, unspecified (principal); F17.210 Nicotine dependence, cigarettes, uncomplicated; R91.8 Other nonspecific abnormal finding of lung field
CPT/HCPCS: 99214

== ENCOUNTER → 2023-12-28 10:10 | Outpatient (BNVA) | payer MEDICARE, SELFPAY | PROVIDERS: PCP Internal Medicine; Visit Provider Nurse Practitioner Family | DX: J43.9 Emphysema, unspecified (principal); R91.8 Other nonspecific abnormal finding of lung field; F17.210 Nicotine dependence, cigarettes, uncomplicated | CPT/HCPCS: 99212 ==

== ENCOUNTER → 2023-12-28 11:16 | Outpatient (BNV) | payer MEDICARE, SELFPAY | PROVIDERS: PCP Internal Medicine; Visit Provider Internal Medicine | DX: C34.11 Malignant neoplasm of upper lobe, right bronchus or lung (principal); F17.210 Nicotine dependence, cigarettes, uncomplicated; C78.7 Secondary malignant neoplasm of liver and intrahepatic bile duct | CPT/HCPCS: 99205; 99214; G2211 ==

== ENCOUNTER 2024-01-04 14:08 | Outpatient (REF) | payer MEDICARE, SELFPAY ==
--- NOTE | ~2024-01-04 | MR_ITS ---
EXAMINATION: MR BRAIN WITHOUT AND WITH CONTRAST CLINICAL INFORMATION: Lung cancer staging. COMPARISON: None available. TECHNIQUE: MRI of the brain was obtained using routine sequences without and following the administration of 4.5 mL of Gadavist intravenous contrast. FINDINGS: No focal restricted diffusion is demonstrated to suggest acute or subacute cerebral ischemia. No evidence of acute or chronic hemorrhagic products on heme-sensitive imaging. Scattered and partially confluent periventricular, deep white matter, and brainstem T2 FLAIR hyperintensities consistent with moderate underlying microangiopathy. Proportional prominence of the ventricles and sulcal spaces without evidence of obstructive hydrocephalus. No abnormal mass effect. No midline shift. Normal appearance of the pituitary gland. Normal positioning of the cerebellar tonsils. Normal arterial and venous vascular flow voids are present. No abnormal contrast enhancement. There is an enhancing expansile lesion associated with the left aspect of the occipital bone, measuring up to 1.3 cm. No demonstrated additional marrow signal abnormalities. Mild mucosal thickening of the paranasal sinuses. No signal abnormalities within the mastoids. MR/MR head/brain wo/w con IMPRESSION: 1. There is a 1.3 cm enhancing expansile lesion associated with the left aspect of the occipital bone. Given the patient's history, this is suspicious for an underlying osseous metastatic lesion. 2. No acute intracranial abnormalities. No abnormal intracranial enhancement. 3. Moderate underlying microangiopathy and generalized cerebral volume loss.
[2024-01-04] MEDS: gadobutroL 7.5 ML VIAL IVPUSH (16:37)
== END 2024-01-04 14:09 | disposition home or self-care (01) ==
LOC: HO.MRI 14:08
PROVIDERS: PCP Internal Medicine; Visit Provider Internal Medicine
DX: R91.8 Other nonspecific abnormal finding of lung field (principal)
CPT/HCPCS: 70553; A9585

== ENCOUNTER 2024-01-05 14:13 | Outpatient (AMB) | payer MEDICARE, SELFPAY ==
[2024-01-05 14:18] VITALS: BMI 17.1
--- NOTE | 2024-01-05 14:18 | MHC.OFFVIS ---
Vital Signs 01/05/24 14:18 Height 5 ft 7 in Weight 109 lb BMI 17.1 Intake Visit Reasons: f/u s/p CTA AAA Repair 12/24/2023 Intake Note: follow up CTA Abd/pelvis 12/24/23, no abd pain, no complaints Accompanied by: Self / Same As Patient Allergies Penicillins Allergy (Verified 01/05/24 14:20) Hives vancomycin Allergy (Verified 01/05/24 14:20) Itching Bee stings Allergy (Severe, Uncoded 01/05/24 14:20) hives HPI HPI f/u s/p CTA AAA Repair 12/24/2023: Details: Very pleasant 68-year-old female presents for routine 3 month surveillance follow-up status post endovascular aneurysm repair. She had undergone repair with the [employer] graft. She has no postprocedure issues. Reports that she is doing fairly well from that. She has undergone surveillance CT scan and now presents for routine follow-up. [facility] Medical History History of abdominal aortic aneurysm Iron deficiency anemia Seasonal allergies History of verrucae (wart) excision (~1973) Nicotine dependence, cigarettes, uncomplicated Osteopenia (~2016) Colon cancer screening Dog bite of finger (~2018) Herpes zoster Colonoscopy refused Urinary, incontinence, stress female COPD (chronic obstructive pulmonary disease) Graves disease Acquired hypothyroidism (~2004) Surgical History History of repair of aneurysm of abdominal aorta H/O excision of ganglion cyst (~1973) Family History Father Diabetes mellitus Mother Diabetes mellitus Brother Bone cancer Daughter No problems noted. Daughter No problems noted. Social History Household Members: Spouse and Children Housing: House Are you a primary animal caretaker supervisor to a significant other at home: No Do you presently have visiting nurse or other home services: No Alcohol intake: never Patient Tobacco Use Status: Current everyday Tobacco user Tobacco use type: Cigarette Cigarette Packs Per Day: 0.5 Years Smoked: 50+ e-Cigarette/Vaping Use: Never Used Second Hand Smoke Exposure: No Substance Use Type: Marijuana Advance Directives Date on File: 08/25/23 service: No Current occupational status: retired Gender identity: Female Cognitive needs: No Hearing needs: No Vision needs: Yes Review of Systems Const All systems reviewed & are unremarkable except as noted in HPI and below Reports no additional complaints ENT Reports Normal hearing present Card Denies chest pain, Denies chest pain at rest, Denies chest pain with activity and Denies pedal edema Resp Denies cough GI Denies abdominal pain Musc Denies abnormal gait, Denies muscle cramps and Denies radiating pain into limb Skin/Breast Denies skin ulcer and Denies wounds Neuro Reports Normal hearing present and Denies abnormal gait Psych Reports no additional complaints Physical Exam Vital Signs: BMI result Body Mass Index 17.1 Const General: cooperative, healthy appearing and comfortable Orientation/consciousness: oriented to person, oriented to place and oriented to time HEENT Head: Yes normal to inspection Neck Neck: Yes normal visual inspection Carotids: no bruits Chest Chest palpation & inspection: normal inspection of the chest Resp Effort & Inspection: normal respiratory effort and able to speak in complete sentences Auscultation: clear to auscultation bilaterally, no crackles, no rales, no rhonchi and no wheezes Cardio Rate: regular rate Rhythm: regular rhythm Heart sounds: S1 normal heart sound present and S2 normal heart sound present Bruits: no carotid bruits Peripheral pulses: Peripheral pulses 2+ throughout GI Inspection: Yes normal to inspection Skin Wounds: no wounds Hair: normal Neuro General: oriented to person, oriented to place and oriented to time Cranial nerves: Yes CN's II-XII intact bilaterally and Yes Normal hearing present Cognition (Neuro): normal cognition Motor exam (neuro): 5/5 motor strength present throughout Extrem Other: venous exam: No significant superficial varicosities or spider telangiectasias, minimal edema General: No clubbing, No cyanosis and No edema Psych Appearance: grossly normal Mental Status: mental status grossly normal Speech and movement: Normal speech and movement present Results Reviewed Results Reviewed: CT angiogram dated 12/24/2023 demonstrates no evidence endoleak with appropriate placed endograft. In addition there is a new left lobe liver mass. Written report and images were reviewed. Assessment & Plan Assessment & Plan (1) AAA (abdominal aortic aneurysm) without rupture: Comment: 09/14/2023 - endovascular aortic aneurysm repair with [employer] [place] graft Code(s): I71.40 - Abdominal aortic aneurysm, without rupture, unspecified Category: Medical Qualifiers: Abdominal aorta location: infrarenal aorta Qualified Code(s): I71.43 - Infrarenal abdominal aortic aneurysm, without rupture Plan: In short patient is doing well with aortic endograft. She will require [address] scan in terms of her aneurysm. In addition she has a new liver mass which is concerning for metastatic disease. She is undergoing evaluation and treatment by Hematology-Oncology services. We will follow-up once again with her with a [address] scan. Thank you for allowing us to assist in her care. Orders: Orders Blood Urea Nitrogen 6 Months Z98.890 - Other specified postprocedural states Creatinine 6 Months Z98.890 - Other specified postprocedural states CT angio abdomen pelvis 6 Months Z98.890 - Other specified postprocedural states Coding Level of Care Code Est Pt Level 4 (30250) Diagnoses Infrarenal abdominal aortic aneurysm (AAA) without rupture I71.43 Abdominal aorta location: infrarenal aorta
== END 2024-01-05 14:45 | disposition home or self-care (01) ==
PROVIDERS: PCP Internal Medicine; Visit Provider Surgery Vascular Surgery
DX: I71.43 Infrarenal abdominal aortic aneurysm, without rupture (principal)
CPT/HCPCS: 99214

== ENCOUNTER → 2024-01-05 14:13 | Outpatient (BNVA) | payer MEDICARE, SELFPAY | PROVIDERS: PCP Internal Medicine; Visit Provider Surgery Vascular Surgery | DX: I71.43 Infrarenal abdominal aortic aneurysm, without rupture (principal) | CPT/HCPCS: 99212 ==

== ENCOUNTER 2024-01-06 09:13 | Day surgery (SDC) | payer MEDICARE, SELFPAY ==
[2024-01-06] VITALS (9 sets, daily range): BP systolic 110–122; BP diastolic 59–70; PULSE 68–82; RESP 18; TEMP 36.7–37; O2SAT 96–99; BMI 16.6
--- NOTE | ~2024-01-06 | US_ITS ---
Left lobe liver mass. Concern for metastatic lung cancer. PROCEDURES: 1. Limited preprocedure ultrasound of the abdomen. Permanent images saved in PACS. 2. Ultrasound-guided biopsy of the left lobe liver mass. 3. Limited preprocedure ultrasound of the abdomen. Permanent images saved in PACS. CLINICIANS: Peter Field PA-C MEDICATIONS: -Versed 1 mg, Fentanyl 50 mcg, and lidocaine 1% 10 mL SQ -Antibiotics: None -For additional details, please see nursing flowsheet. COMPLICATIONS: None ESTIMATED BLOOD LOSS: < 5 ml CONTRAST: None SPECIMENS: 5 x 20 g cores were sent to pathology MODERATE SEDATION TIME: 15 min PROCEDURE NOTE: The procedure, risks, benefits, and alternatives were carefully explained to the patient and written informed consent was obtained. The patient was placed supine on the exam table. A timeout was performed. A limited ultrasound of the abdomen was performed to localize the left lobe liver lesion and choose appropriate needle entry and trajectory. The patient was prepped and draped in usual sterile fashion. The skin and deeper soft tissues were anesthetized with lidocaine. Under ultrasound guidance, a 19 gague trocar needle was advanced to the liver lesion. A 20 gauge biopsy device was inserted through the trocar needle and advanced into the liver lesion. A total of 5, 20 gague cores were performed. The specimens were placed in formalin. A total of 2 Gelfoam torpedoes were then administered through the trocar needle into the biopsy tract and at the level of the liver capsule. The needle was removed. A limited post procedure ultrasound was then performed. Images were saved in PACS. A dry dressing was applied and secured with Tegaderm. There were no immediate complications. The patient was stable after the procedure and was transferred to the post anesthesia care unit. The procedure was done under moderate sedation with a dedicated nurse for monitoring of vital signs. US/US biopsy liver Impression: Ultrasound-guided biopsy of a left lobe liver mass. This procedure was performed by Peter Field PA-C and supervised by Dr. Casas.
--- NOTE | 2024-01-06 11:06 | MHC.SHP ---
Pre-Procedural Eval Section A - 24 Hr Update-Section A only Date of Service: 01/06/24 Section B - Complete if H&P > 30 days Chief Complaint: Probable metastatic lung cancer Details of Present Illness: 68 y/o female with lung lesions and a left lobe liver mass Relevant Family History (Specify if Yes): No Relevant Social History: Tobacco Use Present Medications: see Short Stay Collaborative assessment Medical History: Significant History History of Previous Operations: Relevant previous surgery/procedure and date(s) (EVAR) Allergies: Allergies Allergy/AdvReac Type Severity Reaction Status Date / Time Penicillins Allergy Hives Verified 01/05/24 14:20 vancomycin Allergy Itching Verified 01/05/24 14:20 Bee stings Allergy Severe hives Uncoded 01/05/24 14:20 Review of Systems Sugical H&P ROS: Negative: Cardiovascular, Neurological and Gastrointestinal Exam Surgical H&P Exam: Normal: Heart, Normal: Lungs, Normal: Abdomen (soft, NT), Normal: Skin and Normal: Neurological Plan Targeted liver biopsy Time Spent With Patient Time: Total time managing care of this patient today ____ minutes.
[2024-01-06] MEDS: Lidocaine HCl 1 % MPF 5 ML VIAL 10 ML SUBCUT (12:22)
== END 2024-01-06 14:52 | disposition home or self-care (01) ==
PROVIDERS: Student in an Organized Health Care Education/Training Program; PCP Internal Medicine; Visit Provider Internal Medicine
DX: C22.7 Other specified carcinomas of liver (principal); R16.0 Hepatomegaly, not elsewhere classified; R91.8 Other nonspecific abnormal finding of lung field; R04.2 Hemoptysis; R05.9 Cough, unspecified; J44.9 Chronic obstructive pulmonary disease, unspecified; J30.2 Other seasonal allergic rhinitis; E05.00 Thyrotoxicosis with diffuse goiter without thyrotoxic crisis or storm; M85.80 Other specified disorders of bone density and structure, unspecified site; D50.9 Iron deficiency anemia, unspecified; Z79.899 Other long term (current) drug therapy; Z98.890 Other specified postprocedural states; F17.210 Nicotine dependence, cigarettes, uncomplicated; Z88.0 Allergy status to penicillin; Z88.1 Allergy status to other antibiotic agents
CPT/HCPCS: 47000; 76942; 86850; 86900; 86901; 88307; 88313; 88341; 88342; 99152; J2250; J2310; J3010

== ENCOUNTER → 2024-01-06 11:02 | Outpatient (BNV) | payer MEDICARE, SELFPAY | PROVIDERS: PCP Internal Medicine; Visit Provider Physician Assistant Surgical | DX: R16.0 Hepatomegaly, not elsewhere classified (principal) | CPT/HCPCS: 47000; 76942 ==

== ENCOUNTER → 2024-01-18 08:11 | Day surgery (SDC) | payer MEDICARE, SELFPAY ==
--- NOTE | 2024-01-18 08:23 | PC.NURSE ---
Per D. Field PA pt cancelled.
== END ==
PROVIDERS: PCP Internal Medicine; Visit Provider Internal Medicine
DX: R91.8 Other nonspecific abnormal finding of lung field (principal); Z53.8 Procedure and treatment not carried out for other reasons

== ENCOUNTER 2024-02-03 11:48 | Day surgery (SDC) | payer MEDICARE, SELFPAY ==
--- NOTE | 2024-02-02 09:04 | HO.ANESPROP2 ---
Documented by User: Arcelia Bustamante NP 02/02/24 09:06 HPI - Anesthesia Eval Consult details Narrative: 68yo F for Bronchoscopy Fiberoptic s/p AAA repair 09/2023 with GA-ETT 7 (Cardiac and pulmo cleared preop) Per preop anesthesia COPD. Stable, Scheduled inhalers as rx'd. Albuterol rare (with colds). Smoker. Chantix with decrease in smoking Mother with severe PONV. Pt with severe N/V with codeine (only took once) Graves ds s/p LEGGETT PMFSH Active Problems Active Problems: All Active Problems Lung mass (Acute) History of repair of aneurysm of abdominal aorta (Acute) History of abdominal aortic aneurysm (Acute) Iron deficiency anemia (Acute) Constipation by delayed colonic transit (Acute) Acquired hypothyroidism (Acute ~2004) Osteopenia (Acute ~2017) COPD (chronic obstructive pulmonary disease) (Acute) Nicotine dependence, cigarettes, uncomplicated (Acute) Urinary, incontinence, stress female (Acute) Colonoscopy refused (Acute) Past Medical History Medical History Diverticulosis History of abdominal aortic aneurysm Iron deficiency anemia Seasonal allergies History of verrucae (wart) excision (~1973) Nicotine dependence, cigarettes, uncomplicated Osteopenia (~2016) Colon cancer screening Dog bite of finger (~2018) Herpes zoster Colonoscopy refused Urinary, incontinence, stress female COPD (chronic obstructive pulmonary disease) Graves disease Acquired hypothyroidism (~2004) Family History Family History Father Diabetes mellitus Mother Diabetes mellitus Brother Bone cancer Daughter No problems noted. Daughter No problems noted. Family history of problems with anesthesia: Yes (PONV) Surgical History Surgical History History of repair of aneurysm of abdominal aorta H/O excision of ganglion cyst (~1973) History of Problems with Anesthesia: No Social History Social History Household Members: Spouse and Children Housing: House Are you a primary early breastfeeding care specialist to a significant other at home: No Do you presently have visiting nurse or other home services: No Alcohol intake: never Patient Tobacco Use Status: Current everyday Tobacco user Tobacco use type: Cigarette Cigarette Packs Per Day: 1.5 Cigarettes Per Day: 30.0 Years Smoked: 50+ e-Cigarette/Vaping Use: Never Used Second Hand Smoke Exposure: No Use of substances other than those prescribed or required for medical reasons: Yes Substance Use Type: Marijuana Substance Use Type Other:: smokes dailly/used on 02/02/24 Are you DNR?: Yes Advance Directives: No Advance Directives Information Provided: Yes Advance Directives Date on File: 08/25/23 Recently lost weight without trying: No Nutrition Risks: No Nutritional Risk Patient : No service: No Current occupational status: retired Gender identity: Female Cognitive needs: No Hearing needs: No Vision needs: Yes Meds Allergies Allergy/AdvReac Type Severity Reaction Status Date / Time Penicillins Allergy Hives Verified 02/03/24 12:08 vancomycin Allergy Itching Verified 02/03/24 12:08 Bee stings Allergy Severe hives Uncoded 01/11/24 10:46 Home Medications ?Medication ?Instructions ?Recorded ?Confirmed ?Last Taken ?Type cholecalciferol (vitamin D3) 50 50 mcg PO DAILY 05/01/20 02/03/24 02/02/24 History mcg (2,000 unit) capsule Exam Pertinent Lab Results Pertinent Lab Results: Laboratory Tests 12/18/23 06:42 WBC 13.6 H Hgb 11.6 L Hct 37.2 Plt Count 346 Sodium 134 L Potassium 4.1 Chloride 100 Carbon Dioxide 25 BUN 11 Creatinine 0.74 Narrative Narrative: EKG 08/2023 Details: EKG with sinus rhythm at 74/Min; low voltage complexes in lead 1/aVL and could be related to body habitus/emphysema. Can not exclude prior infarct. Normal VT and corrected QT. ECHO 08/2023 Conclusions: - Normal left ventricular size and systolic function. The visually estimated ejection fraction is between 60-65%. There is evidence of regional wall motion abnormalities. Diastolic function is normal for age. There is severe septal asymmetric hypertrophy. - The basal inferior segment is akinetic. - Normal right ventricular cavity size and systolic function. - Mildly elevated right atrial pressure. - The inferior vena cava is dilated and collapses greater than 50% with inspiration. NM cardiolite stress test 08/2023 Impression: 1. Myocardial perfusion imaging study shows likely normal myocardial perfusion 2. Gated LVEF is 65% 3. Transient ischemic dilatation not present EKG is Nondiagnostic for ischemia CT angio abdomen pelvis 08/2023 IMPRESSION: * The fusiform infrarenal abdominal aorta aneurysm measures up to 6 cm maximum transverse diameter. * Colonic diverticulosis without diverticulitis. Assessment and Plan Assessment Anesthesia Assessment: Chart Reviewed Final Anesthetic Review Family History of Problems with Anesthesia: Yes (PONV) History of Problems with Anesthesia: No Documented by User: Cecilia Mcclendon MD 02/03/24 13:24 [facility] Past Medical History Medical History Diverticulosis History of abdominal aortic aneurysm Iron deficiency anemia Seasonal allergies History of verrucae (wart) excision (~1973) Nicotine dependence, cigarettes, uncomplicated Osteopenia (~2016) Colon cancer screening Dog bite of finger (~2018) Herpes zoster Colonoscopy refused Urinary, incontinence, stress female COPD (chronic obstructive pulmonary disease) Graves disease Acquired hypothyroidism (~2004) Family History Family History Father Diabetes mellitus Mother Diabetes mellitus Brother Bone cancer Daughter No problems noted. Daughter No problems noted. Surgical History Surgical History History of repair of aneurysm of abdominal aorta H/O excision of ganglion cyst (~1973) Social History Social History Household Members: Spouse and Children Housing: House Are you a primary early breastfeeding care specialist to a significant other at home: No Do you presently have visiting nurse or other home services: No Alcohol intake: never Patient Tobacco Use Status: Current everyday Tobacco user Tobacco use type: Cigarette Cigarette Packs Per Day: 1.5 Cigarettes Per Day: 30.0 Years Smoked: 50+ e-Cigarette/Vaping Use: Never Used Second Hand Smoke Exposure: No Use of substances other than those prescribed or required for medical reasons: Yes Substance Use Type: Marijuana Substance Use Type Other:: smokes dailly/used on 02/02/24 Are you DNR?: Yes Advance Directives: No Advance Directives Information Provided: Yes Advance Directives Date on File: 08/25/23 Recently lost weight without trying: No Nutrition Risks: No Nutritional Risk Patient : No service: No Current occupational status: retired Gender identity: Female Cognitive needs: No Hearing needs: No Vision needs: Yes Meds Allergies Allergy/AdvReac Type Severity Reaction Status Date / Time Penicillins Allergy Hives Verified 02/03/24 12:08 vancomycin Allergy Itching Verified 02/03/24 12:08 Bee stings Allergy Severe hives Uncoded 01/11/24 10:46 Home Medications ?Medication ?Instructions ?Recorded ?Confirmed ?Last Taken ?Type cholecalciferol (vitamin D3) 50 50 mcg PO DAILY 05/01/20 02/03/24 02/02/24 History mcg (2,000 unit) capsule Exam Airway Mallampati Class: III TM Dist: >3cm Neck ROM: Limited Loose/Missing/Broken Teeth: Yes and Upper Heart: RRR Lungs: SCATTERED RHONCHI Assessment and Plan Assessment Anesthesia Assessment: Anesthesia Plan Discussed Final Anesthetic Review NPO: Yes ASA Class: III and Emergency Final Preanesthetic Review: Meds/Allgs Chart Reviewed, Consent Obtained/Reviewed and Anes Risks/Benef Reviewed Patient Risk: Intermediate Procedure Risk: Intermediate Anesthetic Plan Anesthetic Plan: GA Disposition: Standard PACU
[2024-02-03] VITALS (7 sets, daily range): BP systolic 96–105; BP diastolic 58–63; PULSE 84–91; RESP 16–22; TEMP 36.8–37.2; O2SAT 97–100; BMI 16.3
[2024-02-03] MEDS: Lactated Ringers 1,000 ML 100 ML IVCONT (12:42)
[2024-02-03] MEDS: Albuterol Sulfate (0.083%) 2.5 MG/3 ML VIAL.NEB INHALE (12:43)
--- NOTE | 2024-02-03 12:51 | MHC.SHP ---
Pre-Procedural Eval Section A - 24 Hr Update-Section A only Date of Service: 02/03/24 The patient is an INPATIENT: No Changes since office visit: Yes Patient answered all questions; No Cold of Flu in the past 2 weeks, No New Medical Problems and No Changes in Medication The patient has been examined within 24 hours of the surgical procedure. The History & Physical has been completed within 30 days and I have reviewed it.: No Section B - Complete if H&P > 30 days Chief Complaint: Other nonspecific abnormal finding of lung field Details of Present Illness: Undifferentiated carcinoma Relevant Family History (Specify if Yes): No Relevant Social History: Tobacco Use Present Medications: see Short Stay Collaborative assessment Medical History: Significant History (Undifferentiated carcinoma, COPD) Allergies: Allergies Allergy/AdvReac Type Severity Reaction Status Date / Time Penicillins Allergy Hives Verified 02/03/24 12:08 vancomycin Allergy Itching Verified 02/03/24 12:08 Bee stings Allergy Severe hives Uncoded 01/11/24 10:46 Review of Systems Sugical H&P ROS: Negative: Constitution, Cardiovascular, Respiratory, Neurological, Psychiatric, Hem-Onc, Allergic/Immunologic, Gastrointestinal, Genitourinary, Musculoskeletal, Integumentary, Endocrine and Eyes/Ears/Nose/Throat Exam Surgical H&P Exam: Normal: HEENT, Normal: Heart, Normal: Lungs, Normal: Extremities, Normal: Abdomen, Normal: Skin and Normal: Neurological Plan Diagnosis/Plan: Unchanged I have reviewed the history and physical and performed a pertinent physical examination on my patient. No changes have occurred unless specified. Time Spent With Patient Time: Total time managing care of this patient today ____ minutes.
--- NOTE | 2024-02-03 14:10 | P.BOP_ITS ---
Brief Operative Note Date of Service: 02/03/24 Pre-op diagnosis: Lung cancer Post-op diagnosis: same Procedure: Flexible bronchoscope advanced through the ET tube with patient intubated for procedure and through the tracheobronchial tree. Normal endobronchial mucosa noted, except at the right middle lobe bronchus that is partially occluded by and endobronchial tumor. Four endobronchial forceps biopsies obtained and sent for further pathologic testing. Hemostasis at the biopsy site observed. Patient tolerated procedure well and was returned to PACU in stable condition. Surgeon: Andry Sanchez MD Anesthesia: GETA Was an Boiler Control Technician used for this Procedure?: No Estimated blood loss (mL): 0 Condition: stable Disposition: PACU
== END 2024-02-03 15:26 | disposition home or self-care (01) ==
PROVIDERS: PCP Internal Medicine; Visit Provider Internal Medicine Pulmonary Disease
PROC: 0BJ08ZZ Inspection of Tracheobronchial Tree, Via Natural or Artificial Opening Endoscopic (ICD-10-PCS; CPT 31622; principal; 2024-02-03 13:30)
DX: C34.2 Malignant neoplasm of middle lobe, bronchus or lung (principal); J43.9 Emphysema, unspecified; R04.2 Hemoptysis; E05.00 Thyrotoxicosis with diffuse goiter without thyrotoxic crisis or storm; I71.40 Abdominal aortic aneurysm, without rupture, unspecified; F17.210 Nicotine dependence, cigarettes, uncomplicated; Z98.890 Other specified postprocedural states; Z79.899 Other long term (current) drug therapy; Z88.0 Allergy status to penicillin; Z88.1 Allergy status to other antibiotic agents
CPT/HCPCS: 31625; 88305; 94640; J0171; J1100; J2250; J2371; J2405; J2704; J3010

== ENCOUNTER → 2024-02-03 11:48 | Outpatient (BNV) | payer MEDICARE, SELFPAY | PROVIDERS: PCP Internal Medicine; Visit Provider Internal Medicine Pulmonary Disease | DX: C34.90 Malignant neoplasm of unspecified part of unspecified bronchus or lung (principal) | CPT/HCPCS: 31625 ==